=== PATIENT | male | born 1940 | race Caucasian/White ===

== ENCOUNTER → 2016-09-01 | Outpatient (CLI) | payer OTHER ==
[~2016-09-01] MED LIST: ACET-1487 PO; AMLO-110 PO; ASPI81TA28 PO; ATOR-24 PO; EMPA1TAB3 PO; GLIM4TAB2 PO; LOSA100T2 PO; METF-384 PO; METO-551 PO; OMEP20CA9 PO; POTA10CA PO; [UNRECOGNIZED DRUG - CODE] PO
[2016-09-01 13:27] LABS: BLOOD UREA NITROGEN 27 mg/dl (7-18); GLUCOSE 127 mg/dl (70-99)
[2016-09-01 13:28] LABS: ALT/SGPT 19 U/L (12-78); AST/SGOT 15 U/L (15-37); BUN/CREATININE RATIO 16.8 (10-20); CALCIUM 9.6 mg/dl (8.5-10.1); CARBON DIOXIDE 24 mmol/L (21-32); CHLORIDE 103 mmol/L (98-107); CHOLESTEROL 172 mg/dl (0-200); SODIUM 139 mmol/L (136-145); TRIGLYCERIDES 222 mg/dl (0-150); VERY LOW DENSITY LIPOPROT CALC 44 mg/dl
[2016-09-01 13:31] LABS: CHOLESTEROL/HDL RATIO 2.9; HDL CHOLESTEROL 60 mg/dl; LDL CHOLESTEROL CALCULATED 68 mg/dl
== END | disposition home or self-care (01) ==
LOC: C.LABMFLN 11:05
PROVIDERS: ATTEND Family Medicine
DX: I10 Essential (primary) hypertension (principal); E11.49 Type 2 diabetes mellitus with other diabetic neurological complication; E78.00 Pure hypercholesterolemia, unspecified

== ENCOUNTER → 2016-09-08 | Outpatient (CLI) | payer OTHER ==
[2016-09-08 13:50] LABS: ESTIMATED AVERAGE GLUCOSE 177 mg/dl; HA1C FLAG Normal (Normal)
== END | disposition home or self-care (01) ==
LOC: C.LABMFLN 09:14
PROVIDERS: ATTEND Family Medicine
DX: E11.49 Type 2 diabetes mellitus with other diabetic neurological complication (principal)

== ENCOUNTER → 2016-12-25 | Outpatient (CLI) | payer OTHER ==
[~2016-12-25] MED LIST changes: +CANA1TAB8; +HYZ/50125 PO; +OMEG10007 PO
--- NOTE | 2017-01-26 08:03 | CODING QUERY NO DIAGNOSIS ---
TREATMENT RENDERED WITHOUT A DIAGNOSIS To promote full compliance with coding requirements relating to patient care, physician participation is requested in all cases of mud car worker uncertainty. Please assist us with providing a diagnosis/symptom for the test(s) below: A diagnosis/symptom was not documented on your Order. A valid diagnosis/symptom is required to bill all insurances. Please remember that we are unable to code a diagnosis of rule out, probable, possible, questionable, or suspected. Tests that require a diagnosis: * PSA DIAGNOSIS: Provider Signature: Date: Thank you Sangeetha Carvalho [employer] Once completed, please kindly fax back to [phone] For questions please call [phone]
== END | disposition home or self-care (01) ==
LOC: C.LABMFLN 18:24
PROVIDERS: ATTEND Physician Assistant Medical
DX: C61 Malignant neoplasm of prostate (principal)

== ENCOUNTER → 2017-01-04 | Outpatient (CLI) | payer OTHER ==
[2017-01-04 13:24] LABS: ALT/SGPT 24 U/L (12-78); AST/SGOT 15 U/L (15-37); BLOOD UREA NITROGEN 32 mg/dl (7-18); BUN/CREATININE RATIO 18.8 (10-20); CARBON DIOXIDE 25 mmol/L (21-32); CHLORIDE 107 mmol/L (98-107); CHOLESTEROL 159 mg/dl (0-200); GLUCOSE 143 mg/dl (70-99); POTASSIUM 3.7 mmol/L (3.5-5.1); SODIUM 143 mmol/L (136-145)
[2017-01-04 13:26] LABS: ALB/GLOB RATIO 1.2 (0.9-2); ALKALINE PHOSPHATASE 59 U/L (45-117); CHOLESTEROL/HDL RATIO 2.7; HDL CHOLESTEROL 58 mg/dl; LDL CHOLESTEROL CALCULATED 74 mg/dl; TRIGLYCERIDES 135 mg/dl (0-150); VERY LOW DENSITY LIPOPROT CALC 27 mg/dl
[2017-01-04 13:30] LABS: CALCIUM 9.5 mg/dl (8.5-10.1)
[2017-01-04 13:37] LABS: RATIO 125.8 mcg/mg (0-30.0)
== END | disposition home or self-care (01) ==
LOC: C.LABMFLN 10:22
PROVIDERS: ATTEND Family Medicine
DX: I25.10 Atherosclerotic heart disease of native coronary artery without angina pectoris (principal); E11.49 Type 2 diabetes mellitus with other diabetic neurological complication; E78.00 Pure hypercholesterolemia, unspecified; M54.16 Radiculopathy, lumbar region

== ENCOUNTER → 2017-01-15 | Outpatient (CLI) | payer OTHER ==
[2017-01-16 07:39] LABS: ESTIMATED AVERAGE GLUCOSE 183 mg/dl; HA1C FLAG Normal (Normal)
== END ==
LOC: C.LABMFLN 11:51
PROVIDERS: ATTEND Family Medicine
DX: I10 Essential (primary) hypertension (principal); E11.49 Type 2 diabetes mellitus with other diabetic neurological complication; E78.00 Pure hypercholesterolemia, unspecified

== ENCOUNTER → 2017-01-16 | Outpatient (CLI) | payer OTHER ==
[~2017-01-16] MED LIST changes: -CANA1TAB8; -HYZ/50125 PO; -OMEG10007 PO
[2017-01-16 13:44] VITALS: BP 137/78; PULSE 67; O2SAT 95
--- NOTE | 2017-01-16 15:14 | Radiation Oncology Follow-Up ---
Radiation Oncology Follow-Up Date of Visit Jan 16, 2017. Reason For Visit This patient returns today for his regular scheduled active surveillance follow- up visit. He was last seen in July 2016 and is being followed every 6 months. Radiation Completion Date none, Active Surveillance History of Present Illness Mr. Conde was previously seen on 09/03/2015. He was seen initially on 2014 for a consultation. The patient decided at that time to proceed with active surveillance. He presented with a prostate-specific antigen of 8.64 and a clinical stage TIc. 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 His prostate-specific antigen at that time was performed on 05/05/2015 and was 6.9. Since that time the patient continues to do well. He denies any bony pain or discomfort. He denies any significant change in his all or bladder status. His AUA remains very good with a value of 6. He also completed The Expanded Prostate Cancer Index Composite for Clinical Practice (EPIC-CP). He recorded 0 of 12 urinary incontinence symptom score, one of 12 urinary irritation/obstruction symptom score, 0 of 12 bowel symptom score, 6 of 12 sexual symptom score and 2 of 12 vitality/hormonal symptom score. His Overall Prostate Cancer Quality of Life Score was 9 out of 60. This is relatively stable with his prior score being 10 out of 60. His AUA has significantly improved from 15 in June. Since August the patient has continued to do fairly well. He has noticed a slight increase in his AUA score which was 9-10 compared to 6 in August.-His EPIC-CP score is remained fairly stable at 9 today compared to 10 in August. The patient does note occasional discomfort in the right groin region that is intermittent and unrelated to bowel movements or urination. He denies any significant bowel changes. He underwent a repeat prostate-specific antigen as ordered by Dr. Bean performed on 01/07/2016. This was 7.47 which was increased from 7.28 in August of this year. Since the patient's visit in February 2016 he continued to do well. His AUA score was a 9 which is unchanged from his previous reported scores. HisEPIC-CP score was an 11/60. This was slightly higher than the 9. He reported in February and a 10 in August. The patient has had a repeat prostate-specific antigens. His prostate-specific antigen from 04/28/2016 was 8.43. This was repeated on 2015 and was 9.07. Both of these are an increase from his reported prostate- specific antigen from December 2015 of 7.47. Interim History Since the patient's last visit on 07/18/2016 he is noted the presence of some back pain. He was seen by his PCP Dr. Bean who ordered a MRI. This was performed on 12/31/2014. This revealed multilevel degenerative disc disease with the worst affected areas at L4-L5 followed by L3-L4 and L5-S1. There was no evidence of metastatic bony disease. The patient's urinary symptoms continue to improve. His AUA score in July was a 9. Today he did improve to a 5. We also continue to follow his EPIC-CP QoL score which in July was in 11 and today was a 7. He continues to be followed with serial prostate-specific antigens. His most recent was on 12/25/2016. This showed a slow but steady increase to 9.55. This is up from his prostate-specific antigen on 07/04/2016 at 9.07. Patient otherwise has no other complaints and remains stable. Allergies Coded Allergies: No Known Allergies (Verified , NONE, 04/07/15) Home Medications Scheduled Amlodipine (Norvasc), 5 MG PO DAILY Aspirin (Aspirin Ec), 81 MG PO DAILY Atorvastatin (Lipitor), 40 MG PO HS Empagliflozin (Jardiance), 25 MG PO QAM Empagliflozin (Jardiance), 1 TAB PO DAILY Losartan Potassium & Hydrochlo (Hyzaar), 1 TAB PO DAILY Metformin Hcl (Glucophage), 1,000 MG PO BID Metoprolol Tartrate (Lopressor), 50 MG PO Q12 Omeprazole (Prilosec), 20 MG PO QAM Potassium Chloride (Potassium Chloride), 10 MEQ PO BID Terazosin HCl (Terazosin HCl), 5 MG PO HS Scheduled PRN Acetaminophen (Tylenol Arthritis Ext Rel), 1,300 MG PO Q8H PRN for Pain Review of Systems Gastrointestinal: Symptoms: WNL Oral: Symptoms: No Problems Respiratory: Symptoms: WNL Urinary: Symptoms: Frequency Comments: denies pain or burning, nocturia 2 - 3 , Skin: Symptoms: No Problems Physical Exam Vital Signs Date Time Temp Pulse Resp B/P (MAP) Pulse Ox O2 Delivery O2 Flow Rate FiO2 6/6/17 13:44 67 20 137/78 95 Pain: Side: Bilateral Patient Pain Scale: 0 - 10 Initial Pain Intensity: 0.0 General Appearance: WD/WN, + mild distress (from his intermittent low back pain.) Eyes: normal inspection ENT: normal ENT inspection Neck: supple, no adenopathy Respiratory/Chest: chest non-tender, lungs clear, normal breath sounds Cardiovascular: regular rate, rhythm, no murmur Abdomen: non tender Anal / Rectum: On digital rectal exam there is normal sphincter tone. The prostate is not enlarged. There is no induration or nodularity palpated on the prostate. There are no rectal mucosal abnormalities appreciated and no blood on the examining finger. Extremities: normal range of motion Neurologic/Psychiatric: normal mood/affect, oriented x 3 Skin: normal color Lymphatic: no adenopathy Laboratory Studies Test 12/25/16 14:56 01/04/17 10:02 01/15/17 16:33 Prostate Specific Antigen 9.550 ng/ml (0.000-4.000) Urine Random Creatinine 93.0 mg/dl Urine Random Microalbumin 117.0 mg/L Urine Microalbumin/Creatinine Ratio 125.8 mcg/mg (0-30.0) Sodium Level 143 mmol/L (136-145) Potassium Level 3.7 mmol/L (3.5-5.1) Chloride Level 107 mmol/L (98-107) Carbon Dioxide Level 25 mmol/L (21-32) Anion Gap 11.0 mmol/L (3-11) Blood Urea Nitrogen 32 mg/dl (7-18) Creatinine 1.70 mg/dl (0.60-1.40) Estimated GFR () 43.8 Estimated GFR (Non- 37.8 BUN/Creatinine Ratio 18.8 (10-20) Random Glucose 143 mg/dl (70-99) Calcium Level 9.5 mg/dl (8.5-10.1) Total Bilirubin 0.7 mg/dl (0.2-1) Aspartate Amino Transferase (AST) 15 U/L (15-37) Alanine Aminotransferase (ALT) 24 U/L (12-78) Alkaline Phosphatase 59 U/L (45-117) Total Protein 7.2 gm/dl (6.4-8.2) Albumin 3.9 gm/dl (3.4-5.0) Globulin 3.3 gm/dl (2.5-4.0) Albumin/Globulin Ratio 1.2 (0.9-2) Triglycerides Level 135 mg/dl (0-150) Cholesterol Level 159 mg/dl (0-200) HDL Cholesterol 58 mg/dl LDL Cholesterol, Calculated 74 mg/dl VLDL Cholesterol, Calculated 27 mg/dl Cholesterol/HDL Ratio 2.7 Estimated Average Glucose 183 mg/dl Hemoglobin A1c 8.0 % (4.5-5.6) Assessment & Plan In summary Mr. Conde is a 76-year-old male was diagnosed with an intermediate risk prostate cancer in October 2014. His presenting prostate-specific antigen was 8.64. His presenting [place] was 3.4 and 4.3. Based on the anticipated growth rate of these [place] scores I would anticipate a doubling time of 3-4 years. We entered his prostate-specific antigen data into the [facility] prostate-specific antigen doubling time total. This gave a doubling time of 39.3 months or 3.3 years. The velocity is 1.4 ng per mL per year. This is consistent with the anticipated growth rate. I therefore spoke with the patient about the decision to continue with active surveillance. The patient at this point felt comfortable and would like to continue active surveillance. For this reason we will see him again in 6 months with a repeat prostate-specific antigen. Given a prostate-specific antigen under 10 at this time with a normal MRI showing degenerative changes but no metastatic disease no additional studies I believe are necessary at this time. However as the patient's prostate-specific antigen continues to gradually increase as anticipated and especially if he becomes symptomatic in other areas a bone scan would be reasonable to consider at that time. We will therefore see this patient in follow-up in 6 months with a repeat prostate-specific antigen. Thank you for allowing us to participate in the care of this patient. This chart was completed in part utilizing [employer] Voice Recognition software. Attempts were made to minimize the grammatical errors, random word insertions, pronoun errors and incomplete sentences. Any formal questions or concerns about the content, text or information contained within the body of this dictation should be directly addressed to the provider for clarification. Rico Lyons MD Department of Radiation Oncology [facility] Total Time In Follow-Up I spent 15 minutes in discussion of the prostate-specific antigen changes and its implications. I spent 15 minutes in review of his chart and in preparation of this document. Copy To Jb Bean M.D.; Cristopher Tobar MD
== END | disposition home or self-care (01) ==
LOC: C.ONC 13:05
PROVIDERS: ATTEND Physician Assistant Medical
DX: Z08 Encounter for follow-up examination after completed treatment for malignant neoplasm (principal); Z92.3 Personal history of irradiation; Z85.46 Personal history of malignant neoplasm of prostate

== ENCOUNTER → 2017-05-17 | Outpatient (CLI) | payer OTHER ==
[~2017-05-17] MED LIST changes: -GLIM4TAB2 PO
[2017-05-17 14:32] LABS: ALT/SGPT 21 U/L (12-78); BLOOD UREA NITROGEN 25 mg/dl (7-18); BUN/CREATININE RATIO 15.9 (10-20); CALCIUM 9.8 mg/dl (8.5-10.1); CARBON DIOXIDE 26 mmol/L (21-32); CHLORIDE 106 mmol/L (98-107); CHOLESTEROL 159 mg/dl (0-200); GLUCOSE 130 mg/dl (70-99); POTASSIUM 4.2 mmol/L (3.5-5.1); SODIUM 140 mmol/L (136-145); TRIGLYCERIDES 194 mg/dl (0-150); VERY LOW DENSITY LIPOPROT CALC 39 mg/dl
[2017-05-17 14:35] LABS: ALB/GLOB RATIO 1.2 (0.9-2); ALKALINE PHOSPHATASE 65 U/L (45-117); AST/SGOT 17 U/L (15-37); CHOLESTEROL/HDL RATIO 2.6; HDL CHOLESTEROL 62 mg/dl; LDL CHOLESTEROL CALCULATED 58 mg/dl
== END | disposition home or self-care (01) ==
LOC: C.LABMFLN 11:46
PROVIDERS: ATTEND Family Medicine
DX: I10 Essential (primary) hypertension (principal); E11.49 Type 2 diabetes mellitus with other diabetic neurological complication; E78.00 Pure hypercholesterolemia, unspecified

== ENCOUNTER → 2017-07-03 | Outpatient (CLI) | payer OTHER | END | disposition home or self-care (01) | LOC: C.LABMFLN 12:47 | PROVIDERS: ATTEND Physician Assistant Medical | DX: C61 Malignant neoplasm of prostate (principal) ==

== ENCOUNTER → 2017-07-19 | Outpatient (CLI) | payer OTHER ==
[~2017-07-19] MED LIST changes: -AMLO-110 PO; +AMLO5TAB3 PO; +CANA1TAB8; +GLIM4TAB2 PO; +HYZ/50125 PO; +OMEG10007 PO; +TERA5CAP59 PO; -[UNRECOGNIZED DRUG - CODE] PO
[2017-07-19 13:12] VITALS: BP 122/71; PULSE 65; TEMP 36.6; O2SAT 96
--- NOTE | 2017-07-19 14:36 | Radiation Oncology Follow-Up ---
Radiation Oncology Follow-Up Date of Visit Jul 19, 2017. Reason For Visit This patient returns for his regular scheduled 6 month follow-up visit. Radiation Completion Date none History of Present Illness Mr. Conde was previously seen on 09/03/2015. He was seen initially on 2014 for a consultation. The patient decided at that time to proceed with active surveillance. He presented with a prostate-specific antigen of 8.64 and a clinical stage TIc. His biopsy at the time revealed an adenocarcinoma with a [place] grade 3+4 and 4+3. His prostate-specific antigen at that time was performed on 05/05/2015 and was 6.9. Since that time the patient continues to do well. He denies any bony pain or discomfort. He denies any significant change in his all or bladder status. His AUA remains very good with a value of 6. He also completed The Expanded Prostate Cancer Index Composite for Clinical Practice (EPIC-CP). He recorded 0 of 12 urinary incontinence symptom score, one of 12 urinary irritation/obstruction symptom score, 0 of 12 bowel symptom score, 6 of 12 sexual symptom score and 2 of 12 vitality/hormonal symptom score. His Overall Prostate Cancer Quality of Life Score was 9 out of 60. This is relatively stable with his prior score being 10 out of 60. His AUA has significantly improved from 15 in June. Since August the patient had continued to do fairly well. He had noticed a slight increase in his AUA score which was 9-10 compared to 6 in August.-His EPIC-CP score is remained fairly stable at 9 on 01/16/2017 compared to 10 in August 2016. The patient does note occasional discomfort in the right groin region that is intermittent and unrelated to bowel movements or urination. He denies any significant bowel changes. He underwent a repeat prostate-specific antigen as ordered by Dr. Bean performed on 01/07/2016. This was 7.47 which was increased from 7.28 in August of this year. Since the patient's visit in February 2016 he continued to do well. His AUA score was a 9 which is unchanged from his previous reported scores. His EPIC-CP score was an 11/60. This was slightly higher than the 9. He reported in February and a 10 in August. The patient has had a repeat prostate-specific antigens. His prostate-specific antigen from 04/28/2016 was 8.43. This was repeated on and was 9.07. Both of these are an increase from his reported prostate -specific antigen from December 2015 of 7.47. Since the patient's last visit on 07/18/2016 he has noted the presence of some back pain. He was seen by his PCP Dr. Bean who ordered a MRI. This was performed on 12/31/2014. This revealed multilevel degenerative disc disease with the worst affected areas at L4-L5 followed by L3-L4 and L5-S1. There was no evidence of metastatic bony disease. The patient's urinary symptoms continue to improve. His AUA score in July was a 9. Today he did improve to a 5. We also continue to follow his EPIC-CP QoL score which in July was in 11 and today was a 7. He continues to be followed with serial prostate-specific antigens. His most recent was on 12/25/2016. This showed a slow but steady increase to 9.55. This is up from his prostate-specific antigen on 07/04/2016 at 9.07. Patient otherwise has no other complaints and remains stable. Interim History Since the patient's last follow-up visit on 01/16/2017 he has continued to do fairly well. His medical status is stable. His urination is slightly improved. His AUA score was a 9 in January 2017 and on 07/19/2017 it was a 5-6. His EPIC-CP Overall Prostate Cancer Quality of Life Score has improved slightly from 11 in January 2017 to a 7 in July 2017. The patient had a repeat prostate -specific antigen which was performed on 07/03/2017. This showed a value of 12.0 which is increased from 9.55 from 12/25/2016. The patient's presenting [place] grade was 4+3 several years ago a continued rise in prostate-specific antigen is anticipated. This change is consistent with a doubling time of 2 years which would be consistent with a [place] grade of 4+3 or 4+4. Allergies Coded Allergies: No Known Allergies (Verified , NONE, 04/07/15) Home Medications Scheduled Amlodipine (Norvasc), 5 MG PO DAILY Aspirin (Aspirin Ec), 81 MG PO DAILY Atorvastatin (Lipitor), 40 MG PO HS Canagliflozin-Metformin HCl (Invokamet 150-1000 mg), BIDM Hctz/Losartan (Hyzaar 12.5MG/50MG), 1 TAB PO DAILY Losartan Potassium & Hydrochlo (Hyzaar), 1 TAB PO DAILY Metoprolol Tartrate (Lopressor), 50 MG PO Q12 Omeprazole (Prilosec), 20 MG PO QAM Potassium Chloride (Potassium Chloride), 10 MEQ PO BID Terazosin HCl (Terazosin HCl), 5 MG PO HS Scheduled PRN Acetaminophen (Tylenol Arthritis Ext Rel), 1,300 MG PO Q8H PRN for Pain Miscellaneous Medications Fish Oil (Elma-3), 1 CAP PO Review of Systems Gastrointestinal: Symptoms: WNL Oral: Symptoms: No Problems, Mild Soreness Other Oral Symptoms: cld blister lower lip Urinary: Symptoms: Nocturia, Frequency Comments: about the same as last visit Skin: Symptoms: No Problems Physical Exam Vital Signs Date Time Temp Pulse Resp B/P (MAP) Pulse Ox O2 Delivery O2 Flow Rate FiO2 07/19/17 13:12 36.6 65 20 122/71 96 Fatigue: Mild General Appearance: WD/WN, no apparent distress Eyes: normal inspection ENT: normal ENT inspection Neck: supple, no adenopathy Respiratory/Chest: chest non-tender, lungs clear, normal breath sounds Cardiovascular: regular rate, rhythm, no murmur Abdomen: non tender, soft, no organomegaly Anal / Rectum: On rectal exam there is good sphincter tone. The prostate remains soft without evidence of induration or nodularity. Extremities: normal range of motion, no pedal edema Neurologic/Psychiatric: alert, normal mood/affect, oriented x 3 Skin: normal color Lymphatic: no adenopathy Pain Management Patient Reports Pain: No Pain Location: None Patient Preferred Pain Scale: 0 - 10 (patient denies pain) Initial Pain Intensity: 0.0 Pain Management Plan The patient is expressing no pain at this time. We will review the bone scan and modify our treatment approach if there is evidence of bony metastatic disease. Otherwise we will continue to follow the patient on a six-month basis. Laboratory Laboratory Results: were reviewed, and pertinent findings noted in HPI Pathology Pathology Results: not applicable Imaging Imaging Studies: pending Assessment & Plan (Attending) We had a long discussion about the significance of the continued prostate- specific antigen rise. We reviewed the initial rationale behind active surveillance. The patient at the time expressed a desire to avoid aggressive local treatment understanding at that time that the tumor would continue to progress. His wish was 2 avoid treatment until either he become symptomatic or is at high risk for symptoms. With his prostate-specific antigen passing the 10.0 threshold with a recent reading of 12.0 I felt it was prudent to consider a repeat bone scan. The patient had had a prior negative bone scan in November 2014. The patient agreed to this test and it will be scheduled and reviewed with the patient. I indicated that if there is evidence of metastatic disease then we would discuss the initiation of therapy at that time. If however there is no evidence of metastatic disease we will continue to proceed with active surveillance following the patient's wishes and repeat his prostate-specific antigen in 6 months. The patient does understand that at some point, given his anticipated survival of up to 8 years, that he will likely require treatment. He understands the treatment when appropriate is likely to consist of Lupron initially and would not be curative but palliative in nature. He remains comfortable with this decision as his overriding wish is quality of life and the avoidance of unwanted side effects. We will therefore see the patient in follow-up at 6 months with repeat prostate- specific antigen unless his bone scan dictates otherwise. Thank you for allowing us to participate in the care of this patient. This chart was completed in part utilizing [employer] Speech Voice Recognition software. Attempts were made to minimize the grammatical errors, random word insertions, pronoun errors and incomplete sentences. Any formal questions or concerns about the content, text or information contained within the body of this dictation should be directly addressed to the provider for clarification. Rico Lyons MD Department of Radiation Oncology [facility] . Total Time (Attending) In Follow-Up I spent 20 minutes in discussion of his recent prostate-specific antigen and examination of the patient, 15 minutes reviewing his chart from prior scans and in preparation of this document. Copy To Jb Bean M.D.; Cristopher Tobar MD
== END | disposition home or self-care (01) ==
LOC: C.ONC 12:47
PROVIDERS: ATTEND Physician Assistant Medical
DX: Z08 Encounter for follow-up examination after completed treatment for malignant neoplasm (principal); C61 Malignant neoplasm of prostate

== ENCOUNTER → 2017-07-26 | Outpatient (CLI) | payer OTHER ==
[~2017-07-26] MED LIST changes: +AMLO-110 PO; -AMLO5TAB3 PO; -EMPA1TAB3 PO; -GLIM4TAB2 PO; -METF-384 PO; -TERA5CAP59 PO; +[UNRECOGNIZED DRUG - CODE] PO
--- NOTE | 2017-07-26 14:58 | DIAGNOSTIC IMAGING REPORT ---
BONE SCAN WHOLE BODY HISTORY: Prostate carcinoma PROSTATE CA RADIOTRACER: 25.4 mCi Tc-99m MDP STUDY/IMAGES: Planar anterior and posterior whole body imaging was performed 3 hours following the intravenous administration of radiotracer. COMPARISON: 12/02/2014 FINDINGS: Bilateral renal activity is present. Mild increase in activity at T11 and T9 unchanged from the prior study. This presumably is degenerative. Mild degenerative activity of the acromioclavicular joints. No evidence for abnormal soft tissue activity. IMPRESSION: 1. No evidence for metastatic bone disease. 2. Scattered degenerative activity unchanged from the prior study. The above report was generated using voice recognition software. It may contain grammatical, syntax or spelling errors. Electronically signed by: Calvin Nelson M.D. 07/26/2017 2:57 PM Dictated Date/Time: 07/26/2017 2:54 PM
== END | disposition home or self-care (01) ==
LOC: C.NUCL 11:12
PROVIDERS: ATTEND Radiology Radiation Oncology
DX: C61 Malignant neoplasm of prostate (principal)

== ENCOUNTER → 2017-09-21 | Outpatient (CLI) | payer OTHER ==
[2017-09-21 13:19] LABS: HEMOGLOBIN A1C 8.6 % (4.5-5.6)
[2017-09-21 13:35] LABS: ALBUMIN 4.1 gm/dl (3.4-5.0); ALT/SGPT 20 U/L (12-78); AST/SGOT 16 U/L (15-37); BLOOD UREA NITROGEN 19 mg/dl (7-18); CALCIUM 9.2 mg/dl (8.5-10.1); CARBON DIOXIDE 28 mmol/L (21-32); CREATININE 1.75 mg/dl (0.60-1.40); GLUCOSE 129 mg/dl (70-99); SODIUM 139 mmol/L (136-145)
[2017-09-21 13:38] LABS: ALKALINE PHOSPHATASE 64 U/L (45-117); CHOLESTEROL 164 mg/dl (0-200); LDL CHOLESTEROL CALCULATED 65 mg/dl; TOTAL PROTEIN 7.7 gm/dl (6.4-8.2)
== END | disposition home or self-care (01) ==
LOC: C.LABMFLN 10:22
PROVIDERS: ATTEND Family Medicine
DX: I25.10 Atherosclerotic heart disease of native coronary artery without angina pectoris (principal); E11.49 Type 2 diabetes mellitus with other diabetic neurological complication; E78.00 Pure hypercholesterolemia, unspecified

== ENCOUNTER 2019-05-27 14:19 | Inpatient (IN) ==
[2019-05-27 14:43] LABS: Basophils # (auto) 0.02 K/uL (0-0.2); Basophils % (auto) 0.1 %; Eosinophils # (auto) 0.08 K/uL (0-0.5); Eosinophils % (auto) 0.5 %; Hematocrit (blood only) 38.9 % (42-52); Hemoglobin 13.3 g/dL (14.0-18.0); Immature Granulocytes # (auto) 0.05 K/uL (0.00-0.02); Immature Granulocytes % (auto) 0.3 %; Lymphocytes # (auto) 2.51 K/uL (1.2-3.4); Lymphocytes % (auto) 16.8 %; Mean Corpuscular Hemoglobin 29.9 pg (25-34); Mean Corpuscular Hgb Conc 34.2 g/dL (32-36); Mean Corpuscular Volume 87.4 fL (80-100); Mean Platelet Volume 10.7 fL (7.4-10.4); Monocytes # (auto) 0.96 K/uL (0.11-0.59); Monocytes % (auto) 6.4 %; Neutrophils # (auto) 11.29 K/uL (1.4-6.5); Neutrophils % (auto) 75.9 %; Platelet Count 233 K/uL (130-400); RDW Coefficient of Variation 13.5 % (11.5-14.5); RDW Standard Deviation 43.6 fL (36.4-46.3); Red Blood Count 4.45 M/uL (4.7-6.1); White Blood Count 14.91 K/uL (4.8-10.8)
[2019-05-27] MEDS ORDERED: SODIUM CHLORIDE 0.9% 500 ML IV SCH (14:45)
--- NOTE | 2019-05-27 14:55 | XRay Report ---
XR chest 1V portable CLINICAL HISTORY: Weakness. COMPARISON STUDY: No previous studies for comparison. FINDINGS: The patient is is mildly rotated. Note is made of mild cardiomegaly without evidence for pu lmonary edema. There is no consolidation to suggest pneumonia. No pneumothorax or pleural effusion is noted. IMPRESSION: 1. No acute cardiopulmonary findings. 2. Mildly rotated study. 3. Mild cardiomegaly. Electronically signed by: Albino Kim M.D. 05/27/2019 2:53 PM
[2019-05-27 14:58] LABS: Partial Thromboplastin Ratio 0.9; Partial Thromboplastin Time 23.5 Seconds (21.0-31.0); Prothrombin Time 10.7 Seconds (9.0-12.0)
[2019-05-27 15:01] LABS: Albumin Level 4.1 gm/dl (3.4-5.0); BUN Creatinine Ratio 19.2 (10-20); Calcium 9.5 mg/dl (8.5-10.1); Creatinine Clr Calc Pharmacy 28.9 ml/min; Magnesium 1.8 mg/dl (1.8-2.4); Potassium 4.3 mmol/L (3.5-5.1)
[2019-05-27] MEDS ORDERED: SODIUM CHLORIDE 0.9% 1000ML 500 ML IV ONE (15:18)
[2019-05-27 15:21] LABS: Albumin Globulin Ratio 1.2 (0.9-2); Bilirubin,Total 0.6 mg/dl (0.2-1); Globulin 3.5 gm/dl (2.5-4.0); Thyroid Stimulating Hormone 3.43 uIu/ml (0.300-4.500); Total Protein 7.6 gm/dl (6.4-8.2); Troponin I 0.314 ng/ml (0-0.045)
--- NOTE | 2019-05-27 16:32 | History & Physical Report ---
Date of Service May 27, 2019 Assessment & Plan (1) SVT (supraventricular tachycardia): Consult cardiology. Check echocardiogram. Monitor electrolytes closely. Continue beta-blockers. Present on Admission?: Yes (2) Elevated troponin: Monitor EKG and cardiology. Further plan per cardiology. Present on Admission?: Yes (3) PAUL (acute kidney injury): Hold metformin. Hold losartan and HCTZ. Add gentle IV fluids. May need nephrology consultation if does not improve by a.m. Present on Admission?: Yes (4) 2-vessel coronary artery disease: (5) Benign essential hypertension: Continue home medication. Losartan HCTZ on hold for now. Present on Admission?: Yes (6) Hypercholesterolemia: Continue home meds. (7) Diabetes mellitus with neurological manifestation: Add Sliding-scale insulin. Continue home insulin. Present on Admission?: Yes History of Present Illness Chief Complaint: Abnormal EKG Primary Care Provider: Jb Bean MD The patient is 79 years old male who was sent from the carpet installer's office after he was found to be having cardiac arrhythmia. There was question of atrial flutter versus SVT. Patient denies any chest pain or palpitations. No dizziness or lightheadedness. No syncope. Here in the ER , he was found to be having SVT and it resolved after Valsalva maneuver. Currently the patient is feeling better. He will be admitted for further evaluation and management. The blood labs show acute renal failure. He denies any nausea vomiting. No diarrhea. No shortness of breath. Allergies Allergy/AdvReac Type Severity Reaction Status Date / Time No Known Drug Allergies Allergy Verified 05/07/19 13:04 Home Medications Home Medications Medication Instructions Recorded Confirmed Type aspirin 81 mg tablet 81 mg PO DAILY #1 tab 01/20/19 05/27/19 History atorvastatin 40 mg tablet 40 mg PO DAILY #90 tab 01/23/19 05/27/19 Rx glimepiride 4 mg tablet 4 mg PO BID #180 tab 01/23/19 05/27/19 Rx insulin glargine (U-300) conc. 300 10 units SQ HS #4.5 ml 01/23/19 05/27/19 Rx unit/mL (1.5 mL) subcutaneous pen isosorbide mononitrate ER 30 mg 30 mg PO DAILY #90 tab 01/23/19 05/27/19 Rx tablet,extended release 24 hr magnesium 400 mg (as magnesium 400 mg PO DAILY #90 tab 01/23/19 05/27/19 Rx oxide) tablet omega-3 acid ethyl esters 1 gram 1 cap PO BID #180 cap 01/23/19 05/27/19 Rx capsule amlodipine 5 mg tablet 2.5 mg PO DAILY #45 tab 02/11/19 05/27/19 Rx losartan 50 mg-hydrochlorothiazide 1 tab PO DAILY #90 tab 02/26/19 05/27/19 Rx 12.5 mg tablet metformin 1,000 mg tablet 1,000 mg PO BID #180 tab 03/13/19 05/27/19 Rx potassium chloride ER 10 mEq 10 meq PO BID #180 tab 04/22/19 05/27/19 Rx tablet,extended release metoprolol tartrate 50 mg tablet 50 mg PO BID #180 tab 05/16/19 05/27/19 Rx omeprazole 20 mg capsule,delayed 20 mg PO DAILY #90 cap 05/21/19 05/27/19 Rx release terazosin 5 mg capsule 5 mg PO DAILY #90 cap 05/26/19 05/27/19 Rx Past Med/Surg History Medical History Impingement syndrome of right shoulder (Acute) Proteinuria (Acute) Lumbar radiculopathy (Acute) Hypertension (Acute) Hypercholesterolemia (Acute) Hearing loss of both ears due to cerumen impaction (Acute) Falling (Acute) Essential familial hypercholesterolemia (Acute) Esophageal reflux (Acute) Diabetic peripheral neuropathy (Acute) Diabetes mellitus with neurological manifestation (Acute) Back pain (Acute) Allergic rhinitis (Acute) Age-related cognitive decline (Acute) Adenomatous polyposis coli (Acute) 2-vessel coronary artery disease (Acute) Family History Other Cancer Diabetes Social History Preferred Language: Indian Communication Ability: Effective Rock Breaker Required: No Beliefs That Will Affect Care: None Current Living Situation: Spouse Other Information That Helps Us Care for You: No Feels Safe at Home: Yes Safety Concerns: Feels Safe At This Time Smoking Status: Never smoker Hx Alcohol Use: No Hx Substance Use: No caffeine: Yes Seatbelt Use: sometimes Review of Systems Review of Systems: All systems reviewed & are unremarkable except as noted in HPI & below Physical Exam Physical Exam: GENERAL : No acute distress EYES: No icterus, gaze conjugate NOSE: No evidence of epistaxis MOUTH: No lesions or candidiasis, mucosa moist NECK: Supple LUNGS: CTA B/L, no wheezes, rales or rhonchi HEART: Regular, rate controlled ABDOMEN: Soft, NT, ND, BS Present EXTREMITIES: No LE edema, pedal pulses intact NEURO: A&OX3 Results & Data Vital Signs (Past 12 Hours) Vital Signs Temp Pulse Pulse Resp BP BP Pulse Ox 05/27/19 15:22 72 20 105/71 96 05/27/19 14:43 96 05/27/19 14:21 97.3 F L 164 H 18 99/67 L 98 Laboratory Results 05/27/19 14:35 05/27/19 14:35 05/27/19 05/27/19 05/27/19 Range/Units 14:35 14:35 14:35 WBC 14.91 H (4.8-10.8) K/uL RBC 4.45 L (4.7-6.1) M/uL Hgb 13.3 L (14.0-18.0) g/dL Hct 38.9 L (42-52) % MCV 87.4 (80-100) fL MCH 29.9 (25-34) pg MCHC 34.2 (32-36) g/dL RDW Std Deviation 43.6 (36.4-46.3) fL RDW Coeff of Alexa 13.5 (11.5-14.5) % Plt Count 233 (130-400) K/uL MPV 10.7 H (7.4-10.4) fL Immature Gran % (Auto) 0.3 % Neut % (Auto) 75.9 % Lymph % (Auto) 16.8 % [place] % (Auto) 6.4 % Eos % (Auto) 0.5 % Baso % (Auto) 0.1 % Immature Gran # (Auto) 0.05 H (0.00-0.02) K/uL Neut # (Auto) 11.29 H (1.4-6.5) K/uL Lymph # (Auto) 2.51 (1.2-3.4) K/uL [place] # (Auto) 0.96 H (0.11-0.59) K/uL Eos # (Auto) 0.08 (0-0.5) K/uL Baso # (Auto) 0.02 (0-0.2) K/uL PT 10.7 (9.0-12.0) Seconds INR 1.0 (0.9-1.1) APTT 23.5 (21.0-31.0) Seconds PTT Ratio 0.9 Sodium 137 (136-145) mmol/L Potassium 4.3 (3.5-5.1) mmol/L Chloride 104 (98-107) mmol/L Carbon Dioxide 22 (21-32) mmol/L Anion Gap 11.0 (3-11) BUN 45 H (7-18) mg/dl Creatinine 2.35 H (0.6-1.4) mg/dl Est Cr Clr Drug Dosing 28.9 ml/min Est GFR ( Amer) 29.0 Est GFR (Non-Af Amer) 25.0 BUN/Creatinine Ratio 19.2 (10-20) Glucose 201 H (70-99) mg/dl Calcium 9.5 (8.5-10.1) mg/dl Magnesium 1.8 (1.8-2.4) mg/dl Total Bilirubin 0.6 (0.2-1) mg/dl AST 13 L (15-37) U/L ALT 27 (12-78) U/L Alkaline Phosphatase 68 (45-117) U/L Troponin I 0.314 H* (0-0.045) ng/ml Total Protein 7.6 (6.4-8.2) gm/dl Albumin 4.1 (3.4-5.0) gm/dl Globulin 3.5 (2.5-4.0) gm/dl Albumin/Globulin Ratio 1.2 (0.9-2) TSH 3.430 (0.300-4.500) uIu/ml Diagnostic Findings XR chest 1V portable CLINICAL HISTORY: Weakness. COMPARISON STUDY: No previous studies for comparison. FINDINGS: The patient is is mildly rotated. Note is made of mild cardiomegaly without evidence for pulmonary edema. There is no consolidation to suggest pneumonia. No pneumothorax or pleural effusion is noted. IMPRESSION: 1. No acute cardiopulmonary findings. 2. Mildly rotated study. 3. Mild cardiomegaly. Code Status & VTE Plan Code Status Full code PG Care Time/CCT Total # of Minutes Spent Total Time Spent with Patient: Total time spent is greater than 50% in coordination of care (as documented) at patient's floor/unit and/or counseling patient:
[2019-05-27] MEDS ORDERED: ACETAMINOPHEN 325 MG TAB PO PRN (17:55)
[2019-05-27 18:48] LABS: Appearance Urine Clear (Clear); Bacteria Urine Automated Negative (Negative); Bilirubin Urine Negative (Negative); Blood Urine Negative (Negative); Color Urine Dark Yellow; Glucose Urine UA Negative (Negative); Ketones Urine Trace (Negative); Leukocyte Esterase Urine Negative (Negative); Nitrite Urine Negative (Negative); Protein Urine 1+ (Negative); RBC Urine Automated 0-4 /hpf (0-4); Specific Gravity Urine 1.025 (1.000-1.030); Urobilinogen Urine Negative (Negative)
[2019-05-27 19:16] LABS: Urine Potassium 87.9 mmol/L
[2019-05-27] MEDS: SODIUM CHLORIDE 0.9% 1000ML 1,000 ML IV SCH (19:21)
[2019-05-27] MEDS: INSULIN ASPART 100 UNITS/ML 3 ML PEN SC SCH ×2 (19:22→20:47)
[2019-05-27] MEDS: POTASSIUM CHLORIDE 10 MEQ TABCR PO SCH (19:23)
[2019-05-27] MEDS: METOPROLOL TARTRATE 50 MG TAB PO SCH (19:24)
[2019-05-27] MEDS: OMEGA-3 (PURIFIED FISH OIL) 1 GM CAP PO SCH (19:25)
[2019-05-27] MEDS ORDERED: INSULIN GLARGINE SOLOSTAR 100 UNITS/ML 3 ML PEN SQ ONE (21:00)
--- NOTE | 2019-05-27 21:36 | Emergency Department Note ---
Entered by Tiff Hinojosa acting as a scribe for History of Present Illness General Chief complaint: Cardiac Assessment Stated complaint: SENT FROM DR MANDEL - CARDIAC Time Seen by Provider: 05/27/19 14:26 Source: patient Mode of arrival: ambulatory Limitations: no limitations History of Present Illness Onset (ago): hour(s) 6 Location: chest Radiation: non-radiation Pain Consistency: + constant Relieved By: + none Exacerbated By: + none Associated symptoms: + nausea/vomiting Treatments prior to arrival: none The patient is an 79 year old male who presents to the Emergency Room with complaints of needing a cardiac assessment. The patients states that today the patient was seeing Dr. Mandel when he instructed him to come to the ED due to his heart rate. She states that she has no idea why. She notes that he did vomit this morning for no reason. She notes that he has had a stress test in the past. The patient denies feeling his heart race, loss of appetite, a history of an AK, a history of a-fib, a history of a heart cath, use of alcohol, use of tobacco, and having any complaints over the last few days. Home Medications Home Medications Medication Instructions Recorded Confirmed Type aspirin 81 mg tablet 81 mg PO DAILY #1 tab 01/20/19 05/27/19 History atorvastatin 40 mg tablet 40 mg PO DAILY #90 tab 01/23/19 05/27/19 Rx glimepiride 4 mg tablet 4 mg PO BID #180 tab 01/23/19 05/27/19 Rx insulin glargine (U-300) conc. 300 10 units SQ HS #4.5 ml 01/23/19 05/27/19 Rx unit/mL (1.5 mL) subcutaneous pen isosorbide mononitrate ER 30 mg 30 mg PO DAILY #90 tab 01/23/19 05/27/19 Rx tablet,extended release 24 hr magnesium 400 mg (as magnesium 400 mg PO DAILY #90 tab 01/23/19 05/27/19 Rx oxide) tablet omega-3 acid ethyl esters 1 gram 1 cap PO BID #180 cap 01/23/19 05/27/19 Rx capsule amlodipine 5 mg tablet 2.5 mg PO DAILY #45 tab 02/11/19 05/27/19 Rx losartan 50 mg-hydrochlorothiazide 1 tab PO DAILY #90 tab 02/26/19 05/27/19 Rx 12.5 mg tablet metformin 1,000 mg tablet 1,000 mg PO BID #180 tab 03/13/19 05/27/19 Rx potassium chloride ER 10 mEq 10 meq PO BID #180 tab 04/22/19 05/27/19 Rx tablet,extended release metoprolol tartrate 50 mg tablet 50 mg PO BID #180 tab 05/16/19 05/27/19 Rx omeprazole 20 mg capsule,delayed 20 mg PO DAILY #90 cap 05/21/19 05/27/19 Rx release terazosin 5 mg capsule 5 mg PO DAILY #90 cap 05/26/19 05/27/19 Rx Allergies Allergy/AdvReac Type Severity Reaction Status Date / Time No Known Drug Allergies Allergy Verified 05/07/19 13:04 Past Med/Surg History Medical History Impingement syndrome of right shoulder (Acute) Proteinuria (Acute) Lumbar radiculopathy (Acute) Hypertension (Acute) Hypercholesterolemia (Acute) Hearing loss of both ears due to cerumen impaction (Acute) Falling (Acute) Essential familial hypercholesterolemia (Acute) Esophageal reflux (Acute) Diabetic peripheral neuropathy (Acute) Diabetes mellitus with neurological manifestation (Acute) Back pain (Acute) Allergic rhinitis (Acute) Age-related cognitive decline (Acute) Adenomatous polyposis coli (Acute) 2-vessel coronary artery disease (Acute) Family History Other Cancer Diabetes Social History Preferred Language: Barbadian Communication Ability: Effective Optical Laboratory Manager Required: No Beliefs That Will Affect Care: None Current Living Situation: Spouse Other Information That Helps Us Care for You: No Feels Safe at Home: Yes Safety Concerns: Feels Safe At This Time Smoking Status: Never smoker Hx Alcohol Use: No Hx Substance Use: No caffeine: Yes Seatbelt Use: sometimes Review of Systems See HPI for pertinent positives & negatives. and A total of 10 systems reviewed and were otherwise negative Physical Exam Vital Signs Vital Signs - 24 hr 05/27/19 14:21 05/27/19 14:43 05/27/19 15:22 Temperature 36.3 C L Temperature Source Oral Sepsis Recent Fever Within 48 Hours No Sepsis New/Unexplained Change in Mental Status No Sepsis Action Taken by Nursing No Action Required Pulse Rate 164 H Pulse Rate [Right Finger] 72 Respiratory Rate 18 20 Respiratory Effort / Characteristics Non-Labored Respiratory Depth Normal Blood Pressure 99/67 L Blood Pressure [Left Arm] 105/71 Blood Pressure Mean 77 Blood Pressure Mean [Left Arm] 82 Pulse Oximetry 98 96 96 Oxygen Delivery Method Room Air Room Air GENERAL: Patient is awake, alert, very anxious appearing, appears to be in distress. EYES: The conjunctivae are clear. The pupils are round and reactive. EARS, NOSE, MOUTH AND THROAT: The nose is without any evidence of any deformity. Mucous membranes are moist.Tongue is midline NECK: The neck is nontender and supple. RESPIRATORY: Normal respiratory effort is noted. There is no evidence of wheezing rhonchi or rales to auscultation. CARDIOVASCULAR: Heart rate is tachycardic, regular rhythm. There no murmurs rubs or gallops normal S1 normal S2 GASTROINTESTINAL: The abdomen is soft. Bowel sounds are present in all quadrants. Abdomen is nontender. MUSCULOSKELETAL/EXTREMITIES: There is no evidence of gross deformity. Full range of motion is noted in the hips and shoulders. SKIN: There is no obvious evidence of any rash. There are no petechiae, pallor or cyanosis noted. Pedal edema bilaterally. NEUROLOGIC: Patient is awake alert and oriented x3. Course 1426: Past medical records reviewed. The patient was evaluated in room A2. A complete history and physical exam was performed. 1014: I performed a Valsalva maneuver and the patient went from SVT to Normal Sinus Rhythm. 1550: I discussed the patients case with Dr. Stone, [facility]. The patient will be further evaluated. 1555: I reevaluated the patient. I discussed his results and my recommendation he remain in the hospital for further evaluation and management and he is agreeable with the plan. Consultations Consultation #1: I discussed the patients case with Dr. Stone, [facility]. The patient will be further evaluated. Time: 15:50 Administered Medications Fish Oil (Bolivar-3 (Purified Fish Oil)) 1 gm PO BID ZACH Stop: 06/26/19 20:59 Last Admin: 05/27/19 19:25 Dose: 1 gm Documented by: [id number] Sodium Chloride (Nss 1000ml) 1,000 mls @ 100 mls/hr IV .Q10H ZACH Stop: 06/26/19 17:54 Last Admin: 05/27/19 19:21 Dose: 100 mls/hr Documented by: [id number] Insulin Aspart (Novolog Flexpen) 0 units SC ACHS ZACH Stop: 06/26/19 18:14 Last Admin: 05/27/19 20:47 Dose: Not Given Documented by: [id number] Cosigned by: [id number] Admin: 05/27/19 19:22 Dose: 4 units Documented by: [id number] Cosigned by: [id number] Metoprolol Tartrate (Lopressor) 50 mg PO BID ZACH Stop: 06/26/19 20:59 Last Admin: 05/27/19 19:24 Dose: 50 mg Documented by: [id number] Potassium Chloride (Klor-Con M10) 10 meq PO BID ZACH Stop: 06/26/19 20:59 Last Admin: 05/27/19 19:23 Dose: 10 meq Documented by: [id number] Discontinued Medications Sodium Chloride (Nss) 500 mls @ 999 mls/hr IV .Q31M ZACH Stop: 05/27/19 15:15 Last Infusion: 05/27/19 15:23 Dose: 0 mls/hr Documented by: [id number] Admin: 05/27/19 14:54 Dose: 999 mls/hr Documented by: [id number] Sodium Chloride (Nss 1000ml) 500 mls @ 999 mls/hr IV .Q31M ONE Stop: 05/27/19 15:48 Last Infusion: 05/27/19 16:31 Dose: 0 mls/hr Documented by: [id number] Admin: 05/27/19 15:21 Dose: 999 mls/hr Documented by: [id number] Insulin Glargine (Lantus Solostar Pen) 8 units SQ HS ONE Stop: 05/27/19 21:01 Last Admin: 05/27/19 19:23 Dose: 8 units Documented by: [id number] Cosigned by: [id number] Medical Decision Making Differential Diagnosis Differential: NSR, SVT, PACs, PVCs, Cardiac Dysrhythmia, Endocrine Dysfunction, Electrolyte/Metabolic Abnormality, Pulmonary Embolism, Infectious, GI, amongst other pathologies entertained. Medical Records Attestation: I reviewed the patient's medical records. Home Medications Current Medication List: was personally reviewed by me Laboratory Data Attestation: I reviewed the patient's lab results. Result diagrams: 05/27/19 14:35 05/27/19 14:35 Lab Results 05/27/19 05/27/19 05/27/19 Range/Units 14:35 14:35 14:35 WBC 14.91 H (4.8-10.8) K/uL RBC 4.45 L (4.7-6.1) M/uL Hgb 13.3 L (14.0-18.0) g/dL Hct 38.9 L (42-52) % MCV 87.4 (80-100) fL MCH 29.9 (25-34) pg MCHC 34.2 (32-36) g/dL RDW Std Deviation 43.6 (36.4-46.3) fL RDW Coeff of Alexa 13.5 (11.5-14.5) % Plt Count 233 (130-400) K/uL MPV 10.7 H (7.4-10.4) fL Immature Gran % (Auto) 0.3 % Neut % (Auto) 75.9 % Lymph % (Auto) 16.8 % [place] % (Auto) 6.4 % Eos % (Auto) 0.5 % Baso % (Auto) 0.1 % Immature Gran # (Auto) 0.05 H (0.00-0.02) K/uL Neut # (Auto) 11.29 H (1.4-6.5) K/uL Lymph # (Auto) 2.51 (1.2-3.4) K/uL [place] # (Auto) 0.96 H (0.11-0.59) K/uL Eos # (Auto) 0.08 (0-0.5) K/uL Baso # (Auto) 0.02 (0-0.2) K/uL PT 10.7 (9.0-12.0) Seconds INR 1.0 (0.9-1.1) APTT 23.5 (21.0-31.0) Seconds PTT Ratio 0.9 Sodium 137 (136-145) mmol/L Potassium 4.3 (3.5-5.1) mmol/L Chloride 104 (98-107) mmol/L Carbon Dioxide 22 (21-32) mmol/L Anion Gap 11.0 (3-11) BUN 45 H (7-18) mg/dl Creatinine 2.35 H (0.6-1.4) mg/dl Est Cr Clr Drug Dosing 28.9 ml/min Est GFR ( Amer) 29.0 Est GFR (Non-Af Amer) 25.0 BUN/Creatinine Ratio 19.2 (10-20) Glucose 201 H (70-99) mg/dl Calcium 9.5 (8.5-10.1) mg/dl Magnesium 1.8 (1.8-2.4) mg/dl Total Bilirubin 0.6 (0.2-1) mg/dl AST 13 L (15-37) U/L ALT 27 (12-78) U/L Alkaline Phosphatase 68 (45-117) U/L Troponin I 0.314 H* (0-0.045) ng/ml Total Protein 7.6 (6.4-8.2) gm/dl Albumin 4.1 (3.4-5.0) gm/dl Globulin 3.5 (2.5-4.0) gm/dl Albumin/Globulin Ratio 1.2 (0.9-2) TSH 3.430 (0.300-4.500) uIu/ml Imaging Data Radiologist's Impression: Radiology results as stated below per my review and the radiologist's interpretation: XR chest 1V portable CLINICAL HISTORY: Weakness. COMPARISON STUDY: No previous studies for comparison. FINDINGS: The patient is is mildly rotated. Note is made of mild cardiomegaly without evidence for pulmonary edema. There is no consolidation to suggest pneumonia. No pneumothorax or pleural effusion is noted. IMPRESSION: 1. No acute cardiopulmonary findings. 2. Mildly rotated study. 3. Mild cardiomegaly. Electronically signed by: Albino Kim M.D. 05/27/2019 2:53 PM ECG Data Attestation: I personally reviewed and interpreted this ECG as follows: Indication: palpitations Rate (beats per minute): 159 Rhythm: sinus tachycardia (Narrow complex tachycardia) Findings: + ST depression; no PVC Comparison ECG Date: from (previous tracing done same day in the office) Change: no significant change Additional Comments: 2nd EKG on 05/27/19: Sinus rhythm, rate of 76, frequent PVC's noted, no acute ST segment abnormalities, SVT has been replaced with sinus rhythm. Blood Pressure Blood Pressure Findings: Normal blood pressure Blood Pressure Disposition: did not require urgent referral MDM Narrative The patient is an 79-year-old male who presented to the emergency department for feeling ill. The patient was seen at his rx specialist's office and was found to have narrow complex tachycardia. The patient was hypotensive and tachycardic upon arrival. He looked very ill. The patient was treated with modified Valsalva maneuver which resulted in normal sinus rhythm with frequent PVCs. I discussed patient's laboratory and radiographic studies with him. He did appear to have signs of dehydration with an elevated creatinine compared to his baseline. He was treated with IV fluids. It is unclear how long the patient's symptoms are ongoing but he does have a mildly elevated troponin and I suspect this is secondary to the narrow complex tachycardia which was likely going on all day. I discussed the patient's laboratory and radiographic studies with the on-call [facility] hospitalist. They have agreed to evaluate the patient in the emergency department for further management disposition. It is possible the patient may require further cardiac work-up. Impression & Plan Chest pain, SVT (supraventricular tachycardia), Elevated troponin, PAUL (acute kidney injury) Discharge Plan Visit Data *Final* Discharge Date/Time: 05/27/19 17:35 Chief Complaint: Cardiac Assessment Stated Complaint: SENT FROM DR MANDEL - CARDIAC ED Provider: Sherif Balderrama Discharge Problem: Chest pain, SVT (supraventricular tachycardia), Elevated troponin, PAUL (acute kidney injury) Patient Disposition: Admitted As Inpatient Discharge Instructions Interventions: ED Discharge Assessment Last Done: 05/27/19 17:35 The scribe's documentation has been prepared under my direction and personally reviewed by me in its entirety. I confirm that the note above accurately reflects all work, treatment, procedures, and medical decision making performed by me.
[2019-05-28] MEDS: SODIUM CHLORIDE 0.9% 1000ML 1,000 ML IV SCH ×2 (05:32→16:00)
[2019-05-28 07:32] LABS: Basophils # (auto) 0.02 K/uL (0-0.2); Basophils % (auto) 0.2 %; Eosinophils # (auto) 0.19 K/uL (0-0.5); Eosinophils % (auto) 2.1 %; Hematocrit (blood only) 33.5 % (42-52); Hemoglobin 11.3 g/dL (14.0-18.0); Immature Granulocytes # (auto) 0.02 K/uL (0.00-0.02); Immature Granulocytes % (auto) 0.2 %; Lymphocytes # (auto) 2.18 K/uL (1.2-3.4); Lymphocytes % (auto) 24.3 %; Mean Corpuscular Hemoglobin 29.2 pg (25-34); Mean Corpuscular Hgb Conc 33.7 g/dL (32-36); Mean Corpuscular Volume 86.6 fL (80-100); Mean Platelet Volume 10.1 fL (7.4-10.4); Monocytes # (auto) 0.78 K/uL (0.11-0.59); Monocytes % (auto) 8.7 %; Neutrophils # (auto) 5.77 K/uL (1.4-6.5); Neutrophils % (auto) 64.5 %; Platelet Count 204 K/uL (130-400); RDW Coefficient of Variation 13.7 % (11.5-14.5); RDW Standard Deviation 43.2 fL (36.4-46.3); Red Blood Count 3.87 M/uL (4.7-6.1); White Blood Count 8.96 K/uL (4.8-10.8)
[2019-05-28] MEDS: INSULIN ASPART 100 UNITS/ML 3 ML PEN SC SCH ×4 (07:44→21:06)
[2019-05-28] MEDS: AMLODIPINE BESYLATE 5 MG TAB PO SCH (07:45)
[2019-05-28] MEDS: ISOSORBIDE MONO EXTENDED REL 30 MG TABCR PO SCH (07:46)
[2019-05-28] MEDS: METOPROLOL TARTRATE 50 MG TAB PO SCH ×2 (07:46→21:08)
[2019-05-28] MEDS: ASPIRIN 81 MG ECTAB PO SCH (07:46)
[2019-05-28] MEDS: ATORVASTATIN 40 MG TAB PO SCH (07:46)
[2019-05-28] MEDS: TERAZOSIN HCL 5 MG CAP PO SCH (07:46)
[2019-05-28] MEDS: MAGNESIUM OXIDE 400 MG TAB PO SCH (07:46)
[2019-05-28] MEDS: POTASSIUM CHLORIDE 10 MEQ TABCR PO SCH ×2 (07:47→21:07)
[2019-05-28] MEDS: OMEGA-3 (PURIFIED FISH OIL) 1 GM CAP PO SCH ×2 (07:47→21:08)
[2019-05-28] MEDS ORDERED: GLIMEPIRIDE 2 MG TAB PO SCH (08:00)
[2019-05-28 08:06] LABS: Albumin Level 3.5 gm/dl (3.4-5.0); BUN Creatinine Ratio 24.2 (10-20); Calcium 9.1 mg/dl (8.5-10.1); Est GFR (African American) 40.3; Est GFR (Non-African American) 34.8; Potassium 3.9 mmol/L (3.5-5.1)
[2019-05-28 08:15] LABS: Albumin Globulin Ratio 1.2 (0.9-2); Bilirubin,Total 0.5 mg/dl (0.2-1); Globulin 2.8 gm/dl (2.5-4.0); Total Protein 6.3 gm/dl (6.4-8.2)
[2019-05-28] MEDS ORDERED: PANTOprazole 40 MG TAB PO SCH (09:00)
--- NOTE | 2019-05-28 09:06 | Cardiology Consultation ---
Date of Consultation May 28, 2019 Assessment & Plan (1) SVT (supraventricular tachycardia): paroxysmal SVT converting to NSR with Valsalva maneuver in ER. No recurrence Likely in setting of dehydration, PAUL Continue metoprolol 50 mg BID for now, home dose. Plan for outpatient ZIO monitor on discharge to evaluate for recurrent arrhythmia. (2) Elevated troponin: Likely demand ischemia in setting of tachycardia and PAUL He has no symptoms to suggest ACS. Echo with preserved LV systolic function, no wall motion abnormalities. (3) PAUL (acute kidney injury): continue IV fluids creatinine trending down hold losartan/hctz today and likely resume on discharge (4) Hypertension: continue current home medications for now. Monitor. BP improved this morning after AM medications. likely resume losartan/hctz on discharge Case discussed in detail with Dr. Carmona Supervising Physician Co-Signing Physician Notes Patient seen and examined with Vikki Blackman PA-C. Agree with findings and assessment as above. Pt presents after being found to be in asymptomatic SVT with RVR. Broken with vagal maneuvers. Will monitor on tele for now. Hold off on med changes at this time. General: Awake, alert and oriented x 3. No acute distress. HEENT: Normocephalic, atraumatic. Pupils equal, round and reactive to light and accommodation. Extraocular muscles are intact. Anicteric sclera. Moist mucous membranes. Neck: No JVD. No bruit. Cardiovascular: Regular. Positive S-4. Normal S-1 and S-2. No S-3. 3/6 mid to late systolic ejection murmur, greatest at the right sternal border, second intercostal space with radiation to the bilateral carotids. No rubs. Pulmonary: Clear to auscultation bilaterally. No rales, rhonchi, or wheezing. Abdomen: Bowel sounds x 4, soft. No rebound, guarding or tenderness. No organomegaly. Extremities: No clubbing, cyanosis or edema. +2 pedal pulses bilaterally. Skin: Warm and dry. History of Present Illness Reason for Consultation: SVT Requesting Physician: Dr. Moreno Attending Physician: Dr. Cramona History of Present Illness Patient is a 79 year old male known to [facility], following with Dr. Mandel. Yesterday patient presented to cardiology office for routine follow up. He apparently had been experiencing nausea and feeling ill yesterday morning. Upon arrival he was found to be tachycardic and hypertensive. EKG demonstrated supraventricular tachycardia vs 2:1 atrial flutter with RVR. Ventricular rates at 156 bpm. He was sent to ER for evaluation and treatment. Upon arrival to ER, he was in persistent SVT. ER physician performed Valsalva maneuvers with patient and successfully converted to NSR with PVC's. He was found to have PAUL, possible dehydration and started on IV fluids. Losartan/HCTZ held on admission. troponin minimally elevated, consistent with demand ischemia in setting of tachycardia. He reports he ate "bad soup" the day prior and had significant nausea, diarrhea and GI upset for 24 hours. He denies ches pain, SOB, dizziness, or sense of palpitations. At time of consult, patient reports feeling "great". Nausea improved. Creatinine trending down this morning. BP improved after AM medications. No recurrent arrhythmias on telemetry. Frequent PVC's noted, consistent with history. HR's ranging 50-60's. He denies chest pain, SOB, palpitations, dizziness, orthopnea, PND or edema. History includes: 1. Mild to moderate coronary atherosclerosis without obstruction by cardiac catheterization 2009.Stable. 2. Hypertension. 3. Hyperlipidemia. 4. Sensed ventricular ectopy 5. Lower extremity peripheral edema 6. Type II diabetes mellitus 7. Chronic back pain, status post epidural steroid injection May 20, 2019 Allergies Allergy/AdvReac Type Severity Reaction Status Date / Time No Known Drug Allergies Allergy Verified 05/07/19 13:04 Home Medications Home Medications Medication Instructions Recorded Confirmed Type aspirin 81 mg tablet 81 mg PO DAILY #1 tab 01/20/19 05/27/19 History atorvastatin 40 mg tablet 40 mg PO DAILY #90 tab 01/23/19 05/27/19 Rx glimepiride 4 mg tablet 4 mg PO BID #180 tab 01/23/19 05/27/19 Rx insulin glargine (U-300) conc. 300 10 units SQ HS #4.5 ml 01/23/19 05/27/19 Rx unit/mL (1.5 mL) subcutaneous pen isosorbide mononitrate ER 30 mg 30 mg PO DAILY #90 tab 01/23/19 05/27/19 Rx tablet,extended release 24 hr magnesium 400 mg (as magnesium 400 mg PO DAILY #90 tab 01/23/19 05/27/19 Rx oxide) tablet omega-3 acid ethyl esters 1 gram 1 cap PO BID #180 cap 01/23/19 05/27/19 Rx capsule amlodipine 5 mg tablet 2.5 mg PO DAILY #45 tab 02/11/19 05/27/19 Rx losartan 50 mg-hydrochlorothiazide 1 tab PO DAILY #90 tab 02/26/19 05/27/19 Rx 12.5 mg tablet metformin 1,000 mg tablet 1,000 mg PO BID #180 tab 03/13/19 05/27/19 Rx potassium chloride ER 10 mEq 10 meq PO BID #180 tab 04/22/19 05/27/19 Rx tablet,extended release metoprolol tartrate 50 mg tablet 50 mg PO BID #180 tab 05/16/19 05/27/19 Rx omeprazole 20 mg capsule,delayed 20 mg PO DAILY #90 cap 05/21/19 05/27/19 Rx release terazosin 5 mg capsule 5 mg PO DAILY #90 cap 05/28/19 Rx Patient History Medical History Impingement syndrome of right shoulder (Acute) Proteinuria (Acute) Lumbar radiculopathy (Acute) Hypertension (Acute) Hypercholesterolemia (Acute) Hearing loss of both ears due to cerumen impaction (Acute) Falling (Acute) Essential familial hypercholesterolemia (Acute) Esophageal reflux (Acute) Diabetic peripheral neuropathy (Acute) Diabetes mellitus with neurological manifestation (Acute) Back pain (Acute) Allergic rhinitis (Acute) Age-related cognitive decline (Acute) Adenomatous polyposis coli (Acute) 2-vessel coronary artery disease (Acute) Family History Other Cancer Diabetes Social History Preferred Language: Arabic Communication Ability: Effective Pain Management Physician Required: No Beliefs That Will Affect Care: None Current Living Situation: Spouse Feels Safe at Home: Yes Smoking Status: Never smoker Hx Alcohol Use: No Hx Substance Use: No caffeine: Yes Seatbelt Use: sometimes Review of Systems Review of Systems: All systems reviewed & are unremarkable except as noted in HPI & below Physical Exam Constitutional: WD/WN, vitals as above well nourished; no acute distress Respiratory: normal respiratory effort, lungs clear to auscultation Cardiovascular: RRR, no murmur, no edema Gastrointestinal (Abdomen): normal bowel sounds, soft, nontender, no hepatosplenomegaly Musculoskeletal: no cyanosis or clubbing, extremities motor strength 5/5 Neurologic: PERRL, EOMI, accommodation nl, no face palsy, no dysarthria Results & Data Vital Signs (Past 12 Hours) Vital Signs Temp Pulse Pulse Resp BP Pulse Ox 05/28/19 07:31 36.5 C 55 L 16 171/82 H 92 05/28/19 04:15 36.7 C 55 L 19 168/88 H 93 05/28/19 01:22 36.7 C 71 19 130/77 94 05/28/19 00:00 67 Laboratory Results 05/28/19 05/28/19 05/28/19 Range/Units 07:42 07:17 07:17 WBC 8.96 (4.8-10.8) K/uL RBC 3.87 L (4.7-6.1) M/uL Hgb 11.3 L (14.0-18.0) g/dL Hct 33.5 L (42-52) % MCV 86.6 (80-100) fL MCH 29.2 (25-34) pg MCHC 33.7 (32-36) g/dL RDW Std Deviation 43.2 (36.4-46.3) fL RDW Coeff of Alexa 13.7 (11.5-14.5) % Plt Count 204 (130-400) K/uL MPV 10.1 (7.4-10.4) fL Immature Gran % (Auto) 0.2 % Neut % (Auto) 64.5 % Lymph % (Auto) 24.3 % Swisher % (Auto) 8.7 % Eos % (Auto) 2.1 % Baso % (Auto) 0.2 % Immature Gran # (Auto) 0.02 (0.00-0.02) K/uL Neut # (Auto) 5.77 (1.4-6.5) K/uL Lymph # (Auto) 2.18 (1.2-3.4) K/uL Swisher # (Auto) 0.78 H (0.11-0.59) K/uL Eos # (Auto) 0.19 (0-0.5) K/uL Baso # (Auto) 0.02 (0-0.2) K/uL PT (9.0-12.0) Seconds INR (0.9-1.1) APTT (21.0-31.0) Seconds PTT Ratio Sodium 142 (136-145) mmol/L Potassium 3.9 (3.5-5.1) mmol/L Chloride 109 H (98-107) mmol/L Carbon Dioxide 27 (21-32) mmol/L Anion Gap 6.0 (3-11) BUN 43 H (7-18) mg/dl Creatinine 1.79 H D (0.6-1.4) mg/dl Est Cr Clr Drug Dosing 38.0 ml/min Est GFR ( Amer) 40.3 Est GFR (Non-Af Amer) 34.8 BUN/Creatinine Ratio 24.2 H (10-20) Glucose 59 L (70-99) mg/dl POC Glucose 76 (70-99) Calcium 9.1 (8.5-10.1) mg/dl Magnesium (1.8-2.4) mg/dl Total Bilirubin 0.5 (0.2-1) mg/dl AST 12 L (15-37) U/L ALT 23 (12-78) U/L Alkaline Phosphatase 62 (45-117) U/L Troponin I (0-0.045) ng/ml Total Protein 6.3 L (6.4-8.2) gm/dl Albumin 3.5 (3.4-5.0) gm/dl Globulin 2.8 (2.5-4.0) gm/dl Albumin/Globulin Ratio 1.2 (0.9-2) TSH (0.300-4.500) uIu/ml Urine Color Urine Appearance (Clear) Urine pH (4.5-7.5) Ur Specific [place] (1.000-1.030) Urine Protein (Negative) Urine Glucose (UA) (Negative) Urine Ketones (Negative) Urine Blood (Negative) Urine Nitrite (Negative) Urine Bilirubin (Negative) Urine Urobilinogen (Negative) Ur Leukocyte Esterase (Negative) Urine WBC (Auto) (0-5) /hpf Urine RBC (Auto) (0-4) /hpf U Hyaline Cast (Auto) (0-5) /lpf U Epithel Cells (Auto) (0-5) /lpf Urine Bacteria (Auto) (Negative) Urine Yeast Urine Sodium mmol/L Urine Potassium mmol/L Urine Chloride mmol/L 05/27/19 05/27/19 05/27/19 Range/Units 20:31 18:25 18:25 WBC (4.8-10.8) K/uL RBC (4.7-6.1) M/uL Hgb (14.0-18.0) g/dL Hct (42-52) % MCV (80-100) fL MCH (25-34) pg MCHC (32-36) g/dL RDW Std Deviation (36.4-46.3) fL RDW Coeff of Alexa (11.5-14.5) % Plt Count (130-400) K/uL MPV (7.4-10.4) fL Immature Gran % (Auto) % Neut % (Auto) % Lymph % (Auto) % Swisher % (Auto) % Eos % (Auto) % Baso % (Auto) % Immature Gran # (Auto) (0.00-0.02) K/uL Neut # (Auto) (1.4-6.5) K/uL Lymph # (Auto) (1.2-3.4) K/uL Swisher # (Auto) (0.11-0.59) K/uL Eos # (Auto) (0-0.5) K/uL Baso # (Auto) (0-0.2) K/uL PT (9.0-12.0) Seconds INR (0.9-1.1) APTT (21.0-31.0) Seconds PTT Ratio Sodium (136-145) mmol/L Potassium (3.5-5.1) mmol/L Chloride (98-107) mmol/L Carbon Dioxide (21-32) mmol/L Anion Gap (3-11) BUN (7-18) mg/dl Creatinine (0.6-1.4) mg/dl Est Cr Clr Drug Dosing ml/min Est GFR ( Amer) Est GFR (Non-Af Amer) BUN/Creatinine Ratio (10-20) Glucose (70-99) mg/dl POC Glucose 172 H (70-99) Calcium (8.5-10.1) mg/dl Magnesium (1.8-2.4) mg/dl Total Bilirubin (0.2-1) mg/dl AST (15-37) U/L ALT (12-78) U/L Alkaline Phosphatase (45-117) U/L Troponin I (0-0.045) ng/ml Total Protein (6.4-8.2) gm/dl Albumin (3.4-5.0) gm/dl Globulin (2.5-4.0) gm/dl Albumin/Globulin Ratio (0.9-2) TSH (0.300-4.500) uIu/ml Urine Color Dark Yellow Urine Appearance Clear (Clear) Urine pH 5.0 (4.5-7.5) Ur Specific [place] 1.025 (1.000-1.030) Urine Protein 1+ H (Negative) Urine Glucose (UA) Negative (Negative) Urine Ketones Trace H (Negative) Urine Blood Negative (Negative) Urine Nitrite Negative (Negative) Urine Bilirubin Negative (Negative) Urine Urobilinogen Negative (Negative) Ur Leukocyte Esterase Negative (Negative) Urine WBC (Auto) 1-5 (0-5) /hpf Urine RBC (Auto) 0-4 (0-4) /hpf U Hyaline Cast (Auto) 10-30 H (0-5) /lpf U Epithel Cells (Auto) 10-20 H (0-5) /lpf Urine Bacteria (Auto) Negative (Negative) Urine Yeast Not Reportable Urine Sodium 27 mmol/L Urine Potassium 87.9 mmol/L Urine Chloride 105 mmol/L 05/27/19 05/27/19 05/27/19 Range/Units 18:01 14:35 14:35 WBC (4.8-10.8) K/uL RBC (4.7-6.1) M/uL Hgb (14.0-18.0) g/dL Hct (42-52) % MCV (80-100) fL MCH (25-34) pg MCHC (32-36) g/dL RDW Std Deviation (36.4-46.3) fL RDW Coeff of Alexa (11.5-14.5) % Plt Count (130-400) K/uL MPV (7.4-10.4) fL Immature Gran % (Auto) % Neut % (Auto) % Lymph % (Auto) % Swisher % (Auto) % Eos % (Auto) % Baso % (Auto) % Immature Gran # (Auto) (0.00-0.02) K/uL Neut # (Auto) (1.4-6.5) K/uL Lymph # (Auto) (1.2-3.4) K/uL Swisher # (Auto) (0.11-0.59) K/uL Eos # (Auto) (0-0.5) K/uL Baso # (Auto) (0-0.2) K/uL PT 10.7 (9.0-12.0) Seconds INR 1.0 (0.9-1.1) APTT 23.5 (21.0-31.0) Seconds PTT Ratio 0.9 Sodium 137 (136-145) mmol/L Potassium 4.3 (3.5-5.1) mmol/L Chloride 104 (98-107) mmol/L Carbon Dioxide 22 (21-32) mmol/L Anion Gap 11.0 (3-11) BUN 45 H (7-18) mg/dl Creatinine 2.35 H (0.6-1.4) mg/dl Est Cr Clr Drug Dosing 28.9 ml/min Est GFR ( Amer) 29.0 Est GFR (Non-Af Amer) 25.0 BUN/Creatinine Ratio 19.2 (10-20) Glucose 201 H (70-99) mg/dl POC Glucose 137 H (70-99) Calcium 9.5 (8.5-10.1) mg/dl Magnesium 1.8 (1.8-2.4) mg/dl Total Bilirubin 0.6 (0.2-1) mg/dl AST 13 L (15-37) U/L ALT 27 (12-78) U/L Alkaline Phosphatase 68 (45-117) U/L Troponin I 0.314 H* (0-0.045) ng/ml Total Protein 7.6 (6.4-8.2) gm/dl Albumin 4.1 (3.4-5.0) gm/dl Globulin 3.5 (2.5-4.0) gm/dl Albumin/Globulin Ratio 1.2 (0.9-2) TSH 3.430 (0.300-4.500) uIu/ml Urine Color Urine Appearance (Clear) Urine pH (4.5-7.5) Ur Specific [place] (1.000-1.030) Urine Protein (Negative) Urine Glucose (UA) (Negative) Urine Ketones (Negative) Urine Blood (Negative) Urine Nitrite (Negative) Urine Bilirubin (Negative) Urine Urobilinogen (Negative) Ur Leukocyte Esterase (Negative) Urine WBC (Auto) (0-5) /hpf Urine RBC (Auto) (0-4) /hpf U Hyaline Cast (Auto) (0-5) /lpf U Epithel Cells (Auto) (0-5) /lpf Urine Bacteria (Auto) (Negative) Urine Yeast Urine Sodium mmol/L Urine Potassium mmol/L Urine Chloride mmol/L 05/27/19 Range/Units 14:35 WBC 14.91 H (4.8-10.8) K/uL RBC 4.45 L (4.7-6.1) M/uL Hgb 13.3 L (14.0-18.0) g/dL Hct 38.9 L (42-52) % MCV 87.4 (80-100) fL MCH 29.9 (25-34) pg MCHC 34.2 (32-36) g/dL RDW Std Deviation 43.6 (36.4-46.3) fL RDW Coeff of Alexa 13.5 (11.5-14.5) % Plt Count 233 (130-400) K/uL MPV 10.7 H (7.4-10.4) fL Immature Gran % (Auto) 0.3 % Neut % (Auto) 75.9 % Lymph % (Auto) 16.8 % Swisher % (Auto) 6.4 % Eos % (Auto) 0.5 % Baso % (Auto) 0.1 % Immature Gran # (Auto) 0.05 H (0.00-0.02) K/uL Neut # (Auto) 11.29 H (1.4-6.5) K/uL Lymph # (Auto) 2.51 (1.2-3.4) K/uL Swisher # (Auto) 0.96 H (0.11-0.59) K/uL Eos # (Auto) 0.08 (0-0.5) K/uL Baso # (Auto) 0.02 (0-0.2) K/uL PT (9.0-12.0) Seconds INR (0.9-1.1) APTT (21.0-31.0) Seconds PTT Ratio Sodium (136-145) mmol/L Potassium (3.5-5.1) mmol/L Chloride (98-107) mmol/L Carbon Dioxide (21-32) mmol/L Anion Gap (3-11) BUN (7-18) mg/dl Creatinine (0.6-1.4) mg/dl Est Cr Clr Drug Dosing ml/min Est GFR ( Amer) Est GFR (Non-Af Amer) BUN/Creatinine Ratio (10-20) Glucose (70-99) mg/dl POC Glucose (70-99) Calcium (8.5-10.1) mg/dl Magnesium (1.8-2.4) mg/dl Total Bilirubin (0.2-1) mg/dl AST (15-37) U/L ALT (12-78) U/L Alkaline Phosphatase (45-117) U/L Troponin I (0-0.045) ng/ml Total Protein (6.4-8.2) gm/dl Albumin (3.4-5.0) gm/dl Globulin (2.5-4.0) gm/dl Albumin/Globulin Ratio (0.9-2) TSH (0.300-4.500) uIu/ml Urine Color Urine Appearance (Clear) Urine pH (4.5-7.5) Ur Specific [place] (1.000-1.030) Urine Protein (Negative) Urine Glucose (UA) (Negative) Urine Ketones (Negative) Urine Blood (Negative) Urine Nitrite (Negative) Urine Bilirubin (Negative) Urine Urobilinogen (Negative) Ur Leukocyte Esterase (Negative) Urine WBC (Auto) (0-5) /hpf Urine RBC (Auto) (0-4) /hpf U Hyaline Cast (Auto) (0-5) /lpf U Epithel Cells (Auto) (0-5) /lpf Urine Bacteria (Auto) (Negative) Urine Yeast Urine Sodium mmol/L Urine Potassium mmol/L Urine Chloride mmol/L Diagnostic Findings 2D echo report reviewed, completed earlier today: Compared to prior study, there is no significant change. Normal LV chamber size with mild concentric LVH. Normal LV systolic function with ejection fraction 55 to 60%. No segmental left ventricular wall motion abnormalities are noted. Grade 2 diastolic dysfunction. Aortic valve sclerosis moderate without significant aortic valvular stenosis. Moderate mitral annular calcification. Moderate mitral regurgitation. No mitral valve stenosis. Telemetry reviewed: NSR with PVC's. No recurrent paroxysmal SVT or tachyarrhythmias. Repeat EKG post Valsalva maneuver NSR with PVCs EKG on arrival to ER, reviewed: SVT at 159 bpm EKG at cardiology office visit reviewed: SVT at 156 bpm, vs atrial flutter 2:[address]/T wave abnormality September 03, 2017 [facility] Interpretation Summary (as per Dr. Nino): The stress echo is negative for inducible ischemia. Resting Study: The qualitative LV ejection fraction is 55-59% (normal). The LV wall thickness is mildly increased (concentric). The left ventricular diastolic function is mildly abnormal (grade I). Moderate aortic valve sclerosis is present. Mild mitral regurgitation is present. Trace tricuspid regurgitation. There is no evidence of pulmonary hypertension. The aortic root is mildly enlarged. Compared to prior study of 06/19/2016, there is no significant change. Medications Administered Current Inpatient Medications Acetaminophen (Tylenol) 650 mg PO Q4H PRN PRN Reason: Pain or Fever Stop: 06/26/19 17:54 Amlodipine Besylate (Norvasc) 2.5 mg PO DAILY ZACH Stop: 06/27/19 08:59 Last Admin: 05/28/19 07:45 Dose: 2.5 mg Documented by: Aspirin (Ecotrin Ectab) 81 mg PO DAILY ZACH Stop: 06/27/19 08:59 Last Admin: 05/28/19 07:46 Dose: 81 mg Documented by: Atorvastatin Calcium (Lipitor) 40 mg PO DAILY ZACH Stop: 06/27/19 08:59 Last Admin: 05/28/19 07:46 Dose: 40 mg Documented by: Fish Oil ([place]-3 (Purified Fish Oil)) 1 gm PO BID ZACH Stop: 06/26/19 20:59 Last Admin: 05/28/19 07:47 Dose: 1 gm Documented by: Glimepiride (Amaryl) 4 mg PO BIDM ZACH Stop: 06/27/19 07:59 Last Admin: 05/28/19 07:45 Dose: 4 mg Documented by: Sodium Chloride (Nss 1000ml) 1,000 mls @ 100 mls/hr IV .Q10H ZACH Stop: 06/26/19 17:54 Last Admin: 05/28/19 05:32 Dose: 100 mls/hr Documented by: Insulin Aspart (Novolog Flexpen) 0 units SC ACHS ZACH Stop: 06/26/19 18:14 Last Admin: 05/28/19 07:44 Dose: 1 units Documented by: Insulin Glargine (Lantus Solostar Pen) 10 units SQ HS ZACH Stop: 06/27/19 20:59 Isosorbide Mononitrate (Imdur Extended Rel) 30 mg PO DAILY ZACH Stop: 06/27/19 08:59 Last Admin: 05/28/19 07:46 Dose: 30 mg Documented by: Magnesium Oxide (Mag-Ox) 400 mg PO DAILY ZACH Stop: 06/27/19 08:59 Last Admin: 05/28/19 07:46 Dose: 400 mg Documented by: Metoprolol Tartrate (Lopressor) 50 mg PO BID ZACH Stop: 06/26/19 20:59 Last Admin: 05/28/19 07:46 Dose: 50 mg Documented by: Pantoprazole Sodium (Protonix) 40 mg PO DAILY ZACH Stop: 06/27/19 08:59 Last Admin: 05/28/19 07:46 Dose: 40 mg Documented by: Potassium Chloride (Klor-Con M10) 10 meq PO BID ZACH Stop: 06/26/19 20:59 Last Admin: 05/28/19 07:47 Dose: 10 meq Documented by: Terazosin HCl (Hytrin) 5 mg PO DAILY [facility] Stop: 06/27/19 08:59 Last Admin: 05/28/19 07:46 Dose: 5 mg Documented by:
--- NOTE | 2019-05-28 10:37 | Hospitalist Progress Note ---
Date of Service May 28, 2019 Assessment & Plan (1) SVT (supraventricular tachycardia): Appreciate cardiology recommendations Continue monitoring blood pressure SVT (supraventricular tachycardia): paroxysmal SVT converting to NSR with Valsalva maneuver in ER. No recurrence, most likely due to dehydration and acute kidney Continue metoprolol 50 mg BID home dose and titrate up as needed Plan for outpatient ZIO monitor on discharge to evaluate for recurrent arrhythmia. Elevated troponin:Likely demand ischemia in setting of tachycardia and PAUL He has no symptoms to suggest ACS. Echo with preserved LV systolic function, no wall motion abnormalities. (2) Elevated troponin: Elevated troponin: Likely demand ischemia in setting of tachycardia and PAUL He has no symptoms to suggest ACS. Echo with preserved LV systolic function, no wall motion abnormalities. (3) PAUL (acute kidney injury): Slowly improving hold metformin. Hold losartan and HCTZ. Continue gentle IV fluids. (4) 2-vessel coronary artery disease: (5) Benign essential hypertension: Continue home medication-amlodipine 2.5 mg daily, aspirin 81 mg daily. Hold losartan HCTZ for now while patient is an acute kidney injury. (6) Hypercholesterolemia: Lipid panel pending, continue atorvastatin 40 mg daily. (7) Diabetes mellitus with neurological manifestation: Add Sliding-scale insulin. Continue home insulin. Glycemic control per pharmacy. Subjective Patient seen and examined at the bedside. Denies chest pain at this time. Patient is afebrile. Good p.o. intake. Patient denies fever chills abdominal pain shortness of breath frequency urgency hemoptysis hematemesis hematemesis hematuria and dysuria. Review of Systems Review of Systems: All systems reviewed & are unremarkable except as noted in HPI & below Physical Exam Constitutional: WD/WN, vitals as above well developed Eyes: PERRL, conjunctivae normal, anicteric sclerae ENMT: external ear and nose normal, oropharynx normal Neck: trachea midline, no thyromegaly Respiratory: normal respiratory effort, lungs clear to auscultation Cardiovascular: Rate/Rhythm: + irregularly irregular Gastrointestinal (Abdomen): normal bowel sounds, soft, nontender, no hepatosplenomegaly Musculoskeletal: no cyanosis or clubbing, extremities motor strength 5/5 Skin: no rashes, warm and dry Neurologic: patellar DTR's 2+ bilat, sensation intact Psychiatric: A+Ox3, euthymic affect Lymphatic: no cervical or axillary lymphadenopathy Results & Data Vital Signs (Past 12 Hours) Vital Signs Temp Pulse Pulse Resp BP Pulse Ox 05/28/19 09:25 138/76 05/28/19 07:31 36.5 C 55 L 16 171/82 H 92 05/28/19 04:15 36.7 C 55 L 19 168/88 H 93 05/28/19 01:22 36.7 C 71 19 130/77 94 05/28/19 00:00 67 PG Care Time/CCT Total # of Minutes Spent Total Time Spent with Patient: Total time spent is greater than 50% in coordination of care (as documented) at patient's floor/unit and/or counseling patient:
[2019-05-28] MEDS ORDERED: GLUCAGON FOR INJ 1 MG VIAL SQ PRN (13:29)
[2019-05-28] MEDS ORDERED: GLUCOSE 40% GEL 15 GM TUBE PO PRN (13:29)
[2019-05-28] MEDS ORDERED: DEXTROSE 50% 50 ML SYRINGE IV PRN (13:29)
[2019-05-28] MEDS ORDERED: GLUCOSE 10 TABS/TUBE PO PRN (13:29)
[2019-05-28] MEDS ORDERED: CARBOHYDRATES FOR HYPOGLYCEMIA PO PRN (13:29)
[2019-05-28] MEDS ORDERED: PHARMACY GLYCEMIC MGMT CONSULT PRN (13:32)
--- NOTE | 2019-05-28 14:25 | Pharmacy Report ---
Glycemic Control Consultation - Date of Service May 28, 2019 - Scope Scope: Glycemic Pharmacist consulted by Dr Moreno on 05/28 for glycemic control and to write orders per [facility] inpatient glycemic control protocol - Objective Weight: 94.5 kg [place] BSG (last 24hrs): 05/27/19 05/27/19 05/27/19 14:35 18:01 20:31 Glucose 201 H POC Glucose 137 H 172 H 05/28/19 05/28/19 05/28/19 07:17 07:42 11:36 Glucose 59 L POC Glucose 76 138 H Laboratory Data (last 24hrs): 05/27/19 05/28/19 14:35 07:17 Potassium 4.3 3.9 Carbon Dioxide 22 27 Anion Gap 11.0 6.0 Creatinine 2.35 H 1.79 H D Est Cr Clr Drug Dosing 28.9 38.0 - Recent Pertinent Medications Outpatient Anti-diabetic Regimen: * Metformin 83423 mg BID, glimeperide 4 mg BID * A1c = 8.4 % 04/28/19 The patient is currently receiving: * Basal insulin: Lantus 10 units every 24 hours * Correctional Insulin: Novolog Correction per scale ACHS Goal Range: Low 110 mg/dL - High 140 mg/dL Correction Factor: 35 mg/dL/unit * Prandial insulin: Per carb ratio of 1 unit per 11 grams CHO consumed Risk Factors for Insulin Resistance: * Steroids: * Infection: * Pressors: * IVF: * Recent Surgery * Diet: T2DM * Mechanical Ventilation: - Assessment & Plan Assessment & Plan: ASSESSMENT: * Mr. Conde is admitted for cardiac assessment/SVT/elevated troponins * BSG on admission elevated in 200s but has been below or within goal range today * Per medication history patient on glimeperide,metformin, toujeo outpatient- attempting to confirm toujeo * Patient received 8 units of lantus last evening (reduction for first dose), fasting this morning 76, will set scale with reduced dose tonight * Patient was started on bolus insulin between weight based stress of 1 and 2- will continue this dosing for now * Patient's home glimeperide was continued on admission, patient did receive dose this morning- will hold for now * Will evaluate possible regimen changes for renal function PLAN FOR INPATIENT GLYCEMIC CONTROL: * Holding outpatient oral diabetes medications * Basal insulin * Lantus 6/8 units hs * Bolus insulin * NovoLog per scale ACHS or Q6hrs while NPO * Goal Range: Low 110 mg/dL - High 140 mg/dL * Correction Factor: 35 mg/dL/unit * Nutritional / Prandial insulin per carb ratio of 1 unit per 11 grams CHO consumed * Please note that the plan above was derived based on current level of insulin resistance and hospital stress. These recommendations are appropriate for inpatient admission only. Plan of care upon discharge will need to be reassessed to avoid potential outpatient hypo/hyperglycemia. Thank you.
[2019-05-28] MEDS ORDERED: INSULIN GLARGINE SOLOSTAR 100 UNITS/ML 3 ML PEN SQ SCH ×3 (21:00)
[2019-05-29 00:14] VITALS: O2SAT 95
[2019-05-29 04:19] VITALS: TEMP 98.2
[2019-05-29] MEDS: INSULIN ASPART 100 UNITS/ML 3 ML PEN SC SCH ×2 (08:35→12:50)
[2019-05-29] MEDS: ASPIRIN 81 MG ECTAB PO SCH (08:38)
[2019-05-29] MEDS: TERAZOSIN HCL 5 MG CAP PO SCH (08:39)
[2019-05-29] MEDS: ISOSORBIDE MONO EXTENDED REL 30 MG TABCR PO SCH (08:40)
[2019-05-29] MEDS: ATORVASTATIN 40 MG TAB PO SCH (08:41)
[2019-05-29] MEDS: POTASSIUM CHLORIDE 10 MEQ TABCR PO SCH (08:41)
[2019-05-29] MEDS: METOPROLOL TARTRATE 50 MG TAB PO SCH (08:42)
[2019-05-29] MEDS: MAGNESIUM OXIDE 400 MG TAB PO SCH (08:42)
[2019-05-29] MEDS: AMLODIPINE BESYLATE 5 MG TAB PO SCH (08:43)
[2019-05-29] MEDS: OMEGA-3 (PURIFIED FISH OIL) 1 GM CAP PO SCH (08:48)
--- NOTE | 2019-05-29 09:10 | Cardiology Progress Note ---
Date of Service May 29, 2019 Assessment & Plan (1) SVT (supraventricular tachycardia): Paroxysmal SVT converting to NSR with Valsalva maneuver in ER. No recurrence on telemetry. Likely in setting of dehydration, PAUL Continue metoprolol 50 mg BID for now, home dose. Plan for outpatient ZIO monitor on discharge to evaluate for recurrent arrhythmia. Cardiology office will contact patient. (2) Elevated troponin: Likely demand ischemia in setting of tachycardia and PAUL He has no symptoms to suggest ACS. Echo with preserved LV systolic function, no wall motion abnormalities. (3) PAUL (acute kidney injury): BMP pending. Likely resume home dose losartan/hctz on discharge (4) Hypertension: continue current home medications for now. Monitor. likely resume losartan/hctz on discharge Stable cardiac symptoms. BMP currently pending. Anticipate discharge today. Cardiology office will contact patient to arrange placement of 7 day ZIO monitor. Case discussed in detail with Dr. Carmona Supervising Physician Co-Signing Physician Notes Patient seen and examined with Vikki Blackman PA-C. Agree with findings and assessment as above. Pt presents after being found to be in asymptomatic SVT with RVR. Broken with vagal maneuvers. Has remained in sinus since admission. Ok to d/c to home, will arrange for 1 week Zio patch monitor as outpatient. General: Awake, alert and oriented x 3. No acute distress. HEENT: Normocephalic, atraumatic. Pupils equal, round and reactive to light and accommodation. Extraocular muscles are intact. Anicteric sclera. Moist mucous membranes. Neck: No JVD. No bruit. Cardiovascular: Regular. Positive S-4. Normal S-1 and S-2. No S-3. 3/6 mid to late systolic ejection murmur, greatest at the right sternal border, second intercostal space with radiation to the bilateral carotids. No rubs. Pulmonary: Clear to auscultation bilaterally. No rales, rhonchi, or wheezing. Abdomen: Bowel sounds x 4, soft. No rebound, guarding or tenderness. No organomegaly. Extremities: No clubbing, cyanosis or edema. +2 pedal pulses bilaterally. Skin: Warm and dry. Subjective Patient feeling well this morning. Offers no acute cardiac complaints.Denies recent chest pain or unusual shortness of breath. No sense of palpitations or tachypalpitations. No dizziness, syncope or near syncope. No nausea or vomiting. Review of Systems Review of Systems: All systems reviewed & are unremarkable except as noted in HPI & below Physical Exam Constitutional: WD/WN, vitals as above well nourished; no acute distress Respiratory: normal respiratory effort, lungs clear to auscultation Cardiovascular: RRR, no murmur, no edema Gastrointestinal (Abdomen): normal bowel sounds, soft, nontender, no hepatosplenomegaly Musculoskeletal: no cyanosis or clubbing, extremities motor strength 5/5 Neurologic: PERRL, EOMI, accommodation nl, no face palsy, no dysarthria Results & Data Vital Signs (Past 12 Hours) Vital Signs Temp Pulse Pulse Resp BP Pulse Ox 05/29/19 04:16 36.8 C 65 20 135/72 95 05/29/19 01:59 66 05/29/19 00:09 36.9 C 62 19 142/84 H 95 Laboratory Results 05/29/19 05/29/19 05/28/19 Range/Units 08:42 07:50 20:25 Sodium Pending Potassium Pending Chloride Pending Carbon Dioxide Pending Anion Gap Pending BUN Pending Creatinine Pending Est Cr Clr Drug Dosing Pending Est GFR ( Amer) Pending Est GFR (Non-Af Amer) Pending BUN/Creatinine Ratio Pending Glucose Pending POC Glucose 100 H 209 H (70-99) Calcium Pending Troponin I (0-0.045) ng/ml 05/28/19 05/28/19 05/28/19 Range/Units 19:38 17:18 11:36 Sodium Potassium Chloride Carbon Dioxide Anion Gap BUN Creatinine Est Cr Clr Drug Dosing Est GFR ( Amer) Est GFR (Non-Af Amer) BUN/Creatinine Ratio Glucose POC Glucose 255 H 138 H (70-99) Calcium Troponin I 0.211 H* (0-0.045) ng/ml Diagnostic Findings Telemetry reviewed: NSR with PVC's. No recurrent SVT. Medications Administered Current Inpatient Medications Acetaminophen (Tylenol) 650 mg PO Q4H PRN PRN Reason: Pain or Fever Stop: 06/26/19 17:54 Amlodipine Besylate (Norvasc) 2.5 mg PO DAILY ZACH Stop: 06/27/19 08:59 Last Admin: 05/29/19 08:43 Dose: 2.5 mg Documented by: Aspirin (Ecotrin Ectab) 81 mg PO DAILY ZACH Stop: 06/27/19 08:59 Last Admin: 05/29/19 08:38 Dose: 81 mg Documented by: Atorvastatin Calcium (Lipitor) 40 mg PO DAILY ZACH Stop: 06/27/19 08:59 Last Admin: 05/29/19 08:41 Dose: 40 mg Documented by: Dextrose (Dextrose 50%) 25 - 50 ml IV UD PRN; Protocol PRN Reason: Hypoglycemia Protocol Stop: 06/27/19 13:28 Fish Oil (Victoria-3 (Purified Fish Oil)) 1 gm PO BID ZACH Stop: 06/26/19 20:59 Last Admin: 05/29/19 08:48 Dose: 1 gm Documented by: Glucagon (Glucagen) 1 mg SQ UD PRN; Protocol PRN Reason: Hypoglycemia Protocol Stop: 06/27/19 13:28 Glucose (Glucose 40%) 15 - 30 gm PO UD PRN; Protocol PRN Reason: Hypoglycemia Protocol Stop: 06/27/19 13:28 Glucose (Dex4 Glucose) 4 - 8 tabs PO UD PRN; Protocol PRN Reason: Hypoglycemia Protocol Stop: 06/27/19 13:28 Sodium Chloride (Nss 1000ml) 1,000 mls @ 100 mls/hr IV .Q10H [facility] Stop: 06/26/19 17:54 Last Infusion: 05/29/19 01:13 Dose: 0 mls/hr Documented by: Insulin Aspart (Novolog Flexpen) 0 units SC ACHS [facility] Stop: 06/26/19 18:14 Last Admin: 05/29/19 08:35 Dose: 3 units Documented by: Insulin Glargine (Lantus Solostar Pen) 0 units SQ HS [facility]; Protocol Stop: 06/27/19 20:59 Last Admin: 05/28/19 21:07 Dose: 8 units Documented by: Isosorbide Mononitrate (Imdur Extended Rel) 30 mg PO DAILY [facility] Stop: 06/27/19 08:59 Last Admin: 05/29/19 08:40 Dose: 30 mg Documented by: Magnesium Oxide (Mag-Ox) 400 mg PO DAILY [facility] Stop: 06/27/19 08:59 Last Admin: 05/29/19 08:42 Dose: 400 mg Documented by: Metoprolol Tartrate (Lopressor) 50 mg PO BID [facility] Stop: 06/26/19 20:59 Last Admin: 05/29/19 08:42 Dose: 50 mg Documented by: Miscellaneous (Carbohydrates For Hypoglycemia) 15 - 30 gm PO UD PRN PRN Reason: Hypoglycemia Treatment Stop: 06/27/19 13:28 Miscellaneous Information (Consult Glycemic Management Pharmacy) 1 ea N/A UD PRN; Protocol PRN Reason: Consult Stop: 06/27/19 13:31 Potassium Chloride (Klor-Con M10) 10 meq PO BID [facility] Stop: 06/26/19 20:59 Last Admin: 05/29/19 08:41 Dose: 10 meq Documented by: Terazosin HCl (Hytrin) 5 mg PO DAILY [facility] Stop: 06/27/19 08:59 Last Admin: 05/29/19 08:39 Dose: 5 mg Documented by:
[2019-05-29 09:36] LABS: Calcium 8.7 mg/dl (8.5-10.1); Creatinine Clr Calc Pharmacy 40.6 ml/min; Est GFR (African American) 43.8; Est GFR (Non-African American) 37.8; Potassium 4.1 mmol/L (3.5-5.1)
[2019-05-29 12:18] VITALS: BP 121/71; PULSE 68
[2019-05-29 12:47] LABS: Basophils # (auto) 0.02 K/uL (0-0.2); Basophils % (auto) 0.2 %; Eosinophils # (auto) 0.18 K/uL (0-0.5); Eosinophils % (auto) 2.2 %; Hematocrit (blood only) 34.6 % (42-52); Hemoglobin 11.6 g/dL (14.0-18.0); Immature Granulocytes # (auto) 0.03 K/uL (0.00-0.02); Immature Granulocytes % (auto) 0.4 %; Lymphocytes # (auto) 1.45 K/uL (1.2-3.4); Lymphocytes % (auto) 17.4 %; Mean Corpuscular Hemoglobin 29.4 pg (25-34); Mean Corpuscular Volume 87.6 fL (80-100); Mean Platelet Volume 10.7 fL (7.4-10.4); Monocytes # (auto) 0.87 K/uL (0.11-0.59); Monocytes % (auto) 10.4 %; Neutrophils % (auto) 69.4 %; Platelet Count 212 K/uL (130-400); RDW Coefficient of Variation 13.6 % (11.5-14.5); RDW Standard Deviation 43.8 fL (36.4-46.3); Red Blood Count 3.95 M/uL (4.7-6.1); White Blood Count 8.35 K/uL (4.8-10.8)
[2019-05-29 13:10] LABS: Albumin Globulin Ratio 1.1 (0.9-2); Albumin Level 3.5 gm/dl (3.4-5.0); BUN Creatinine Ratio 20.2 (10-20); Bilirubin,Total 0.5 mg/dl (0.2-1); Calcium 8.6 mg/dl (8.5-10.1); Est GFR (African American) 41.7; Globulin 3.3 gm/dl (2.5-4.0); Potassium 4.5 mmol/L (3.5-5.1); Total Protein 6.8 gm/dl (6.4-8.2)
[2019-05-29 13:18] LABS: Mean Corpuscular Hgb Conc 33.5 g/dL (32-36)
--- NOTE | 2019-05-29 13:35 | Pharmacy Report ---
Pharmacy Glycemic Short Note 2 - Date of Service May 29, 2019 - Glycemic Short BSG Results (Last 24 hours): 05/28/19 05/28/19 05/29/19 17:18 20:25 07:50 Glucose POC Glucose 255 H 209 H 100 H 05/29/19 05/29/19 05/29/19 08:42 11:49 12:30 Glucose 202 H 249 H POC Glucose 268 H OUTPATIENT ANTIDIABETIC REGIMEN: * Metformin 27242 mg BID, glimeperide 4 mg BID * A1c = 8.4 % 04/28/19 ASSESSMENT: * 79yo T2DM male with near adequate outpatient control- however, change in renal function warrants regimen change- see discharge recs below * Currently- oral antidiabetic agents on hold and utilizing SQ basal bolus insulin regimen * patient has received 19 units of insulin over the past 24hrs * 8 units of basal insulin * 11 units of prandial/correctional insulin * AM fasting BSG in goal range at 100 mg/dl --> may even be too low based on age/co-morbidities * Post-prandial BSGs elevated --> will tighten CR PLAN FOR INPATIENT GLYCEMIC CONTROL: * Hold outpatient oral diabetes medications * Basal insulin: decrease dose slightly * Lantus 6-8 units SQ HS - dose based on BSG * BSG below 120 mg/dl --> 6 units * BSG 120 mg/dl or above --> 8 units * Bolus insulin: tighten CR * NovoLog per scale ACHS or Q6hrs while NPO * Goal Range: Low 110 mg/dL - High 140 mg/dL * Correction Factor: 35 mg/dL/unit * Nutritional / Prandial insulin per carb ratio of 1 unit per 11 grams CHO consumed PLAN FOR DISCHARGE: * A1c = 8.4 % on 04/28/19 * Goal A1c = 8 % based on age and comorbidities- however it is noted that PCP wa nts A1c <7.5% * Less stringent A1C goals (such as less than 8%) may be appropriate for patients with a history of severe hypoglycemia, limited life expectancy, advanced microvascular or macrovascular complications, extensive comorbid conditions, or long-standing diabetes in whom the goal is difficult to achieve despite diabetes self-management education, appropriate glucose monitoring, and effective doses of multiple glucose-lowering agents including insulin. * Based on hypo on admission and PAUL recommend stopping glipizide at pr. Metformin may be continued until eGFR ~ 30 ml/min since it was initiated when eGFR > 45ml/min and patient is tolerating well. Will leave this up to PCP * If Metformin + Glipizide are not continued at the time of discharge below are possible regimens * Insulin. May consider basal insulin + prandial insulin at a total daily dose of ~ 25 units/day. May consider * Lantus 8 units SQ HS + NovoLog 5-6 units SQ TIDM * Premixed insulin Novolin 70/30 insulin ~ 15 units in the morning + 10 units in the evening with meals. Premixed insulin is inexpensive and minimal number of injects (4-5 with Lantus + Novolog vs only 2 with premixed) * May consider the Sodium-Glucose Co-Transporter 2 (SGLT2) Inhibitor, Invokana [canagliflozin] 100mg PO daily {max} if eGRD persistently > 45ml/min * May consider TZD [Pioglitazone (Actos)] since no dosage adjustment is nece ssary with renal impairment, however, TZDs are not effective in long- standing diabetes * May consider DPP-IV [Sitagliptin (Januvia)] but would not be able to exceed 50mg PO daily if CrCL < 50 ml/min. Again, DPP-IV not effective in long standing diabetes * GLP-1 would be another consideration (Bydureon, Byetta, Saxenda, Tanzeum, Trulicity, Victoza, etc). No renal dosage adjustment is necessary. However, these medications are expensive and are injectables. If patient is willing to do injections, recommend SQ basal bolus insulin regimen vs SQ basal insulin + GLP-1. Preferred agents
--- NOTE | 2019-05-29 13:52 | Hospitalist Progress Note ---
Date of Service May 29, 2019 Assessment & Plan (1) SVT (supraventricular tachycardia): Appreciate cardiology recommendations Continue monitoring blood pressure SVT (supraventricular tachycardia): paroxysmal SVT converting to NSR with Valsalva maneuver in ER. No recurrence, most likely due to dehydration and acute kidney Continue metoprolol 50 mg BID home dose and titrate up as needed Plan for outpatient ZIO monitor on discharge to evaluate for recurrent arrhythmia. Elevated troponin:Likely demand ischemia in setting of tachycardia and PAUL He has no symptoms to suggest ACS. Echo with preserved LV systolic function, no wall motion abnormalities. (2) Elevated troponin: Elevated troponin: Likely demand ischemia in setting of tachycardia and PAUL He has no symptoms to suggest ACS. Echo with preserved LV systolic function, no wall motion abnormalities. (3) PAUL (acute kidney injury): Slowly improving. Creatinine 1.74 today which is above patient baseline. Will discontinue metformin and glimepiride and continue only with insulin glargine home dose. We will also hold losartan/hydrochlorothiazide due to possible nephrotoxicity. Instead we will increase the dose of amlodipine to 5 mg p.o. daily. This dose needs to be titrated up as per patient PCP once when patient is discharged home. At the present time patient blood pressure is normal on average upper limit is 135/80. Patient understands that once at home he needs to drink 2 L of fluid daily. He needs to follow-up with his primary care physician within a 7 days and recheck his kidney function. If kidney function not improved by that time would recommend referral to market development executive. (4) 2-vessel coronary artery disease: Stable, continue metoprolol heart rate 50 mg p.o. twice daily and potassium chloride 10 mEq p.o. twice daily Present on Admission?: Yes (5) Benign essential hypertension: Keep hydrochlorothiazide losartan on hold due to impaired renal function. For better blood pressure control will increase amlodipine from 2.5 mg to 5 mg daily. Patient will have follow-up with PCP within 7 days keep blood pressure elevated amlodipine should be titrated to higher dose to keep blood pressure under control. At this time patient blood pressure is normal and an average 120/80 with upper limit 135/80. Continue aspirin 81 mg daily. (6) Hypercholesterolemia: Continue atorvastatin 40 mg daily. (7) Diabetes mellitus with neurological manifestation: Add Sliding-scale insulin. Continue home insulin. Glycemic control per pharmacy. Subjective Patient is seen and examined at the bedside his . Patient is eager to go home. We discussed patient current treatment options including stopping metformin, glyburide, and pantoprazole due to possible adverse side effects to patient kidneys. Patient understands that he supposed to follow-up with his primary care physician within 1 week and recheck kidney function. Patient understands that he has to avoid all nephrotoxic agents and hydrate himself with 2 L of fluid daily. In regards of SVTs patient will have placed a ZIO Patch with cardiology and followed up with them.Denies recent chest pain or unusual shortness of breath. No sense of palpitations or tachypalpitations. No dizziness, syncope or near syncope. No nausea or vomiting. Review of Systems Review of Systems: All systems reviewed & are unremarkable except as noted in HPI & below Physical Exam Constitutional: WD/WN, vitals as above well developed Eyes: PERRL, conjunctivae normal, anicteric sclerae ENMT: external ear and nose normal, oropharynx normal Neck: trachea midline, no thyromegaly Respiratory: normal respiratory effort, lungs clear to auscultation Cardiovascular: Rate/Rhythm: + irregularly irregular Gastrointestinal (Abdomen): normal bowel sounds, soft, nontender, no hepatosplenomegaly Musculoskeletal: no cyanosis or clubbing, extremities motor strength 5/5 Skin: no rashes, warm and dry Neurologic: patellar DTR's 2+ bilat, sensation intact Psychiatric: A+Ox3, euthymic affect Lymphatic: no cervical or axillary lymphadenopathy Results & Data Vital Signs (Past 12 Hours) Vital Signs Temp Pulse Pulse Resp BP BP Pulse Ox 05/29/19 12:15 36.8 C 68 20 121/71 95 05/29/19 04:16 36.8 C 65 20 135/72 95 05/29/19 01:59 66 PG Care Time/CCT Total # of Minutes Spent Total Time Spent with Patient: Total time spent is greater than 50% in coordination of care (as documented) at patient's floor/unit and/or counseling patient:
--- NOTE | 2019-05-29 14:21 | Discharge Summary ---
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 There was question of atrial flutter versus SVT. Patient denies any chest pain or palpitations. No dizziness or lightheadedness. No syncope. Here in the ER , he was found to be having SVT and it resolved after Valsalva maneuver. Currently the patient is feeling better. He will be admitted for further evaluation and management. The blood labs show acute renal failure. He denies any nausea vomiting. No diarrhea. No shortness of breath. Principal Diagnosis none Discharge Exam Constitutional WD/WN, vitals as above well developed Eyes PERRL, conjunctivae normal, anicteric sclerae ENMT external ear and nose normal, oropharynx normal Hard of hearing Neck trachea midline, no thyromegaly Respiratory normal respiratory effort, lungs clear to auscultation Cardiovascular RRR, no murmur, no edema Gastrointestinal (Abdomen) normal bowel sounds, soft, nontender, no hepatosplenomegaly Musculoskeletal no cyanosis or clubbing, extremities motor strength 5/5 Skin no rashes, warm and dry Neurologic patellar DTR's 2+ bilat, sensation intact Psychiatric A+Ox3, euthymic affect Lymphatic no cervical or axillary lymphadenopathy Discharge Data Allergies Allergy/AdvReac Type Severity Reaction Status Date / Time No Known Drug Allergies Allergy Verified 05/07/19 13:04 Consultations 05/27/19 15:49 ED Decision to Admit Stat 05/27/19 17:55 Consult Cardiology Routine Hospital Course (1) SVT (supraventricular tachycardia): Appreciate cardiology recommendations Continue monitoring blood pressure SVT (supraventricular tachycardia): paroxysmal SVT converting to NSR with Valsalva maneuver in ER. No recurrence, most likely due to dehydration and acute kidney Continue metoprolol 50 mg BID home dose and titrate up as needed Plan for outpatient ZIO monitor on discharge to evaluate for recurrent arrhythmia. Elevated troponin:Likely demand ischemia in setting of tachycardia and PAUL He has no symptoms to suggest ACS. Echo with preserved LV systolic function, no wall motion abnormalities. (2) Elevated troponin: Elevated troponin: Likely demand ischemia in setting of tachycardia and PAUL He has no symptoms to suggest ACS. Echo with preserved LV systolic function, no wall motion abnormalities. (3) PAUL (acute kidney injury): Slowly improving. Creatinine 1.74 today which is above patient baseline. Will discontinue metformin and glimepiride and continue only with insulin glargine home dose. We will also hold losartan/hydrochlorothiazide due to possible nephrotoxicity. Instead we will increase the dose of amlodipine to 5 mg p.o. daily. This dose needs to be titrated up as per patient PCP once when patient is discharged home. At the present time patient blood pressure is normal on average upper limit is 135/80. Patient understands that once at home he needs to drink 2 L of fluid daily. He needs to follow-up with his primary care physician within a 7 days and recheck his kidney function. If kidney function not improved by that time would recommend referral to construction equipment mechanic helper. (4) 2-vessel coronary artery disease: Stable, continue metoprolol heart rate 50 mg p.o. twice daily and potassium chloride 10 mEq p.o. twice daily (5) Benign essential hypertension: Keep hydrochlorothiazide losartan on hold due to impaired renal function. For better blood pressure control will increase amlodipine from 2.5 mg to 5 mg daily. Patient will have follow-up with PCP within 7 days keep blood pressure elevated amlodipine should be titrated to higher dose to keep blood pressure under control. At this time patient blood pressure is normal and an average 120/80 with upper limit 135/80. Continue aspirin 81 mg daily. (6) Hypercholesterolemia: Continue atorvastatin 40 mg daily. (7) Diabetes mellitus with neurological manifestation: Add Sliding-scale insulin. Continue home insulin. Glycemic control per pharmacy. Total Time Total Time Spent Total Time Spent (In Minutes): over 30 min Discharge Plan Discharge Items Patient Disposition: Home - Self-Care Reason For Visit: ARRHYTHMIA Discharge Diagnosis: SVT, demand ischemia Activity: Resume your previous activity Lifting: Gradually increase as tolerated Non-emergency contact: Primary Care Provider Call non-emergency contact if: you have any medication questions, your symptoms worsen, your pain is not controlled, your pain is unusual for you, your pain is concerning for you and your rectal temperature is above 100.4 Follow-up/Referrals: Jb Bean MD [Primary Care Provider] - 06/04/19 1:30 pm (Please, follow up with Dr. Bean on SundayJune 04 at 1:30 pm. *You will also have labs (CBC, CMP) drawn, at this time. If you need to change this appointment, call the office at [phone].) Vikki Blackman PA-C [Physician [employer]al [employer]] - (Please, follow up at [facility] regarding the Zio Patch. *A nurse from this office will contact you with the appointment information. If you have any questions, call their office at [phone].) Diet: Carb Consistent or DM2 and Heart Healthy Addtl Attending Provider Instructions: We will stop your metformin and glimepiride for diabetic control due to impaired kidney function. Instead you will only continue with insulin glargine 10 units subcu nightly. We will also stop your losartan and hydrochlorothiazide because of impaired ki dney function and instead be well increase the dose of amlodipine to 5 mg daily. Please follow-up with your primary care physician within a 7 days and repeat kidney function. Please check your sugar 4 times a day and bring the log to your primary care physician. Your insulin does possibly will need to be upgraded depending on your glycemic control at home. Please check your blood pressure once a day and bring the log to your primary care physician. Your amlodipine will possibly need to be upgraded to higher dose if your blood pressure is not well controlled at home. We will stop Omeprazole since this can also adversely affect kidney. Cardiology will schedule appointment for you to place ZIO Patch electrode on your chest. You will need to follow-up with cardiology. Pending Studies at Discharge: No Stand-Alone Forms: My [facility] Medications and DC Order Prescriptions: New amlodipine [Norvasc] 5 mg Tablet 5 mg PO DAILY Qty: 30 RF: 0 Continued potassium chloride 10 mEq tablet extended release 10 meq PO BID Qty: 180 RF: 3 metoprolol tartrate 50 mg tablet 50 mg PO BID Qty: 180 RF: 3 terazosin 5 mg capsule 5 mg PO DAILY Qty: 90 RF: 3 aspirin 81 mg tablet 81 mg PO DAILY Qty: 1 RF: 0 atorvastatin 40 mg tablet 40 mg PO DAILY Qty: 90 RF: 3 Toudanay SoloStar U-300 Insulin 300 unit/mL (1.5 mL) insulin pen 10 units SQ HS Qty: 4.5 RF: 3 isosorbide mononitrate 30 mg tablet extended release 24 hr 30 mg PO DAILY Qty: 90 RF: 3 magnesium oxide 400 mg magnesium tablet 400 mg PO DAILY Qty: 90 RF: 3 omega-3 acid ethyl esters 1 gram capsule 1 cap PO BID Qty: 180 RF: 3 Discontinued amlodipine 5 mg tablet 2.5 mg PO DAILY Qty: 45 RF: 3 losartan-hydrochlorothiazide 50-12.5 mg tablet 1 tab PO DAILY Qty: 90 RF: 3 metformin 1,000 mg tablet 1,000 mg PO BID Qty: 180 RF: 3 omeprazole 20 mg capsule,delayed release(DR/EC) 20 mg PO DAILY Qty: 90 RF: 3 glimepiride 4 mg tablet 4 mg PO BID Qty: 180 RF: 3 Discharge Orders: Discharge Order (Routine); Ordered 05/29/19 Ordered By: Melly Carbajal/Other Patient Handouts: Insulin Glargine Solution for injection, Log Blood Sugar, Blood Sugar Check, Amlodipine Admission Data Admit Date/Time: 05/27/19 16:26 Attending Provider: Melly Moreno Admit Provider: Kuldip Stone Primary Care Provider: Jb Bean Other Providers: Kuldip Stone ; Ang Mandel
== END 2019-05-29 15:00 | disposition home or self-care (01) | DRG 309 ==
LOC: ED 14:19 → SUATTDRO 16:26 → 2E 16:26

== ENCOUNTER 2020-12-17 15:48 | Inpatient (IN) ==
[2020-12-17 16:25] LABS: Basophils # (auto) 0.04 K/uL (0-0.2); Basophils % (auto) 0.5 %; Eosinophils # (auto) 0.19 K/uL (0-0.5); Eosinophils % (auto) 2.5 %; Hematocrit (blood only) 38.1 % (42-52); Hemoglobin 12.7 g/dL (14.0-18.0); Immature Granulocytes # (auto) 0.02 K/uL (0.00-0.02); Immature Granulocytes % (auto) 0.3 %; Lymphocytes # (auto) 2.04 K/uL (1.2-3.4); Lymphocytes % (auto) 26.5 %; Mean Corpuscular Hemoglobin 29.7 pg (25-34); Mean Corpuscular Hgb Conc 33.3 g/dL (32-36); Mean Corpuscular Volume 89.2 fL (80-100); Mean Platelet Volume 10.5 fL (7.4-10.4); Monocytes % (auto) 9.1 %; Neutrophils # (auto) 4.72 K/uL (1.4-6.5); Neutrophils % (auto) 61.1 %; Platelet Count 244 K/uL (130-400); RDW Coefficient of Variation 13.4 % (11.5-14.5); RDW Standard Deviation 43.9 fL (36.4-46.3); Red Blood Count 4.27 M/uL (4.7-6.1); White Blood Count 7.71 K/uL (4.8-10.8)
--- NOTE | 2020-12-17 16:28 | XRay Report ---
XR chest 1V portable CLINICAL HISTORY: Chest Pain COMPARISON STUDY: Chest radiograph May 27, 2019. FINDINGS: Lung volumes are mildly diminished. There is no pneumothorax or pleural effusion. Minimal b ibasilar opacities are present. Note is made of cardiomegaly without evidence for pulmonary edema. IMPRESSION: 1. Low lung volumes with bibasilar opacities that favor atelectasis. 2. Cardiomegaly. No evidence for pulmonary edema. ACT 112: Negative or not required by law. Electronically signed by: Albino Kim M.D. 12/17/2020 4:27 PM
[2020-12-17] MEDS ORDERED: SODIUM CHLORIDE 0.9% 500 ML IV ONE (16:44)
[2020-12-17 16:49] LABS: Alanine Aminotransferase 58 U/L (12-78); Albumin Level 3.5 gm/dl (3.4-5.0); Aspartate Aminotransferase 37 U/L (15-37); Blood Urea Nitrogen 28 mg/dl (7-18); Calcium 9.4 mg/dl (8.5-10.1); Carbon Dioxide 28 mmol/L (21-32); Chloride 106 mmol/L (98-107); Creatinine Clr Calc Pharmacy 39.8 ml/min; Est GFR (African American) 44.1; Est GFR (Non-African American) 38.1; Glucose 203 mg/dl (70-99); Lipase 211 U/L (73-393); Potassium 3.9 mmol/L (3.5-5.1); Sodium 139 mmol/L (136-145)
[2020-12-17 16:53] LABS: Albumin Globulin Ratio 0.9 (0.9-2); Alkaline Phosphatase 84 U/L (45-117); Bilirubin,Total 0.5 mg/dl (0.2-1); Globulin 3.7 gm/dl (2.5-4.0); Total Protein 7.2 gm/dl (6.4-8.2); Troponin I < 0.015 ng/ml (0-0.045)
[2020-12-17 17:14] LABS: Magnesium 2.3 mg/dl (1.8-2.4); Phosphorus 3.6 mg/dl (2.5-4.9)
--- NOTE | 2020-12-17 17:39 | Emergency Department Note ---
Impression & Plan Hypertensive urgency, Substernal chest pain, Supratherapeutic INR, CKD (chronic kidney disease) ED Provider Note NAME: DEEPAK MILLER AGE: 80 SEX: M ARRIVES VIA: Ambulance INFORMANT: Patient, ED PROVIDER(S): Abhishek Anne MD CHIEF COMPLAINT: Chest pain PLAN: Disposition: Admit MEDICAL DECISION MAKING: The patient is a pleasant 80-year-old gentleman with a past medical history of hypertension, type 2 diabetes, CAD, GERD, hyperlipidemia, paroxysmal atrial fibrillation on Coumadin who presents to the emergency department for evaluation of chest pain which occurred approximately 2 PM when he was getting ready to go to his scheduled doctor's appointment and upon arrival at the office EMS was called and he was given full dose aspirin and sublingual nitroglycerin with improvement in his pain and ultimate resolution upon arrival. Prior to this patient denies any recent pattern of exertional chest pain. He denies any fevers, chills, cough, congestion, GI or symptoms. He reports having his second Covid vaccination more than a month ago. Denies any known COVID-19 exposures. At this time patient reports only feeling a presence of what he felt earlier but denies any significant pain or discomfort. On arrival patient is in no acute distress, afebrile with blood pressure 200s/110s and vital signs otherwise stable. EKG without overt acute ischemia. Chest x-ray negative for acute cardiopulmonary process with most likely atelectasis. WBC and platelets within normal limits. H/H 12.7/30.1 similar to prior range of values. Chemistry without metabolic acidosis. Creatinine 1.6 proximal to prior injury values in the setting of CKD. Electrolytes and LFTs without significant abnormality. Troponin negative/undetectable. INR supratherapeutic at 8.3. No evidence of bleeding. Will defer to admitting team. Heart score 6, moderate risk. Given the patient's symptoms which did resolve with nitroglycerin reasonable to admit the patient for further evaluation. The patient and his at the bedside were in agreement with this. Given hydralazine for persistence of hypertensive urgency. Case was d/w Dr. Del Rosario, [facility] hospitalist who will evaluate the patient for admission. Triage Nursing notes reviewed and agree them. Prior medical records reviewed Vital Signs: reviewed and remarkable for hypertension. Differential diagnosis: Cardiac ischemia, aortic dissection, pulmonary embolism, pneumothorax, pneumonia, pericarditis, myocarditis, esophageal rupture, GERD, cholecystitis, pancreatitis, musculoskeletal, as well as other pathologies. ER treatment provided: See below. Diagnostics interpreted by me: ECG: Sinus rhythm with first-degree AV block, 60 bpm, no ectopy, no overt ST elevation or depression, QTC 480, QRS 90. Cardiac Monitoring: An order for continuous cardiac monitoring was placed and demonstrated sinus rhythm with first-degree AV block, 60 bpm, no ectopy. Laboratory studies: See below Imaging studies: See below Consultation(s): Case was d/w Dr. Del Rosario, [facility] hospitalist who will evaluate the patient for admission. HPI: The patient is a pleasant 80-year-old gentleman with a past medical history of hypertension, type 2 diabetes, CAD, GERD, hyperlipidemia, paroxysmal atrial fibrillation on Coumadin who presents to the emergency department for evaluation of chest pain which occurred approximately 2 PM when he was getting ready to go to his scheduled doctor's appointment and upon arrival at the office EMS was called and he was given full dose aspirin and sublingual nitroglycerin with improvement in his pain and ultimate resolution upon arrival. Prior to this patient denies any recent pattern of exertional chest pain. He denies any fevers, chills, cough, congestion, GI or symptoms. He reports having his second Covid vaccination more than a month ago. Denies any known COVID-19 exposures. At this time patient reports only feeling a presence of what he felt earlier but denies any significant pain or discomfort. ROS: See above HPI for pertinent positives & negatives. A total of 10 systems reviewed and were otherwise negative. PAST MEDICAL HISTORY:See Below PAST SURGICAL HISTORY:See Below FAMILY HISTORY:See Below SOCIAL HISTORY:See Below HOME MEDICATIONS:See Below ALLERGIES:See Below VITALS:See Below PHYSICAL EXAMINATION: GENERAL: Awake, alert, fatigued-appearing, in no distress HENT: Normocephalic, atraumatic. Oropharynx with dry mucous membranes and otherwise unremarkable. EYES: Normal conjunctiva. Sclera non-icteric. NECK: Supple. No nuchal rigidity. FROM. No JVD. RESPIRATORY: Clear to auscultation. CARDIAC: Regular rate, normal rhythm. Extremities warm and well perfused. Pulses equal. ABDOMEN: Soft, non-distended. No tenderness to palpation. No rebound or guarding. No masses. RECTAL: Deferred. MUSCULOSKELETAL: Chest examination reveals no tenderness. The back is symmetrical on inspection without obvious abnormality. There is no CVA tenderness to palpation. No joint edema. LOWER EXTREMITIES: Calves are equal size bilaterally and non-tender. No edema. No discoloration. NEURO: Normal sensorium. No sensory or motor deficits noted. SKIN: No rash or jaundice noted. Abhishek Anne MD Past Med/Surg History Medical History 2-vessel coronary artery disease Adenomatous polyposis coli Age-related cognitive decline Allergic rhinitis Anemia Atopic dermatitis Back pain Constipation Diabetes mellitus with neurological manifestation Diabetic nephropathy Diabetic peripheral neuropathy Esophageal reflux Essential familial hypercholesterolemia Falling Falling Falling Hearing loss of both ears due to cerumen impaction Hypercholesterolemia Hypertension Impingement syndrome of right shoulder Lumbar radiculopathy Proteinuria Sensorineural hearing loss of both ears SNHL (sensorineural hearing loss) Stage 3b chronic kidney disease Type 2 diabetes mellitus with insulin therapy Uncontrolled diabetes mellitus Vitamin D deficiency Surgical History H/O sinus surgery History of colonoscopy History of hernia repair Family History Other Cancer Diabetes Social History Smoking Status: Former smoker Hx Alcohol Use: No Hx Substance Use: No Preferred Language: Stateless Communication Ability: Effective Steel Spar Operator Required: No Beliefs That Will Affect Care: None Current Living Situation: Spouse Feels Safe at Home: Yes caffeine: Yes Seatbelt Use: sometimes Assistive Devices: Glasses Allergies Allergies Allergy/AdvReac Type Severity Reaction Status Date / Time No Known Drug Allergies Allergy Verified 12/17/20 16:00 Home Meds Home Medications Medication Instructions Recorded Confirmed amiodarone 200 mg PO QAM 12/17/20 12/17/20 aspirin 81 mg PO QAM 12/17/20 12/17/20 atorvastatin 40 mg PO QPM 12/17/20 12/17/20 bicalutamide [Casodex] 50 mg PO QPM 12/17/20 12/17/20 duloxetine 30 mg PO QAM 12/17/20 12/17/20 insulin glargine [Basaglar KwikPen 26 unit SQ QPM 12/17/20 12/17/20 U-100 Insulin] isosorbide mononitrate 30 mg PO QAM 12/17/20 12/17/20 magnesium oxide 400 mg PO QAM 12/17/20 12/17/20 warfarin 2.5 mg PO [id number] 12/17/20 12/17/20 warfarin 5 mg PO [id number] 12/17/20 12/17/20 Previous Rx's Medication Instructions Recorded omega-3 acid ethyl esters 1 gram 1 cap PO BID #180 cap 01/23/19 capsule acetaminophen 325 mg tablet 650 mg PO Q4H PRN #60 tab 08/04/19 pen needle, diabetic 32 gauge x #100 ea 10/17/19" nitroglycerin 0.4 mg sublingual 0.4 mg SUBLINGUAL Q5M PRN #25 tab 04/23/20 tablet blood sugar diagnostic #100 ea 05/10/20 metoprolol tartrate 50 mg tablet 25 mg PO BID #90 tab 05/12/20 lancets #100 ea 06/16/20 glimepiride 4 mg tablet 4 mg PO BID #180 tab 08/27/20 ergocalciferol (vitamin D2) 1,250 50,000 unit PO WEEKLY #12 cap 11/23/20 mcg (50,000 unit) capsule Results & Data (ED) Vital Signs Vital Signs - 24 hr 12/17/20 15:47 12/17/20 16:07 12/17/20 16:08 Temperature 37.2 C Temperature Source Oral Pulse Rate 58 L Pulse Rate [Apical] Pulse Rate from SpO2 Sensor Pulse Rhythm [Apical] Respiratory Rate 16 Respiratory Effort / Characteristics Respiratory Depth Respiratory Pattern Blood Pressure 217/122 H Blood Pressure [Right Arm] Blood Pressure Mean 153 Blood Pressure Mean [Right Arm] Pulse Oximetry 95 Oxygen Delivery Method Room Air Room Air Room Air Sepsis Recent Fever Within 48 Hours No Sepsis New/Unexplained Change in Mental Status N/A Sepsis Action Taken by Nursing No Action Required 12/17/20 17:25 12/17/20 17:56 12/17/20 18:49 Temperature Temperature Source Pulse Rate Pulse Rate [Apical] 61 63 70 Pulse Rate from SpO2 Sensor Pulse Rhythm [Apical] Regular Regular Respiratory Rate 20 18 18 Respiratory Effort / Characteristics Non-Labored Non-Labored Spontaneous Respiratory Depth Normal Normal Respiratory Pattern Regular Blood Pressure Blood Pressure [Right Arm] 203/117 H 212/115 H 154/85 H Blood Pressure Mean Blood Pressure Mean [Right Arm] 145 147 108 Pulse Oximetry 94 96 Oxygen Delivery Method Room Air Room Air Sepsis Recent Fever Within 48 Hours Sepsis New/Unexplained Change in Mental Status Sepsis Action Taken by Nursing 12/17/20 19:31 12/17/20 19:32 12/17/20 20:00 Temperature Temperature Source Pulse Rate 73 73 77 Pulse Rate [Apical] Pulse Rate from SpO2 Sensor 73 75 Pulse Rhythm [Apical] Respiratory Rate 22 16 23 Respiratory Effort / Characteristics Respiratory Depth Respiratory Pattern Blood Pressure 171/68 H 154/110 H Blood Pressure [Right Arm] Blood Pressure Mean 102 124 Blood Pressure Mean [Right Arm] Pulse Oximetry 94 96 95 Oxygen Delivery Method Sepsis Recent Fever Within 48 Hours Sepsis New/Unexplained Change in Mental Status Sepsis Action Taken by Nursing Laboratory Data Attestation: I reviewed the patient's lab results. Result diagrams: 12/17/20 16:00 12/17/20 16:00 Lab Results 12/17/20 12/17/20 12/17/20 Range/Units 16:00 16:00 16:00 WBC 7.71 (4.8-10.8) K/uL RBC 4.27 L (4.7-6.1) M/uL Hgb 12.7 L (14.0-18.0) g/dL Hct 38.1 L (42-52) % MCV 89.2 (80-100) fL MCH 29.7 (25-34) pg MCHC 33.3 (32-36) g/dL RDW Std Deviation 43.9 (36.4-46.3) fL RDW Coeff of Alexa 13.4 (11.5-14.5) % Plt Count 244 (130-400) K/uL MPV 10.5 H (7.4-10.4) fL Immature Gran % (Auto) 0.3 % Neut % (Auto) 61.1 % Lymph % (Auto) 26.5 % [place] % (Auto) 9.1 % Eos % (Auto) 2.5 % Baso % (Auto) 0.5 % Neut # (Auto) 4.72 (1.4-6.5) K/uL Lymph # (Auto) 2.04 (1.2-3.4) K/uL [place] # (Auto) 0.70 H (0.11-0.59) K/uL Eos # (Auto) 0.19 (0-0.5) K/uL Baso # (Auto) 0.04 (0-0.2) K/uL Immature Gran # (Auto) 0.02 (0.00-0.02) K/uL PT (9.0-12.0) Seconds INR (0.9-1.1) Sodium 139 (136-145) mmol/L Potassium 3.9 (3.5-5.1) mmol/L Chloride 106 (98-107) mmol/L Carbon Dioxide 28 (21-32) mmol/L Anion Gap 4.0 (3-11) BUN 28 H (7-18) mg/dl Creatinine 1.65 H (0.6-1.4) mg/dl Est Cr Clr Drug Dosing 39.8 ml/min Est GFR ( Amer) 44.1 Est GFR (Non-Af Amer) 38.1 BUN/Creatinine Ratio 17.0 (10-20) Glucose 203 H (70-99) mg/dl Calcium 9.4 (8.5-10.1) mg/dl Phosphorus 3.6 (2.5-4.9) mg/dl Magnesium 2.3 (1.8-2.4) mg/dl Total Bilirubin 0.5 (0.2-1) mg/dl AST 37 (15-37) U/L ALT 58 (12-78) U/L Alkaline Phosphatase 84 (45-117) U/L Troponin I < 0.015 (0-0.045) ng/ml Total Protein 7.2 (6.4-8.2) gm/dl Albumin 3.5 (3.4-5.0) gm/dl Globulin 3.7 (2.5-4.0) gm/dl Albumin/Globulin Ratio 0.9 (0.9-2) Lipase 211 (73-393) U/L Urine Color Urine Appearance (Clear) Urine pH (4.5-7.5) Ur Specific [place] (1.000-1.030) Urine Protein (Negative) Urine Glucose (UA) (Negative) Urine Ketones (Negative) Urine Blood (Negative) Urine Nitrite (Negative) Urine Bilirubin (Negative) Urine Urobilinogen (Negative) Ur Leukocyte Esterase (Negative) Urine WBC (Auto) (0-5) /hpf Urine RBC (Auto) (0-4) /hpf U Hyaline Cast (Auto) (0-5) /lpf U Epithel Cells (Auto) (0-5) /lpf Urine Bacteria (Auto) (Negative) COVID-19 Eval Order SARS-CoV-2 (PCR) (Negative) Influenza Type A (PCR) (Neg) Influenza Type B (PCR) (Neg) RSV (RT-PCR) (Neg) 12/17/20 12/17/20 12/17/20 Range/Units 16:00 17:00 17:15 WBC (4.8-10.8) K/uL RBC (4.7-6.1) M/uL Hgb (14.0-18.0) g/dL Hct (42-52) % MCV (80-100) fL MCH (25-34) pg MCHC (32-36) g/dL RDW Std Deviation (36.4-46.3) fL RDW Coeff of Alexa (11.5-14.5) % Plt Count (130-400) K/uL MPV (7.4-10.4) fL Immature Gran % (Auto) % Neut % (Auto) % Lymph % (Auto) % [place] % (Auto) % Eos % (Auto) % Baso % (Auto) % Neut # (Auto) (1.4-6.5) K/uL Lymph # (Auto) (1.2-3.4) K/uL [place] # (Auto) (0.11-0.59) K/uL Eos # (Auto) (0-0.5) K/uL Baso # (Auto) (0-0.2) K/uL Immature Gran # (Auto) (0.00-0.02) K/uL PT 70.9 H (9.0-12.0) Seconds INR 8.3 H* (0.9-1.1) Sodium (136-145) mmol/L Potassium (3.5-5.1) mmol/L Chloride (98-107) mmol/L Carbon Dioxide (21-32) mmol/L Anion Gap (3-11) BUN (7-18) mg/dl Creatinine (0.6-1.4) mg/dl Est Cr Clr Drug Dosing ml/min Est GFR ( Amer) Est GFR (Non-Af Amer) BUN/Creatinine Ratio (10-20) Glucose (70-99) mg/dl Calcium (8.5-10.1) mg/dl Phosphorus (2.5-4.9) mg/dl Magnesium (1.8-2.4) mg/dl Total Bilirubin (0.2-1) mg/dl AST (15-37) U/L ALT (12-78) U/L Alkaline Phosphatase (45-117) U/L Troponin I (0-0.045) ng/ml Total Protein (6.4-8.2) gm/dl Albumin (3.4-5.0) gm/dl Globulin (2.5-4.0) gm/dl Albumin/Globulin Ratio (0.9-2) Lipase (73-393) U/L Urine Color Yellow Urine Appearance Clear (Clear) Urine pH 7.5 (4.5-7.5) Ur Specific [place] 1.009 (1.000-1.030) Urine Protein 2+ H (Negative) Urine Glucose (UA) 1+ H (Negative) Urine Ketones Negative (Negative) Urine Blood Negative (Negative) Urine Nitrite Negative (Negative) Urine Bilirubin Negative (Negative) Urine Urobilinogen Negative (Negative) Ur Leukocyte Esterase Negative (Negative) Urine WBC (Auto) 0 (0-5) /hpf Urine RBC (Auto) 0-4 (0-4) /hpf U Hyaline Cast (Auto) 0 (0-5) /lpf U Epithel Cells (Auto) 5-10 H (0-5) /lpf Urine Bacteria (Auto) Negative (Negative) COVID-19 Eval Order CovFluRsv at [facility] SARS-CoV-2 (PCR) (Negative) Influenza Type A (PCR) (Neg) Influenza Type B (PCR) (Neg) RSV (RT-PCR) (Neg) 12/17/20 Range/Units 17:15 WBC (4.8-10.8) K/uL RBC (4.7-6.1) M/uL Hgb (14.0-18.0) g/dL Hct (42-52) % MCV (80-100) fL MCH (25-34) pg MCHC (32-36) g/dL RDW Std Deviation (36.4-46.3) fL RDW Coeff of Alexa (11.5-14.5) % Plt Count (130-400) K/uL MPV (7.4-10.4) fL Immature Gran % (Auto) % Neut % (Auto) % Lymph % (Auto) % [place] % (Auto) % Eos % (Auto) % Baso % (Auto) % Neut # (Auto) (1.4-6.5) K/uL Lymph # (Auto) (1.2-3.4) K/uL [place] # (Auto) (0.11-0.59) K/uL Eos # (Auto) (0-0.5) K/uL Baso # (Auto) (0-0.2) K/uL Immature Gran # (Auto) (0.00-0.02) K/uL PT (9.0-12.0) Seconds INR (0.9-1.1) Sodium (136-145) mmol/L Potassium (3.5-5.1) mmol/L Chloride (98-107) mmol/L Carbon Dioxide (21-32) mmol/L Anion Gap (3-11) BUN (7-18) mg/dl Creatinine (0.6-1.4) mg/dl Est Cr Clr Drug Dosing ml/min Est GFR ( Amer) Est GFR (Non-Af Amer) BUN/Creatinine Ratio (10-20) Glucose (70-99) mg/dl Calcium (8.5-10.1) mg/dl Phosphorus (2.5-4.9) mg/dl Magnesium (1.8-2.4) mg/dl Total Bilirubin (0.2-1) mg/dl AST (15-37) U/L ALT (12-78) U/L Alkaline Phosphatase (45-117) U/L Troponin I (0-0.045) ng/ml Total Protein (6.4-8.2) gm/dl Albumin (3.4-5.0) gm/dl Globulin (2.5-4.0) gm/dl Albumin/Globulin Ratio (0.9-2) Lipase (73-393) U/L Urine Color Urine Appearance (Clear) Urine pH (4.5-7.5) Ur Specific [place] (1.000-1.030) Urine Protein (Negative) Urine Glucose (UA) (Negative) Urine Ketones (Negative) Urine Blood (Negative) Urine Nitrite (Negative) Urine Bilirubin (Negative) Urine Urobilinogen (Negative) Ur Leukocyte Esterase (Negative) Urine WBC (Auto) (0-5) /hpf Urine RBC (Auto) (0-4) /hpf U Hyaline Cast (Auto) (0-5) /lpf U Epithel Cells (Auto) (0-5) /lpf Urine Bacteria (Auto) (Negative) COVID-19 Eval Order SARS-CoV-2 (PCR) NEGATIVE (Negative) Influenza Type A (PCR) Negative (Neg) Influenza Type B (PCR) Negative (Neg) RSV (RT-PCR) Negative (Neg) Administered Medications Atorvastatin Calcium (Atorvastatin 40 Mg Tab) 40 mg PO QPM ZACH Stop: 01/16/21 21:36 Last Admin: 12/17/20 22:26 Dose: 40 mg Documented by: [id number] Bicalutamide (Bicalutamide 50 Mg Tab) 50 mg PO QPM ZACH Stop: 01/16/21 21:36 Last Admin: 12/17/20 22:22 Dose: 50 mg Documented by: [id number] Cosigned by: [id number] Fish Oil ([place]lett-3 (Purified Fish Oil) 1 Gm Cap) 1 gm PO BID ZACH Stop: 01/16/21 21:36 Last Admin: 12/17/20 22:37 Dose: 1 gm Documented by: [id number] Insulin Aspart (Insulin Aspart 100 Units/Ml 3 Ml Pen) 0 units SC ACHS ZACH Stop: 01/16/21 21:59 Last Admin: 12/17/20 22:24 Dose: Not Given Documented by: [id number] Cosigned by: [id number] Insulin Glargine (Insulin Glargine Solostar 100 Units/Ml 3 Ml Pen) 26 units SQ QPM ZACH Stop: 01/16/21 21:59 Last Admin: 12/17/20 22:26 Dose: 26 units Documented by: [id number] Cosigned by: [id number] Metoprolol Tartrate (Metoprolol Tartrate 25 Mg Tab) 25 mg PO BID ZACH Stop: 01/16/21 21:36 Last Admin: 12/17/20 22:25 Dose: 25 mg Documented by: [id number] Potassium Chloride (Potassium Chloride 10 Meq Tabcr) 10 meq PO [id number] ZACH Stop: 01/16/21 21:59 Last Admin: 12/17/20 22:26 Dose: 10 meq Documented by: [id number] Discontinued Medications Hydralazine HCl (Hydralazine Hcl 20 Mg/Ml Vial) 10 mg IV NOW STA Stop: 12/17/20 18:03 Last Admin: 12/17/20 18:23 Dose: 10 mg Documented by: [id number] Sodium Chloride (Nss) 500 mls @ 999 mls/hr IV .Q31M ONE Stop: 12/17/20 17:14 Last Infusion: 12/17/20 17:43 Dose: 0 mls/hr Documented by: [id number] Admin: 12/17/20 17:14 Dose: 999 mls/hr Documented by: [id number] Losartan Potassium (Losartan Potassium 25 Mg Tab) 25 mg PO NOW STA Stop: 12/17/20 21:38 Last Admin: 12/17/20 22:25 Dose: 25 mg Documented by: [id number] Phytonadione (Phytonadione 5 Mg Tab) 2.5 mg PO NOW STA Stop: 12/17/20 21:38 Last Admin: 12/17/20 22:25 Dose: 2.5 mg Documented by: [id number] Imaging Data Radiologist's Impression: Chest X-Ray 12/17/20 16:06 XR chest 1V portable CLINICAL HISTORY: Chest Pain COMPARISON STUDY: Chest radiograph May 27, 2019. FINDINGS: Lung volumes are mildly diminished. There is no pneumothorax or pleural effusion. Minimal bibasilar opacities are present. Note is made of cardiomegaly without evidence for pulmonary edema. IMPRESSION: 1. Low lung volumes with bibasilar opacities that favor atelectasis. 2. Cardiomegaly. No evidence for pulmonary edema. ACT 112: Negative or not required by law. Electronically signed by: Albino Kim M.D. 12/17/2020 4:27 PM Discharge Plan Visit Data Chief Complaint: Chest Pain Stated Complaint: CHEST PAIN ED Provider: Abhishek Anne Discharge Problem: Hypertensive urgency, Substernal chest pain, Supratherapeutic INR, CKD (chronic kidney disease) Patient Disposition: Admitted As Inpatient Discharge Instructions Interventions: ED Discharge Assessment Last Done: 12/17/20 21:08 Discharge Problem: CKD (chronic kidney disease) Qualifiers: Chronic kidney disease stage: unspecified stage Qualified Code(s): N18.9 - Chronic kidney disease, unspecified
[2020-12-17] MEDS ORDERED: hydrALAZINE HCL 20 MG/ML VIAL IV STA (18:02)
[2020-12-17 18:27] LABS: Influenza A virus by PCR Negative (Neg); Influenza B virus by PCR Negative (Neg); RSV by PCR Negative (Neg); SARS CoV2 RNA(COVID-19) InHosp NEGATIVE (Negative)
[2020-12-17 18:44] LABS: Prothrombin Time 70.9 Seconds (9.0-12.0)
[2020-12-17 18:45] LABS: INR 8.3 (0.9-1.1)
[2020-12-17 19:22] LABS: Appearance Urine Clear (Clear); Bacteria Urine Automated Negative (Negative); Bilirubin Urine Negative (Negative); Blood Urine Negative (Negative); Cast Urine Automated 0 /lpf (0-5); Color Urine Yellow; Glucose Urine UA 1+ (Negative); Ketones Urine Negative (Negative); Leukocyte Esterase Urine Negative (Negative); Nitrite Urine Negative (Negative); RBC Urine Automated 0-4 /hpf (0-4); Specific Gravity Urine 1.009 (1.000-1.030); Urobilinogen Urine Negative (Negative); WBC Urine Automated 0 /hpf (0-5); pH Urine 7.5 (4.5-7.5)
[2020-12-17 19:24] LABS: Protein Urine 2+ (Negative)
--- NOTE | 2020-12-17 19:50 | History & Physical Report ---
Date of Service December 17, 2020 Assessment & Plan (1) Hypertensive urgency: Jose L is an 80yo dykr-wo-dtdruht gentleman with a history of HTN, CAD, CKD3, T2DM, CAD, GERD, HLD, PAF on Coumadin who presented to the [facility] ER at the request of his PCP for evaluation of hypertensive urgency vs. emergency (BPs ~ 220/140) alongside new chest pain Hypertensive Urgency vs. Emergency -- no current evidence of new end-organ damage, but work-up pending - At PCP office, noted to have new-onset chest pain with BP >200/100 -- got nitro + ASA x 1 en route via EMS - Upon arrival, BP noted to be about the same - Work-up as follows - BMP showing Cr 1.65 (baseline) - CBC without thrombocytopenia or new anemia - Troponin negative - ECG with unchanged 1st degree AVB, no conduction/repolarization abnormalities - CXR with normal aortic caliper, mild L-basilar haziness c/w atelectasis - UE/LE pulses 2+ and equal b/l - Nonfocal neuro exam -- no appreciable papilledema on exam - Possibly d/t medication changes: patient's daughter reports he has not been taking losartan-HCTZ + amlodipine d/t hypotension back in August (per Chart) - Casodex is noted to contribute to HTN in 8% of individuals per review, but low suspicion this is cause of severe-range BPs - Goal: reduce BP by ~20-25% in first 2 hours - S/P hydralazine 10mg IV x 1 in ER with good response - Continuous cardiac monitoring - Neuro checks q4h through the night - Continue home Imdur, metoprolol - Initiate losartan 25mg daily (as, per family hx, has not been taking hctz- losartan at home) -- consider addition of amlodipine thereafter - Consult cardiology - [facility] - Admit to PCU - BMP, CBC, Mg in AM Chest Pain - Suspect likely secondary to profound hypertension, increased afterload/cardiac strain - No evidence of ECG, troponin changes c/f ischemia -- will trend troponins - No evidence of physical exam or CXR findings c/f aortic dissection - Continue to monitor -- suspect this may decrease with blood pressure management - Carefully consider additional nitro p.r.n. - Low threshold for echocardiography - Cardiology consult as above Supratherapeutic INR - On warfarin for paroxysmal AF - Per daughter -- MWF 5mg / TRSaSu 2.5mg (25mg/week) // ?follows with [facility] anticoagulation - Vitamin K 2.5mg PO x 1 in setting of HTN urgency/emergency - Hold home warfarin - Will require coordination with patient's anticoagulation clinic upon d/c - PT/INR in AM Paroxysmal Atrial Fibrillation - NSR upon arrival here, normal rate - Continue home amiodarone 200mg daily - PCU, continuous cardiac monitoring - Hold home warfarin as above T2DM - A1c 9.9 on 10/20 - Hold home medications other than Lantus - Continue home Lantus 26U daily - AC/HS BSG checks with correction 30, goal range 100-140 - May need decrease in correction factor given suspected high resistance Other Chronic Medical Problems CKD3: Noted. Baseline Cr ~1.6. Stable. HLD: Continue statin Anxiety/Back Pain: Continue Cymbalta Prostate Cancer: Continue Casodex Diet: CC/HH/Low Sodium Code: Full code PPX: None given supratherapeutic INR Dispo: PCU (2) Stage 3b chronic kidney disease: (3) 2-vessel coronary artery disease: (4) Coronary atherosclerosis of lower [place] coronary vessel: History of Present Illness Primary Care Provider: Jb Bean MD Jose L is an 80yo qttg-bi-ojwdpyk gentleman with a history of HTN, CAD, CKD3, T2DM, CAD, GERD, HLD, PAF on Coumadin who presented to the [facility] ER at the request of his PCP for evaluation of severe-range BPs (220/140) alongside new chest pain. Patient is very hard of hearing, which limits conversation/history; his daughter aids with history. Jose L reports that he was otherwise in his normal health until early this afternoon when he noticed substernal chest pain around 1400. He proceeded to go to is scheduled PCP visit with Dr. Bean, where he was noted to have a BP of 220/140. EMS was called given the combination of symptoms and BPs, and he was given ASA and nitroglycerin en route with improvement of his chest pain. Jose L reports being in his normal health up until this point. He has not experienced this CP before; at baseline, no shortness of breath or chest pressure with exertion. He denies headaches or changes in vision throughout this time. Denies weakness or new numbness/tingling. Denies shortness of breath. He denies any recent changes in diet to me. He denies any recent illnesses. His daughter does note that following hypotensive readings obtained earlier in the year (August - noted in chart), some of his blood pressure medications were changed. Of note, the daughter arranges his medications each week, and his makes sure that he takes them each day -- so he has been taking his medications as prescribed per daughter. Notably, she notes that he was told to hold the losartan-HCTZ and amlodipine ; however, it is unclear when this hold was initiated or when the last time the patient took the medication -- last prescribe date (for losartan-HCTZ) was 08/26/20, and cardiology note from 09/20 (scanned into [facility] system) does mention recommendation to continue. He has otherwise been taking his metoprolol, isosorbide mono as prescribed. In the ER, he was found to be hypertensive to 217/122 and HRs ~60. While he complained of mild chest pain, he was not experiencing any headache, changes in vision, or FNDs. His renal function was at baseline (Cr 1.65). H+H stable, plat elets normal. LFTs normal. Troponin negative. CXR showing some L basilar haziness, likely c/w atelectasis. Received IV hydralazine 10mg with steady decrease in pressures to around the ~160 SBP range. Allergies Allergy/AdvReac Type Severity Reaction Status Date / Time No Known Drug Allergies Allergy Verified 12/17/20 16:00 Home Medications Medication Instructions Recorded Confirmed Type omega-3 acid ethyl esters 1 gram 1 cap PO BID #180 cap 01/23/19 12/17/20 Rx capsule acetaminophen 325 mg tablet 650 mg PO Q4H PRN #60 tab 08/04/19 12/17/20 Rx pen needle, diabetic 32 gauge x #100 ea 10/17/19 12/17/20 Rx 32" nitroglycerin 0.4 mg sublingual 0.4 mg SUBLINGUAL Q5M PRN #25 tab 04/23/20 12/17/20 Rx tablet blood sugar diagnostic #100 ea 05/10/20 12/17/20 Rx metoprolol tartrate 50 mg tablet 25 mg PO BID #90 tab 09/30/20 05/07/21 Rx lancets #100 ea 06/16/20 12/17/20 Rx glimepiride 4 mg tablet 4 mg PO BID #180 tab 08/27/20 12/17/20 Rx ergocalciferol (vitamin D2) 1,250 50,000 unit PO WEEKLY #12 cap 11/23/20 12/17/20 Rx mcg (50,000 unit) capsule amiodarone 200 mg PO QAM 12/17/20 12/17/20 History aspirin 81 mg PO QAM 12/17/20 12/17/20 History atorvastatin 40 mg PO QPM 12/17/20 12/17/20 History bicalutamide [Casodex] 50 mg PO QPM 12/17/20 12/17/20 History duloxetine 30 mg PO QAM 12/17/20 12/17/20 History insulin glargine [Basaglar KwikPen 26 unit SQ QPM 12/17/20 12/17/20 History U-100 Insulin] isosorbide mononitrate 30 mg PO QAM 12/17/20 12/17/20 History magnesium oxide 400 mg PO QAM 12/17/20 12/17/20 History warfarin 2.5 mg PO 4XWK 12/17/20 12/17/20 History warfarin 5 mg PO 3XWK 12/17/20 12/17/20 History Past Med/Surg History Medical History 2-vessel coronary artery disease Adenomatous polyposis coli Age-related cognitive decline Allergic rhinitis Anemia Atopic dermatitis Back pain Constipation Diabetes mellitus with neurological manifestation Diabetic nephropathy Diabetic peripheral neuropathy Esophageal reflux Essential familial hypercholesterolemia Falling Falling Falling Hearing loss of both ears due to cerumen impaction Hypercholesterolemia Hypertension Impingement syndrome of right shoulder Lumbar radiculopathy Proteinuria Sensorineural hearing loss of both ears SNHL (sensorineural hearing loss) Stage 3b chronic kidney disease Type 2 diabetes mellitus with insulin therapy Uncontrolled diabetes mellitus Vitamin D deficiency Surgical History H/O sinus surgery History of colonoscopy History of hernia repair Family History Other Cancer Diabetes Social History Smoking Status: Former smoker Smoking End Date: 1987; Second Hand Exposure: No; Do You Dip or Chew Tobacco: No; Tobacco Cessation Education Requested by Patient: No Hx Alcohol Use: No Hx Substance Use: No Preferred Language: Faroese Communication Ability: Effective Coal Passer Required: No Beliefs That Will Affect Care: None Current Living Situation: Spouse Other Information That Helps Us Care for You: No Feels Safe at Home: Yes Safety Concerns: Feels Safe At This Time caffeine: Yes Seatbelt Use: sometimes Assistive Devices: Cane, Denture - Upper, Denture - Lower, Glasses and Hearing Aid - Bilateral Review of Systems Review of Systems: As per HPI Physical Exam Physical Exam: General: 80yoM who is alert, oriented, and appears in no acute distress. Appears well overall. Nontoxic appearance. Hard of hearing. Alert and oriented to person, time, unaware of which hospital he is at. He does respond generally appropriately to questions throughout discussion. HEENT: NCAT. Eyes - Sclera are white, anicteric, and without injection. PERRL. EOMs display full ROM bilaterally. Mouth - MMM with no tonsillar edema or exudates. Cardiac: Normal rate and regular rhythm; S1 and S2 present with no murmurs, rubs, or gallops. Pulmonary: Good respiratory effort with symmetric expansion of the chest. No use of accessory muscles. Lungs were clear to auscultation bilaterally with no crackles or wheezes. Abdominal: Normoactive bowel sounds. Abdomen was soft, nondistended, and non- tender to palpation. Extremities: Upper and lower extremities are warm and well perfused. Radial and dorsalis pedis pulses were 2+ b/l and equal. Capillary refill assessed in UE was < 3 sec. Neuro: - Cranial Nerves: CN I, IX, and X - not assessed. II - PERRL. III/IV/ - EOMs WNL. No nystagmus. V - Facial sensation in tact in all three divisions; jaw opening WNL. VII - Patient is able to smile symmetrically and keep eyes close against resistance. VIII - difficulty hearing bilaterally. IX- Patient is able to rotate head and shrug shoulders against resistance. XI - Soft palate raises equally and appropriately while saying "ah." XII - patient is able to stick out tongue and deviate from [id number] appropriately. - Motor: UE - Finger, wrist, elbow, and shoulder strength is 5/5 bilaterally. LE - Hip, knee, and ankle strength is 5/5 bilaterally. - Sensation: UE and LE sensation to light touch is grossly intact bilaterally. - Reflexes - Biceps 2+ b/l; brachioradialis 2+ b/l; patellar 2+ b/l; Achilles 2+ b/l. - [id number]: WNL b/l. No dysmetria. Psych: Well-developed, well-nourished, appropriately dressed for occasion. Behavior is cooperative and appropriate. Affect is WNL. Insight is appropriate. Results & Data Results & Data ([facility]) Vital Signs (Past 12 Hours) Vital Signs Temp Pulse Pulse Resp BP BP Pulse Ox 12/17/20 18:49 70 18 154/85 H 96 12/17/20 17:56 63 18 212/115 H 12/17/20 17:25 61 20 203/117 H 94 12/17/20 15:47 37.2 C 58 L 16 217/122 H 95 Diagnostic Findings Chest X-Ray 12/17/20 16:06 XR chest 1V portable CLINICAL HISTORY: Chest Pain COMPARISON STUDY: Chest radiograph May 27, 2019. FINDINGS: Lung volumes are mildly diminished. There is no pneumothorax or pleural effusion. Minimal bibasilar opacities are present. Note is made of cardiomegaly without evidence for pulmonary edema. IMPRESSION: 1. Low lung volumes with bibasilar opacities that favor atelectasis. 2. Cardiomegaly. No evidence for pulmonary edema. ACT 112: Negative or not required by law. Electronically signed by: Albino Kim M.D. 12/17/2020 4:27 PM Supervising Physician Co-Signing Physician Notes I personally examined the patient and verified all xie points of history and exam, discussed case, and agree with decision making with Dr. Olvera with the following additions/exceptions: Pt presents with left sided chest pain and severely elevated BP that came on suddenly today. He denies any headache, SOB, abd pain, nausea, no numbness/tingling. BPs > 200s/100s systolic and now improved with IV hydralazine and now reports CP is gone. Initial trop and ECG within normal limits History and ROS reviewed Vitals reviewed AAOx3, NAD RRR no mgr CTAB no wcr Abd +SB soft NT ND Ext no edema, no calf tenderness Skin no rashes Labs and Rads reviewed 80 yo male with hypertensive urgency, chest pain serial troponins,Cardio consult, control BP follow BMP Resident Activity Tracking Resident Involvement: Resident Care Provided Care Provided: Adult Hospital Medicine
[2020-12-17] MEDS ORDERED: NITROGLYCERIN SL 0.4 MG/TAB TAB SL PRN (21:37)
[2020-12-17] MEDS ORDERED: GLUCAGON FOR INJ 1 MG VIAL SQ PRN (21:37)
[2020-12-17] MEDS ORDERED: LOSARTAN POTASSIUM 25 MG TAB PO STA (21:37)
[2020-12-17] MEDS ORDERED: DEXTROSE 50% 50 ML SYRINGE IV PRN (21:37)
[2020-12-17] MEDS ORDERED: PHYTONADIONE 5 MG TAB PO STA (21:37)
[2020-12-17] MEDS ORDERED: GLUCOSE 40% GEL 15 GM TUBE PO PRN (21:37)
[2020-12-17] MEDS ORDERED: CARBOHYDRATES FOR HYPOGLYCEMIA PO PRN (21:37)
[2020-12-17] MEDS ORDERED: ACETAMINOPHEN 325 MG TAB PO PRN (21:37)
[2020-12-17] MEDS ORDERED: GLUCOSE 10 TABS/TUBE PO PRN (21:37)
[2020-12-17] MEDS ORDERED: POLYETHYLENE (MIRALAX) 17 GM PACK PO PRN (21:37)
[2020-12-17] MEDS: BICALUTAMIDE 50 MG TAB PO SCH (22:22)
[2020-12-17] MEDS: INSULIN ASPART 100 UNITS/ML 3 ML PEN SC SCH (22:24)
[2020-12-17] MEDS: METOPROLOL TARTRATE 25 MG TAB PO SCH (22:25)
[2020-12-17] MEDS: POTASSIUM CHLORIDE 10 MEQ TABCR PO SCH (22:26)
[2020-12-17] MEDS: INSULIN GLARGINE SOLOSTAR 100 UNITS/ML 3 ML PEN SQ SCH (22:26)
[2020-12-17] MEDS: ATORVASTATIN 40 MG TAB PO SCH (22:26)
[2020-12-17] MEDS: OMEGA-3 (PURIFIED FISH OIL) 1 GM CAP PO SCH (22:37)
--- NOTE | 2020-12-17 22:43 | Billing Data ---
Date of Service December 17, 2020 Coding Level of Care Code 12523 Initial Inpt Care Lvl 3
[2020-12-18 07:03] LABS: Basophils # (auto) 0.02 K/uL (0-0.2); Basophils % (auto) 0.2 %; Eosinophils # (auto) 0.14 K/uL (0-0.5); Eosinophils % (auto) 1.4 %; Hemoglobin 13.5 g/dL (14.0-18.0); Immature Granulocytes # (auto) 0.02 K/uL (0.00-0.02); Immature Granulocytes % (auto) 0.2 %; Lymphocytes # (auto) 1.82 K/uL (1.2-3.4); Lymphocytes % (auto) 17.6 %; Mean Corpuscular Hemoglobin 30.5 pg (25-34); Mean Corpuscular Hgb Conc 34.6 g/dL (32-36); Mean Corpuscular Volume 88.2 fL (80-100); Mean Platelet Volume 10.2 fL (7.4-10.4); Monocytes # (auto) 1.01 K/uL (0.11-0.59); Monocytes % (auto) 9.8 %; Neutrophils # (auto) 7.33 K/uL (1.4-6.5); Neutrophils % (auto) 70.8 %; Platelet Count 255 K/uL (130-400); RDW Coefficient of Variation 13.5 % (11.5-14.5); RDW Standard Deviation 43.1 fL (36.4-46.3); Red Blood Count 4.42 M/uL (4.7-6.1); White Blood Count 10.34 K/uL (4.8-10.8)
[2020-12-18 07:21] LABS: Calcium 8.9 mg/dl (8.5-10.1); Creatinine Clr Calc Pharmacy 44.6 ml/min; Est GFR (African American) 55.8; Est GFR (Non-African American) 48.1; INR 4.4 (0.9-1.1); Magnesium 2.2 mg/dl (1.8-2.4); Potassium 3.9 mmol/L (3.5-5.1); Prothrombin Time 39.3 Seconds (9.0-12.0)
[2020-12-18] MEDS: ASPIRIN 81 MG ECTAB PO SCH (07:39)
[2020-12-18] MEDS: AMIODARONE 200 MG TAB PO SCH (07:39)
[2020-12-18] MEDS: OMEGA-3 (PURIFIED FISH OIL) 1 GM CAP PO SCH ×2 (07:39→20:38)
[2020-12-18] MEDS: DULoxetine HCL 30 MG CAP PO SCH (07:39)
[2020-12-18] MEDS: LOSARTAN POTASSIUM 25 MG TAB PO SCH (07:40)
[2020-12-18] MEDS: METOPROLOL TARTRATE 25 MG TAB PO SCH ×2 (07:40→20:39)
[2020-12-18] MEDS: MAGNESIUM OXIDE 400 MG TAB PO SCH (07:40)
[2020-12-18] MEDS: ISOSORBIDE MONO EXTENDED REL 30 MG TABCR PO SCH (07:40)
[2020-12-18] MEDS: POTASSIUM CHLORIDE 10 MEQ TABCR PO SCH ×2 (07:40→16:54)
[2020-12-18] MEDS: INSULIN ASPART 100 UNITS/ML 3 ML PEN SC SCH ×4 (07:41→20:46)
[2020-12-18 08:10] LABS: Estimated Average Glucose 232 mg/dl; Hemoglobin A1C 9.7 % (4.5-5.6)
--- NOTE | 2020-12-18 09:51 | Electrocardiogram Report ---
Test Reason : Blood Pressure : / mmHG Vent. Rate : 060 BPM Atrial Rate : 060 BPM P-R Int : 338 ms QRS Dur : 090 ms QT Int : 480 ms P-R-T Axes : 096 003 029 degrees QTc Int : 480 ms Poor data quality, interpretation may be adversely affected Sinus rhythm with 1st degree A-V block Prolonged QT Abnormal ECG When compared with ECG of 28-MAY-2019 07:07, Premature ventricular complexes are no longer Present Confirmed by Sherif Jonas ([id number]) on 12/18/2020 9:50:34 AM Referred By: Jb Bean Confirmed By:Sherif Jonas
--- NOTE | 2020-12-18 13:41 | Cardiology Consultation ---
Date of Consultation December 18, 2020 Assessment & Plan (1) Substernal chest pain: (2) Hypertensive urgency: Patient presents with severe hypertension, chest discomfort that has since resolved. Troponin I levels have been negative x3 (undetectable). EKG performed yesterday at 1552 revealed sinus rhythm at 60 bpm, with a long first-degree AV block, NH interval 380 ms, and no significant ST changes. Per [facility] chart, Home blood pressure regimen includes isosorbide mononitrate 30 mg daily, metoprolol tartrate 50 mg, 1/2 tablet twice daily, amlodipine 5 mg daily, losartan/HCTZ 50/25 1 tablet by mouth daily Hytrin 5 mg daily. Per family apparently patient has not been taking losartan/HCTZ. Per medication list in Dr Camarena progress noted dated 11/23/20, he has not been on amlodipine or Hytrin either. Blood pressure at the time of recent outpatient visit was 118/62. I think at this time it is most prudent to continue his known home medications, the admitting team has already resumed the losartan (without HCTZ). Agree with next step would be to add back the amlodipine. Historically, outpatient blood pressures have been well controlled both in his [facility] and [place] charts. Perhaps with patient had missed several doses. With regards to his history of arrhythmia/conduction system disease, he does have a long first-degree AV block, and a history of symptomatic atrial flutter, diagnosed in 2019. Continue cautious treatment with low-dose metoprolol tartrate 25 mg, twice daily and amiodarone 200 mg daily. INR was supratherapeutic on presentation, 8.3, Coumadin held, vitamin K administered, it is trended down to 4.4. Repeat INR tomorrow. At present, I think patient should be in the hospital pending further optimization of his blood pressure. A repeat EKG has been requested. History of Present Illness Attending Physician: Eunice Del Rosario MD History of Present Illness Jose L Conde is an 80-year-old male seen in cardiology consultation per the request of Dr. Del Rosario for the evaluation of chest discomfort and elevated blood pressure. The patient follows with both Dr. Mandel and Dr. Downing of our practice. He presented to the emergency room yesterday for complaint of left-sided chest discomfort, with blood pressure reading of 217/122 on presentation, repeat level of 220/140 shortly thereafter. His most recent repeat blood pressures this afternoon at 1241 was 148/84. He noted a vague chest discomfort in his left chest he states yesterday, but he is not a very good historian. At present, he denies any subjective symptoms. Cardiac Problem List: 1. Mild to moderate coronary atherosclerosis without obstructive disease on remote cardiac catheterization in 2009 2. Hypertension 3. Dyslipidemia 4. Since ventricular ectopy 5. Paroxysmal atrial fibrillation/flutter 6. Lower extremity peripheral edema 7. Type 2 diabetes mellitus 8. Chronic back pain, spinal stenosis 9. Stage III B chronic kidney disease with proteinuria 10. History of prostate carcinoma, for which he is on Casodex Allergies Allergy/AdvReac Type Severity Reaction Status Date / Time No Known Drug Allergies Allergy Verified 12/17/20 16:00 Home Medications Medication Instructions Recorded Confirmed Type omega-3 acid ethyl esters 1 gram 1 cap PO BID #180 cap 01/23/19 12/17/20 Rx capsule acetaminophen 325 mg tablet 650 mg PO Q4H PRN #60 tab 08/04/19 12/17/20 Rx pen needle, diabetic 32 gauge x #100 ea 10/17/19 12/17/20 Rx 5/32" nitroglycerin 0.4 mg sublingual 0.4 mg SUBLINGUAL Q5M PRN #25 tab 04/23/20 12/17/20 Rx tablet blood sugar diagnostic #100 ea 05/10/20 12/17/20 Rx metoprolol tartrate 50 mg tablet 25 mg PO BID #90 tab 05/12/20 12/17/20 Rx lancets #100 ea 06/16/20 12/17/20 Rx glimepiride 4 mg tablet 4 mg PO BID #180 tab 08/27/20 12/17/20 Rx ergocalciferol (vitamin D2) 1,250 50,000 unit PO WEEKLY #12 cap 11/23/20 12/17/20 Rx mcg (50,000 unit) capsule amiodarone 200 mg PO QAM 12/17/20 12/17/20 History aspirin 81 mg PO QAM 12/17/20 12/17/20 History atorvastatin 40 mg PO QPM 12/17/20 12/17/20 History bicalutamide [Casodex] 50 mg PO QPM 12/17/20 12/17/20 History duloxetine 30 mg PO QAM 12/17/20 12/17/20 History insulin glargine [Basaglar KwikPen 26 unit SQ QPM 12/17/20 12/17/20 History U-100 Insulin] isosorbide mononitrate 30 mg PO QAM 12/17/20 12/17/20 History magnesium oxide 400 mg PO QAM 12/17/20 12/17/20 History warfarin 2.5 mg PO 4XWK 12/17/20 12/17/20 History warfarin 5 mg PO 3XWK 12/17/20 12/17/20 History Patient History Medical History 2-vessel coronary artery disease Adenomatous polyposis coli Age-related cognitive decline Allergic rhinitis Anemia Atopic dermatitis Back pain Constipation Diabetes mellitus with neurological manifestation Diabetic nephropathy Diabetic peripheral neuropathy Esophageal reflux Essential familial hypercholesterolemia Falling Falling Falling Hearing loss of both ears due to cerumen impaction Hypercholesterolemia Hypertension Impingement syndrome of right shoulder Lumbar radiculopathy Proteinuria Sensorineural hearing loss of both ears SNHL (sensorineural hearing loss) Stage 3b chronic kidney disease Type 2 diabetes mellitus with insulin therapy Uncontrolled diabetes mellitus Vitamin D deficiency Surgical History H/O sinus surgery History of colonoscopy History of hernia repair Family History Other Cancer Diabetes Social History Smoking Status: Former smoker Smoking End Date: 1987; Second Hand Exposure: No; Do You Dip or Chew Tobacco: No; Tobacco Cessation Education Requested by Patient: No Hx Alcohol Use: No Hx Substance Use: No Preferred Language: Togolese Communication Ability: Effective Aviation Survival Technician Required: No Beliefs That Will Affect Care: None Current Living Situation: Spouse Other Information That Helps Us Care for You: No Feels Safe at Home: Yes Safety Concerns: Feels Safe At This Time caffeine: Yes Seatbelt Use: sometimes Assistive Devices: Cane, Denture - Upper, Denture - Lower, Glasses and Hearing Aid - Bilateral Review of Systems Review of Systems: All systems reviewed & are unremarkable except as noted in HPI & below Physical Exam Physical Exam: Temp Pulse Resp BP Pulse Ox 36.7 C 64 18 148/84 H 95 12/18/20 12:41 12/18/20 12:41 12/18/20 12:41 12/18/20 12:41 12/18/20 12:41 Constitutional: WD/WN, vitals as above Respiratory: normal respiratory effort, lungs clear to auscultation Cardiovascular: RRR, no murmur, no edema Gastrointestinal (Abdomen): normal bowel sounds, soft, nontender, no hepatosplenomegaly Neurologic: PERRL, EOMI, accommodation nl, no face palsy, no dysarthria Results & Data ([facility]) Vital Signs (Past 12 Hours) Vital Signs Temp Pulse Resp BP BP Pulse Ox 12/18/20 12:41 36.7 C 64 18 148/84 H 95 12/18/20 07:24 36.8 C 66 17 169/91 H 95 12/18/20 03:32 37.1 C 69 18 159/82 H 95 Laboratory Results Cardiac Enzymes 12/17/20 12/17/20 12/18/20 Range/Units 16:00 22:07 06:44 AST 37 (15-37) U/L Troponin I < 0.015 < 0.015 < 0.015 (0-0.045) ng/ml Coagulation 12/17/20 12/18/20 Range/Units 16:00 06:44 PT 70.9 H 39.3 H (9.0-12.0) Seconds CBC 12/17/20 12/18/20 Range/Units 16:00 06:44 WBC 7.71 10.34 (4.8-10.8) K/uL RBC 4.27 L 4.42 L (4.7-6.1) M/uL Hgb 12.7 L 13.5 L (14.0-18.0) g/dL Hct 38.1 L 39.0 L (42-52) % Plt Count 244 255 (130-400) K/uL Neut # (Auto) 4.72 7.33 H (1.4-6.5) K/uL Lymph # (Auto) 2.04 1.82 (1.2-3.4) K/uL Ida # (Auto) 0.70 H 1.01 H (0.11-0.59) K/uL Eos # (Auto) 0.19 0.14 (0-0.5) K/uL Baso # (Auto) 0.04 0.02 (0-0.2) K/uL Comprehensive Metabolic Panel 12/17/20 12/18/20 Range/Units 16:00 06:44 Sodium 139 142 (136-145) mmol/L Potassium 3.9 3.9 (3.5-5.1) mmol/L Chloride 106 111 H (98-107) mmol/L Carbon Dioxide 28 26 (21-32) mmol/L BUN 28 H 29 H (7-18) mg/dl Creatinine 1.65 H 1.36 (0.6-1.4) mg/dl Glucose 203 H 108 H (70-99) mg/dl Calcium 9.4 8.9 (8.5-10.1) mg/dl AST 37 (15-37) U/L ALT 58 (12-78) U/L Alkaline Phosphatase 84 (45-117) U/L Total Protein 7.2 (6.4-8.2) gm/dl Albumin 3.5 (3.4-5.0) gm/dl Intake and Output 12/17/20 12/18/20 12/18/20 22:59 06:59 14:59 Intake Total 1050 / 1200 150 / 1200 175 / 175 Output Total 700 / 700 Balance 1050 / 500 -550 / 500 175 / 175 Intake: IV 500 / 500 Sodium Chloride 0.9% 500 ml @ 500 / 500 999 mls/hr IV .Q31M ONE Rx#: [id number] Oral 550 / 700 150 / 700 175 / 175 Output: Urine 700 / 700 Other: Weight 89.5 kg Weight Measurement Method Built in [facility]
--- NOTE | 2020-12-18 13:50 | Hospitalist Progress Note ---
Date of Service December 18, 2020 Assessment & Plan (1) Hypertensive urgency: Jose L is an 80yo [place] gentleman with a history of HTN, CAD, CKD3, T2DM, CAD, GERD, HLD, PAF on Coumadin who presented to the [facility] ER at the request of his PCP for evaluation of hypertensive urgency vs. emergency (BPs ~ 220/140) alongside new chest pain Hypertensive Urgency vs. Emergency -- no current evidence of new end-organ damage, chest pain resolved, troponins negative - At PCP office, noted to have new-onset chest pain with BP >200/100 -- got nitro + ASA x 1 en route via EMS - Upon arrival, BP noted to be about the same -BPs now greatly improved with addition of losartan -there are multiple discrepancies in meds between [facility] list and PR list as per my d/w [facility] Cardiology -missing losartan/HCT and Hytrin, amlodipine from home list now - Work-up as follows - BMP showing Cr 1.65 (baseline) and now improved to 1.3 - CBC without thrombocytopenia or new anemia - Troponin negative x 3 - ECG with unchanged 1st degree AVB, no conduction/repolarization abnorma lities-repeat ECG today - CXR with normal aortic caliber, mild L-basilar haziness c/w atelectasis - UE/LE pulses 2+ and equal b/l - Nonfocal neuro exam -- no appreciable papilledema on exam - Possibly d/t medication changes: patient's daughter reports he has not been taking losartan-HCTZ + amlodipine d/t hypotension back in August (per Chart) - Casodex is noted to contribute to HTN in 8% of individuals per review, but low suspicion this is cause of severe-range BPs - S/P hydralazine 10mg IV x 1 in ER with good response - Continuous cardiac monitoring-NSR, 1st degree AVB-can transfer off tele if ECG here today unchanged - can dc Neuro checks - Continue home Imdur, metoprolol - Initiated losartan 25mg daily (as, per family hx, has not been taking hctz-losartan at home) -- consider addition of amlodipine thereafter - Consult cardiology - [facility]-appreciated - follow BMP Chest Pain-now resolved - Suspect likely secondary to profound hypertension, increased afterload/cardiac strain - No evidence of ECG, troponin changes c/f ischemia -trops neg x 3 - No evidence of physical exam or CXR findings c/f aortic dissection - Continue to monitor -- suspect this may decrease with blood pressure management - Carefully consider additional nitro p.r.n. - Low threshold for echocardiography - Cardiology consult as above Supratherapeutic INR-INR 8.8 on admission, no bleeding but given hypertensive urgency, gave po Vit K 2.5mg x 1 INR down to 4.4 today - On warfarin for paroxysmal AF - Per daughter -- MWF 5mg / TRSaSu 2.5mg (25mg/week) // ?follows with [facility] anticoagulation - continue to hold home warfarin - Will require coordination with patient's anticoagulation clinic upon d/c - PT/INR in AM Paroxysmal Atrial Fibrillation - NSR upon arrival here, normal rate , continues in NSR - Continue home amiodarone 200mg daily - continue to hold home warfarin as above -ok to transfer off tele T2DM - A1c 9.9 on 10/20 and still elevated here at 9.7% -some hyperglycemia with lunch but AM fasting good - Hold home po medications other than Lantus - Continue home Lantus 26U daily - AC/HS BSG checks with Novolog correction fator to be decreased to 25, goal range 100-140, add on CR 1:12 Other Chronic Medical Problems CKD3: Noted. Baseline Cr ~1.6. Stable to improved today at 1.3 HLD: Continue statin Anxiety/Back Pain: Continue Cymbalta Prostate Cancer: Continue Casodex Diet: CC/HH/Low Sodium Code: Full code PPX: None given supratherapeutic INR Dispo: PCU (2) Stage 3b chronic kidney disease: (3) 2-vessel coronary artery disease: (4) Coronary atherosclerosis of [place] coronary vessel: (5) Benign essential hypertension: (6) Chest pain: (7) Diabetes mellitus with neurological manifestation: (8) Essential familial hypercholesterolemia: (9) Fall: (10) GERD (gastroesophageal reflux disease): (11) Paroxysmal atrial fibrillation: Admission and Anticipated Discharge Date Admission Date: December 17, 2020 Subjective Pt feeling better today, has no complaints. No further chest pain. Has been sleeping most of the day which is apparently what he does at home all day as per his daughter. BPs much improved Tele with NSR, 1st degree AVB, rates 60-70s. Discussed care with Cardiology Review of Systems Review of Systems: All systems reviewed & are unremarkable except as noted in HPI & below Physical Exam Constitutional: WD/WN, vitals as above Eyes: + anicteric sclerae ENMT: Ears: + hearing impairment Neck: trachea midline, no thyromegaly Respiratory: normal respiratory effort, lungs clear to auscultation Cardiovascular: RRR, no murmur, no edema Chest (Breasts): Chest: normal inspection of chest Gastrointestinal (Abdomen): normal bowel sounds, soft, nontender, no hepatosplenomegaly Musculoskeletal: Extremities: extremities normal to inspection; no cyanosis and no clubbing Skin: no rashes, warm and dry Neurologic: moves all extremities and awake; no focal motor deficits Psychiatric: A+Ox3, euthymic affect Lymphatic: no lymphedema Results & Data Results & Data ([facility]) Vital Signs (Past 12 Hours) Vital Signs Temp Pulse Resp BP BP Pulse Ox 12/18/20 12:41 36.7 C 64 18 148/84 H 95 12/18/20 07:24 36.8 C 66 17 169/91 H 95 12/18/20 03:32 37.1 C 69 18 159/82 H 95 Laboratory Results 12/18/20 12/18/20 12/18/20 Range/Units 11:31 07:27 06:44 WBC (4.8-10.8) K/uL RBC (4.7-6.1) M/uL Hgb (14.0-18.0) g/dL Hct (42-52) % MCV (80-100) fL MCH (25-34) pg MCHC (32-36) g/dL RDW Std Deviation (36.4-46.3) fL RDW Coeff of Alexa (11.5-14.5) % Plt Count (130-400) K/uL MPV (7.4-10.4) fL Immature Gran % (Auto) % Neut % (Auto) % Lymph % (Auto) % [place] % (Auto) % Eos % (Auto) % Baso % (Auto) % Neut # (Auto) (1.4-6.5) K/uL Lymph # (Auto) (1.2-3.4) K/uL [place] # (Auto) (0.11-0.59) K/uL Eos # (Auto) (0-0.5) K/uL Baso # (Auto) (0-0.2) K/uL Immature Gran # (Auto) (0.00-0.02) K/uL PT (9.0-12.0) Seconds INR (0.9-1.1) Sodium (136-145) mmol/L Potassium (3.5-5.1) mmol/L Chloride (98-107) mmol/L Carbon Dioxide (21-32) mmol/L Anion Gap (3-11) BUN (7-18) mg/dl Creatinine (0.6-1.4) mg/dl Est Cr Clr Drug Dosing ml/min Est GFR ( Amer) Est GFR (Non-Af Amer) BUN/Creatinine Ratio (10-20) Glucose (70-99) mg/dl POC Glucose 191 H 97 (70-99) mg/dl Estimat Average Glucose mg/dl Hemoglobin A1c (4.5-5.6) % Calcium (8.5-10.1) mg/dl Phosphorus (2.5-4.9) mg/dl Magnesium (1.8-2.4) mg/dl Total Bilirubin (0.2-1) mg/dl AST (15-37) U/L ALT (12-78) U/L Alkaline Phosphatase (45-117) U/L Troponin I < 0.015 (0-0.045) ng/ml Total Protein (6.4-8.2) gm/dl Albumin (3.4-5.0) gm/dl Globulin (2.5-4.0) gm/dl Albumin/Globulin Ratio (0.9-2) Lipase (73-393) U/L Urine Color Urine Appearance (Clear) Urine pH (4.5-7.5) Ur Specific [place] (1.000-1.030) Urine Protein (Negative) Urine Glucose (UA) (Negative) Urine Ketones (Negative) Urine Blood (Negative) Urine Nitrite (Negative) Urine Bilirubin (Negative) Urine Urobilinogen (Negative) Ur Leukocyte Esterase (Negative) Urine WBC (Auto) (0-5) /hpf Urine RBC (Auto) (0-4) /hpf U Hyaline Cast (Auto) (0-5) /lpf U Epithel Cells (Auto) (0-5) /lpf Urine Bacteria (Auto) (Negative) COVID-19 Eval Order SARS-CoV-2 (PCR) (Negative) Influenza Type A (PCR) (Neg) Influenza Type B (PCR) (Neg) RSV (RT-PCR) (Neg) 12/18/20 12/18/20 12/18/20 Range/Units 06:44 06:44 06:44 WBC (4.8-10.8) K/uL RBC (4.7-6.1) M/uL Hgb (14.0-18.0) g/dL Hct (42-52) % MCV (80-100) fL MCH (25-34) pg MCHC (32-36) g/dL RDW Std Deviation (36.4-46.3) fL RDW Coeff of Alexa (11.5-14.5) % Plt Count (130-400) K/uL MPV (7.4-10.4) fL Immature Gran % (Auto) % Neut % (Auto) % Lymph % (Auto) % [place] % (Auto) % Eos % (Auto) % Baso % (Auto) % Neut # (Auto) (1.4-6.5) K/uL Lymph # (Auto) (1.2-3.4) K/uL [place] # (Auto) (0.11-0.59) K/uL Eos # (Auto) (0-0.5) K/uL Baso # (Auto) (0-0.2) K/uL Immature Gran # (Auto) (0.00-0.02) K/uL PT 39.3 H (9.0-12.0) Seconds INR 4.4 H (0.9-1.1) Sodium 142 (136-145) mmol/L Potassium 3.9 (3.5-5.1) mmol/L Chloride 111 H (98-107) mmol/L Carbon Dioxide 26 (21-32) mmol/L Anion Gap 5.0 (3-11) BUN 29 H (7-18) mg/dl Creatinine 1.36 (0.6-1.4) mg/dl Est Cr Clr Drug Dosing 44.6 ml/min Est GFR ( Amer) 55.8 Est GFR (Non-Af Amer) 48.1 BUN/Creatinine Ratio 21.0 H (10-20) Glucose 108 H (70-99) mg/dl POC Glucose (70-99) mg/dl Estimat Average Glucose 232 mg/dl Hemoglobin A1c 9.7 H (4.5-5.6) % Calcium 8.9 (8.5-10.1) mg/dl Phosphorus (2.5-4.9) mg/dl Magnesium 2.2 (1.8-2.4) mg/dl Total Bilirubin (0.2-1) mg/dl AST (15-37) U/L ALT (12-78) U/L Alkaline Phosphatase (45-117) U/L Troponin I (0-0.045) ng/ml Total Protein (6.4-8.2) gm/dl Albumin (3.4-5.0) gm/dl Globulin (2.5-4.0) gm/dl Albumin/Globulin Ratio (0.9-2) Lipase (73-393) U/L Urine Color Urine Appearance (Clear) Urine pH (4.5-7.5) Ur Specific [place] (1.000-1.030) Urine Protein (Negative) Urine Glucose (UA) (Negative) Urine Ketones (Negative) Urine Blood (Negative) Urine Nitrite (Negative) Urine Bilirubin (Negative) Urine Urobilinogen (Negative) Ur Leukocyte Esterase (Negative) Urine WBC (Auto) (0-5) /hpf Urine RBC (Auto) (0-4) /hpf U Hyaline Cast (Auto) (0-5) /lpf U Epithel Cells (Auto) (0-5) /lpf Urine Bacteria (Auto) (Negative) COVID-19 Eval Order SARS-CoV-2 (PCR) (Negative) Influenza Type A (PCR) (Neg) Influenza Type B (PCR) (Neg) RSV (RT-PCR) (Neg) 12/18/20 12/17/20 12/17/20 Range/Units 06:44 22:07 21:35 WBC 10.34 (4.8-10.8) K/uL RBC 4.42 L (4.7-6.1) M/uL Hgb 13.5 L (14.0-18.0) g/dL Hct 39.0 L (42-52) % MCV 88.2 (80-100) fL MCH 30.5 (25-34) pg MCHC 34.6 (32-36) g/dL RDW Std Deviation 43.1 (36.4-46.3) fL RDW Coeff of Alexa 13.5 (11.5-14.5) % Plt Count 255 (130-400) K/uL MPV 10.2 (7.4-10.4) fL Immature Gran % (Auto) 0.2 % Neut % (Auto) 70.8 % Lymph % (Auto) 17.6 % [place] % (Auto) 9.8 % Eos % (Auto) 1.4 % Baso % (Auto) 0.2 % Neut # (Auto) 7.33 H (1.4-6.5) K/uL Lymph # (Auto) 1.82 (1.2-3.4) K/uL [place] # (Auto) 1.01 H (0.11-0.59) K/uL Eos # (Auto) 0.14 (0-0.5) K/uL Baso # (Auto) 0.02 (0-0.2) K/uL Immature Gran # (Auto) 0.02 (0.00-0.02) K/uL PT (9.0-12.0) Seconds INR (0.9-1.1) Sodium (136-145) mmol/L Potassium (3.5-5.1) mmol/L Chloride (98-107) mmol/L Carbon Dioxide (21-32) mmol/L Anion Gap (3-11) BUN (7-18) mg/dl Creatinine (0.6-1.4) mg/dl Est Cr Clr Drug Dosing ml/min Est GFR ( Amer) Est GFR (Non-Af Amer) BUN/Creatinine Ratio (10-20) Glucose (70-99) mg/dl POC Glucose 119 H (70-99) mg/dl Estimat Average Glucose mg/dl Hemoglobin A1c (4.5-5.6) % Calcium (8.5-10.1) mg/dl Phosphorus (2.5-4.9) mg/dl Magnesium (1.8-2.4) mg/dl Total Bilirubin (0.2-1) mg/dl AST (15-37) U/L ALT (12-78) U/L Alkaline Phosphatase (45-117) U/L Troponin I < 0.015 (0-0.045) ng/ml Total Protein (6.4-8.2) gm/dl Albumin (3.4-5.0) gm/dl Globulin (2.5-4.0) gm/dl Albumin/Globulin Ratio (0.9-2) Lipase (73-393) U/L Urine Color Urine Appearance (Clear) Urine pH (4.5-7.5) Ur Specific [place] (1.000-1.030) Urine Protein (Negative) Urine Glucose (UA) (Negative) Urine Ketones (Negative) Urine Blood (Negative) Urine Nitrite (Negative) Urine Bilirubin (Negative) Urine Urobilinogen (Negative) Ur Leukocyte Esterase (Negative) Urine WBC (Auto) (0-5) /hpf Urine RBC (Auto) (0-4) /hpf U Hyaline Cast (Auto) (0-5) /lpf U Epithel Cells (Auto) (0-5) /lpf Urine Bacteria (Auto) (Negative) COVID-19 Eval Order SARS-CoV-2 (PCR) (Negative) Influenza Type A (PCR) (Neg) Influenza Type B (PCR) (Neg) RSV (RT-PCR) (Neg) 12/17/20 12/17/20 12/17/20 Range/Units 17:15 17:15 17:00 WBC (4.8-10.8) K/uL RBC (4.7-6.1) M/uL Hgb (14.0-18.0) g/dL Hct (42-52) % MCV (80-100) fL MCH (25-34) pg MCHC (32-36) g/dL RDW Std Deviation (36.4-46.3) fL RDW Coeff of Alexa (11.5-14.5) % Plt Count (130-400) K/uL MPV (7.4-10.4) fL Immature Gran % (Auto) % Neut % (Auto) % Lymph % (Auto) % [place] % (Auto) % Eos % (Auto) % Baso % (Auto) % Neut # (Auto) (1.4-6.5) K/uL Lymph # (Auto) (1.2-3.4) K/uL [place] # (Auto) (0.11-0.59) K/uL Eos # (Auto) (0-0.5) K/uL Baso # (Auto) (0-0.2) K/uL Immature Gran # (Auto) (0.00-0.02) K/uL PT (9.0-12.0) Seconds INR (0.9-1.1) Sodium (136-145) mmol/L Potassium (3.5-5.1) mmol/L Chloride (98-107) mmol/L Carbon Dioxide (21-32) mmol/L Anion Gap (3-11) BUN (7-18) mg/dl Creatinine (0.6-1.4) mg/dl Est Cr Clr Drug Dosing ml/min Est GFR ( Amer) Est GFR (Non-Af Amer) BUN/Creatinine Ratio (10-20) Glucose (70-99) mg/dl POC Glucose (70-99) mg/dl Estimat Average Glucose mg/dl Hemoglobin A1c (4.5-5.6) % Calcium (8.5-10.1) mg/dl Phosphorus (2.5-4.9) mg/dl Magnesium (1.8-2.4) mg/dl Total Bilirubin (0.2-1) mg/dl AST (15-37) U/L ALT (12-78) U/L Alkaline Phosphatase (45-117) U/L Troponin I (0-0.045) ng/ml Total Protein (6.4-8.2) gm/dl Albumin (3.4-5.0) gm/dl Globulin (2.5-4.0) gm/dl Albumin/Globulin Ratio (0.9-2) Lipase (73-393) U/L Urine Color Yellow Urine Appearance Clear (Clear) Urine pH 7.5 (4.5-7.5) Ur Specific [place] 1.009 (1.000-1.030) Urine Protein 2+ H (Negative) Urine Glucose (UA) 1+ H (Negative) Urine Ketones Negative (Negative) Urine Blood Negative (Negative) Urine Nitrite Negative (Negative) Urine Bilirubin Negative (Negative) Urine Urobilinogen Negative (Negative) Ur Leukocyte Esterase Negative (Negative) Urine WBC (Auto) 0 (0-5) /hpf Urine RBC (Auto) 0-4 (0-4) /hpf U Hyaline Cast (Auto) 0 (0-5) /lpf U Epithel Cells (Auto) 5-10 H (0-5) /lpf Urine Bacteria (Auto) Negative (Negative) COVID-19 Eval Order CovFluRsv at [facility] SARS-CoV-2 (PCR) NEGATIVE (Negative) Influenza Type A (PCR) Negative (Neg) Influenza Type B (PCR) Negative (Neg) RSV (RT-PCR) Negative (Neg) 12/17/20 12/17/20 12/17/20 Range/Units 16:00 16:00 16:00 WBC (4.8-10.8) K/uL RBC (4.7-6.1) M/uL Hgb (14.0-18.0) g/dL Hct (42-52) % MCV (80-100) fL MCH (25-34) pg MCHC (32-36) g/dL RDW Std Deviation (36.4-46.3) fL RDW Coeff of Alexa (11.5-14.5) % Plt Count (130-400) K/uL MPV (7.4-10.4) fL Immature Gran % (Auto) % Neut % (Auto) % Lymph % (Auto) % [place] % (Auto) % Eos % (Auto) % Baso % (Auto) % Neut # (Auto) (1.4-6.5) K/uL Lymph # (Auto) (1.2-3.4) K/uL [place] # (Auto) (0.11-0.59) K/uL Eos # (Auto) (0-0.5) K/uL Baso # (Auto) (0-0.2) K/uL Immature Gran # (Auto) (0.00-0.02) K/uL PT 70.9 H (9.0-12.0) Seconds INR 8.3 H* (0.9-1.1) Sodium 139 (136-145) mmol/L Potassium 3.9 (3.5-5.1) mmol/L Chloride 106 (98-107) mmol/L Carbon Dioxide 28 (21-32) mmol/L Anion Gap 4.0 (3-11) BUN 28 H (7-18) mg/dl Creatinine 1.65 H (0.6-1.4) mg/dl Est Cr Clr Drug Dosing 39.8 ml/min Est GFR ( Amer) 44.1 Est GFR (Non-Af Amer) 38.1 BUN/Creatinine Ratio 17.0 (10-20) Glucose 203 H (70-99) mg/dl POC Glucose (70-99) mg/dl Estimat Average Glucose mg/dl Hemoglobin A1c (4.5-5.6) % Calcium 9.4 (8.5-10.1) mg/dl Phosphorus 3.6 (2.5-4.9) mg/dl Magnesium 2.3 (1.8-2.4) mg/dl Total Bilirubin 0.5 (0.2-1) mg/dl AST 37 (15-37) U/L ALT 58 (12-78) U/L Alkaline Phosphatase 84 (45-117) U/L Troponin I < 0.015 (0-0.045) ng/ml Total Protein 7.2 (6.4-8.2) gm/dl Albumin 3.5 (3.4-5.0) gm/dl Globulin 3.7 (2.5-4.0) gm/dl Albumin/Globulin Ratio 0.9 (0.9-2) Lipase 211 (73-393) U/L Urine Color Urine Appearance (Clear) Urine pH (4.5-7.5) Ur Specific [place] (1.000-1.030) Urine Protein (Negative) Urine Glucose (UA) (Negative) Urine Ketones (Negative) Urine Blood (Negative) Urine Nitrite (Negative) Urine Bilirubin (Negative) Urine Urobilinogen (Negative) Ur Leukocyte Esterase (Negative) Urine WBC (Auto) (0-5) /hpf Urine RBC (Auto) (0-4) /hpf U Hyaline Cast (Auto) (0-5) /lpf U Epithel Cells (Auto) (0-5) /lpf Urine Bacteria (Auto) (Negative) COVID-19 Eval Order SARS-CoV-2 (PCR) (Negative) Influenza Type A (PCR) (Neg) Influenza Type B (PCR) (Neg) RSV (RT-PCR) (Neg) 12/17/20 Range/Units 16:00 WBC 7.71 (4.8-10.8) K/uL RBC 4.27 L (4.7-6.1) M/uL Hgb 12.7 L (14.0-18.0) g/dL Hct 38.1 L (42-52) % MCV 89.2 (80-100) fL MCH 29.7 (25-34) pg MCHC 33.3 (32-36) g/dL RDW Std Deviation 43.9 (36.4-46.3) fL RDW Coeff of Alexa 13.4 (11.5-14.5) % Plt Count 244 (130-400) K/uL MPV 10.5 H (7.4-10.4) fL Immature Gran % (Auto) 0.3 % Neut % (Auto) 61.1 % Lymph % (Auto) 26.5 % [place] % (Auto) 9.1 % Eos % (Auto) 2.5 % Baso % (Auto) 0.5 % Neut # (Auto) 4.72 (1.4-6.5) K/uL Lymph # (Auto) 2.04 (1.2-3.4) K/uL [place] # (Auto) 0.70 H (0.11-0.59) K/uL Eos # (Auto) 0.19 (0-0.5) K/uL Baso # (Auto) 0.04 (0-0.2) K/uL Immature Gran # (Auto) 0.02 (0.00-0.02) K/uL PT (9.0-12.0) Seconds INR (0.9-1.1) Sodium (136-145) mmol/L Potassium (3.5-5.1) mmol/L Chloride (98-107) mmol/L Carbon Dioxide (21-32) mmol/L Anion Gap (3-11) BUN (7-18) mg/dl Creatinine (0.6-1.4) mg/dl Est Cr Clr Drug Dosing ml/min Est GFR ( Amer) Est GFR (Non-Af Amer) BUN/Creatinine Ratio (10-20) Glucose (70-99) mg/dl POC Glucose (70-99) mg/dl Estimat Average Glucose mg/dl Hemoglobin A1c (4.5-5.6) % Calcium (8.5-10.1) mg/dl Phosphorus (2.5-4.9) mg/dl Magnesium (1.8-2.4) mg/dl Total Bilirubin (0.2-1) mg/dl AST (15-37) U/L ALT (12-78) U/L Alkaline Phosphatase (45-117) U/L Troponin I (0-0.045) ng/ml Total Protein (6.4-8.2) gm/dl Albumin (3.4-5.0) gm/dl Globulin (2.5-4.0) gm/dl Albumin/Globulin Ratio (0.9-2) Lipase (73-393) U/L Urine Color Urine Appearance (Clear) Urine pH (4.5-7.5) Ur Specific [place] (1.000-1.030) Urine Protein (Negative) Urine Glucose (UA) (Negative) Urine Ketones (Negative) Urine Blood (Negative) Urine Nitrite (Negative) Urine Bilirubin (Negative) Urine Urobilinogen (Negative) Ur Leukocyte Esterase (Negative) Urine WBC (Auto) (0-5) /hpf Urine RBC (Auto) (0-4) /hpf U Hyaline Cast (Auto) (0-5) /lpf U Epithel Cells (Auto) (0-5) /lpf Urine Bacteria (Auto) (Negative) COVID-19 Eval Order SARS-CoV-2 (PCR) (Negative) Influenza Type A (PCR) (Neg) Influenza Type B (PCR) (Neg) RSV (RT-PCR) (Neg) PG Care Time/CCT Total # of Minutes Spent Total Time Spent with Patient: Total time spent is greater than 50% in coordination of care (as documented) at patient's floor/unit and/or counseling patient: Coding Level of Care Code 10233 Subseq Hosp Care Lvl 3 Diagnoses Hypertensive urgency I16.0 Stage 3b chronic kidney disease N18.3 2-vessel coronary artery disease I25.10 Coronary atherosclerosis of [place] coronary vessel I25.10 Benign essential hypertension I10 Chest pain R07.9 Diabetes mellitus with neurological manifestation E11.49 Essential familial hypercholesterolemia E78.01 Fall W19.XXXA GERD (gastroesophageal reflux disease) K21.9 Paroxysmal atrial fibrillation I48.0
--- NOTE | 2020-12-18 14:12 | Communication Note ---
Date of Service: December 18, 2020 Repeat EKG reveals sinus rhythm at 67 bpm with long first-degree AV block, MI interval 330 ms, age-indeterminate inferior infarct pattern noted in leads III and aVF. Although the inferior infarct pattern was not observed on the 12/17/2020 EKG, this was noted on previous historical EKGs including outpatient EKG performed at [facility] dated 09/30/2020. Case discussed with Dr. Del Rosario by phone. OK to transfer patient off of telemetry.
--- NOTE | 2020-12-18 15:41 | Electrocardiogram Report ---
Test Reason : Blood Pressure : / mmHG Vent. Rate : 067 BPM Atrial Rate : 067 BPM P-R Int : 332 ms QRS Dur : 094 ms QT Int : 464 ms P-R-T Axes : -01 008 015 degrees QTc Int : 490 ms Sinus rhythm with 1st degree A-V block Inferior infarct , age undetermined Abnormal ECG When compared with ECG of 17-DEC-2020 15:52, Inferior infarct is now Present Confirmed by Sherif Jonas ([id number]) on 12/18/2020 3:41:08 PM Referred By: Jb Bean Confirmed By:Sherif Jonas
[2020-12-18] MEDS: BICALUTAMIDE 50 MG TAB PO SCH (20:37)
[2020-12-18] MEDS: ATORVASTATIN 40 MG TAB PO SCH (20:38)
[2020-12-18] MEDS: INSULIN GLARGINE SOLOSTAR 100 UNITS/ML 3 ML PEN SQ SCH (21:11)
[2020-12-19 06:27] LABS: INR 1.9 (0.9-1.1); Prothrombin Time 18.7 Seconds (9.0-12.0)
[2020-12-19 06:49] LABS: BUN Creatinine Ratio 24.2 (10-20); Calcium 8.9 mg/dl (8.5-10.1); Creatinine Clr Calc Pharmacy 36.3 ml/min; Est GFR (African American) 43.5; Est GFR (Non-African American) 37.5; Potassium 3.7 mmol/L (3.5-5.1)
[2020-12-19] MEDS: INSULIN ASPART 100 UNITS/ML 3 ML PEN SC SCH ×2 (08:48→12:00)
[2020-12-19] MEDS: OMEGA-3 (PURIFIED FISH OIL) 1 GM CAP PO SCH (08:50)
[2020-12-19] MEDS: LOSARTAN POTASSIUM 25 MG TAB PO SCH (08:50)
[2020-12-19] MEDS: METOPROLOL TARTRATE 25 MG TAB PO SCH (08:50)
[2020-12-19] MEDS: MAGNESIUM OXIDE 400 MG TAB PO SCH (08:51)
[2020-12-19] MEDS: ASPIRIN 81 MG ECTAB PO SCH (08:51)
[2020-12-19] MEDS: POTASSIUM CHLORIDE 10 MEQ TABCR PO SCH (08:51)
[2020-12-19] MEDS: AMIODARONE 200 MG TAB PO SCH (08:51)
[2020-12-19] MEDS: ISOSORBIDE MONO EXTENDED REL 30 MG TABCR PO SCH (08:51)
[2020-12-19] MEDS: DULoxetine HCL 30 MG CAP PO SCH (08:51)
[2020-12-19] MEDS ORDERED: ERGOCALCIFEROL 50,000 UNITS 1250 MCG CAP PO SCH (09:00)
--- NOTE | 2020-12-19 12:02 | Cardiology Progress Note ---
Date of Service December 19, 2020 Assessment & Plan (1) Chest pain: (2) Hypertensive urgency: (3) Paroxysmal atrial fibrillation: Chest pain, in the setting of hypertensive urgency. Serial troponin I levels were undetectable x3. EKG without ischemic changes. Blood pressure ideally controlled for the last several measurements overnight and this morning, most recently 114/75. Question of losartan/HCTZ has been discontinued as an outpatient due to concerns of worsening renal function. Currently creatinine is less than 2, and I think it is reasonable to be on losartan 25 mg daily without the HCTZ. Would recommend ongoing medical therapy with aspirin 81 mg daily given presumed underlying coronary disease, metoprolol, isosorbide mononitrate, losartan, atorvastatin. Stable from cardiac perspective for discharge. PAROXYSMAL ATRIAL FIBRILLATION / FLUTTER Patient has remained in sinus rhythm. Long first-degree AV block noted therefore he is on low-dose metoprolol tartrate 25 mg twice daily, amiodarone. INR had been supratherapeutic on presentation, 8.3, trended down to 4.4 yesterday, and 1.9 today. Discharge on previous home regimen. Follow up: already has visit with Dr Mandel next week, 12/22/20, [facility], Patient arrival 1:45, for 2 pm visit. Admission and Anticipated Discharge Date Admission Date: December 17, 2020 Subjective Mr. Conde is seen in cardiology follow-up of hypertension and chest discomfort. He has a significant hearing impairment. Interview was supplemented with writing him paper messages. He denies chest discomfort. Blood pressure is much better controlled. He is no longer on telemetry. Physical Exam Physical Exam: Temp Pulse Resp BP Pulse Ox 36.7 C 71 17 114/75 92 12/19/20 06:29 12/19/20 08:54 12/19/20 06:29 12/19/20 08:54 12/19/20 06:29 Constitutional: WD/WN, vitals as above Respiratory: normal respiratory effort, lungs clear to auscultation Cardiovascular: Rate/Rhythm: + irregularly irregular Heart Sounds: + murmur (1/6 M) Vessels: no JVD Extremities: no edema Neurologic: PERRL, EOMI, accommodation nl, no face palsy, no dysarthria Results & Data ([facility]) Vital Signs (Past 12 Hours) Vital Signs Temp Pulse Resp BP BP Pulse Ox 12/19/20 08:54 71 114/75 12/19/20 06:29 36.7 C 56 L 17 120/67 92 Laboratory Results Coagulation 12/19/20 Range/Units 06:03 PT 18.7 H (9.0-12.0) Seconds Comprehensive Metabolic Panel 12/19/20 Range/Units 06:03 Sodium 141 (136-145) mmol/L Potassium 3.7 (3.5-5.1) mmol/L Chloride 111 H (98-107) mmol/L Carbon Dioxide 24 (21-32) mmol/L BUN 40 H (7-18) mg/dl Creatinine 1.67 H D (0.6-1.4) mg/dl Glucose 105 H (70-99) mg/dl Calcium 8.9 (8.5-10.1) mg/dl Intake and Output 12/18/20 12/19/20 12/19/20 22:59 06:59 14:59 Intake Total 240 / 1055 0 / 1055 Balance 240 / 1055 0 / 1055 Intake: Oral 240 / 1055 0 / 1055 Other: Weight 85.4 kg Weight Measurement Method Built in [facility]
--- NOTE | 2020-12-19 12:28 | Discharge Summary ---
Date of Service December 19, 2020 Admission HPI Per Admitting Provider Jose L is an 80yo [id number] gentleman with a history of HTN, CAD, CKD3, T2DM, CAD, GERD, HLD, PAF on Coumadin who presented to the [facility] ER at the request of his PCP for evaluation of severe-range BPs (220/140) alongside new chest pain. Patient is very hard of hearing, which limits conversation/history; his daughter aids with history. Jose L reports that he was otherwise in his normal health until early this afternoon when he noticed substernal chest pain around 1400. He proceeded to go to is scheduled PCP visit with Dr. Bean, where he was noted to have a BP of 220/140. EMS was called given the combination of symptoms and BPs, and he was given ASA and nitroglycerin en route with improvement of his chest pain. Jose L reports being in his normal health up until this point. He has not experienced this CP before; at baseline, no shortness of breath or chest pressure with exertion. He denies headaches or changes in vision throughout this time. Denies weakness or new numbness/tingling. Denies shortness of breath. He denies any recent changes in diet to me. He denies any recent illnesses. His daughter does note that following hypotensive readings obtained earlier in the year (August - noted in chart), some of his blood pressure medications were changed. Of note, the daughter arranges his medications each week, and his makes sure that he takes them each day -- so he has been taking his medications as prescribed per daughter. Notably, she notes that he was told to hold the losartan-HCTZ and amlodipine ; however, it is unclear when this hold was initiated or when the last time the patient took the medication -- last prescribe date (for losartan-HCTZ) was 08/26/20, and cardiology note from 09/20 (scanned into [facility] system) does mention recommendation to continue. He has otherwise been taking his metoprolol, isosorbide mono as prescribed. In the ER, he was found to be hypertensive to 217/122 and HRs ~60. While he complained of mild chest pain, he was not experiencing any headache, changes in vision, or FNDs. His renal function was at baseline (Cr 1.65). H+H stable, platelets normal. LFTs normal. Troponin negative. CXR showing some L basilar haziness, likely c/w atelectasis. Received IV hydralazine 10mg with steady decrease in pressures to around the ~160 SBP range. Principal Diagnosis Chest pain, Hypertensive urgency Discharge Exam Constitutional WD/WN, vitals as above Eyes + anicteric sclerae ENMT Ears: + hearing impairment Neck trachea midline, no thyromegaly Respiratory normal respiratory effort, lungs clear to auscultation Cardiovascular RRR, no murmur, no edema Chest (Breasts) Chest: normal inspection of chest Gastrointestinal (Abdomen) normal bowel sounds, soft, nontender, no hepatosplenomegaly Musculoskeletal Extremities: extremities normal to inspection; no cyanosis and no clubbing Skin no rashes, warm and dry Neurologic moves all extremities and awake; no focal motor deficits Psychiatric Orientation: alert, oriented to person, oriented to place and cooperative Lymphatic no lymphedema Discharge Data Allergies Allergy/AdvReac Type Severity Reaction Status Date / Time No Known Drug Allergies Allergy Verified 12/17/20 16:00 Consultations 12/17/20 17:39 ED Decision to Admit Stat 12/17/20 21:37 Consult Cardiology Routine Ordered Studies Chest X-Ray 12/17/20 16:06 XR chest 1V portable CLINICAL HISTORY: Chest Pain COMPARISON STUDY: Chest radiograph May 27, 2019. FINDINGS: Lung volumes are mildly diminished. There is no pneumothorax or pleural effusion. Minimal bibasilar opacities are present. Note is made of cardiomegaly without evidence for pulmonary edema. IMPRESSION: 1. Low lung volumes with bibasilar opacities that favor atelectasis. 2. Cardiomegaly. No evidence for pulmonary edema. ACT 112: Negative or not required by law. Electronically signed by: Albino Kim M.D. 12/17/2020 4:27 PM Diabetes Follow up Diabetes Follow-up Needed for HgbA1c >9% Hospital Course (1) Hypertensive urgency: Jose L is an 80yo mtgi-[id number] gentleman with a history of HTN, CAD, CKD3, T2DM, CAD, GERD, HLD, PAF on Coumadin who presented to the [facility] ER at the request of his PCP for evaluation of hypertensive urgency vs. emergency (BPs ~ 220/140) alongside new chest pain Hypertensive Urgency -- no current evidence of new end-organ damage, chest pain resolved, troponins negative - At PCP office, noted to have new-onset chest pain with BP >200/100 -- got nitro + ASA x 1 en route via EMS - Upon arrival, BP noted to be about the same -BPs now greatly improved with addition of losartan 25mg daily -there are multiple discrepancies in meds between [facility] list and [place] list as per my d/w [facility] -missing losartan/HCT, Hytrin, amlodipine from home list now - Work-up as follows - BMP showing Cr 1.65 (baseline) - CBC without thrombocytopenia or new anemia - Troponin negative x 3 - ECG with unchanged 1st degree AVB, no conduction/repolarization abnormalit ies-repeat ECG similar - CXR with normal aortic caliber, mild L-basilar haziness c/w atelectasis - UE/LE pulses 2+ and equal b/l - Nonfocal neuro exam -- no appreciable papilledema on exam - Possibly d/t medication changes: patient's daughter reports he has not been taking losartan-HCTZ + amlodipine d/t hypotension back in August (per Chart) - Casodex is noted to contribute to HTN in 8% of individuals per review, but low suspicion this is cause of severe-range BPs - S/P hydralazine 10mg IV x 1 in ER with good response - Continuous cardiac monitoring-NSR, 1st degree AVB - Continue home Imdur, metoprolol - Initiated losartan 25mg daily (as, per family hx, has not been taking hctz- losartan at home) and now BPs much improved - Consult cardiology - [facility]-appreciated stable for dc to home with close Cardio follow up planned in 3 days Chest Pain-now resolved - Suspect likely secondary to profound hypertension, increased afterload/cardiac strain - No evidence of ECG, troponin changes c/f ischemia -trops neg x 3 - No evidence of physical exam or CXR findings c/f aortic dissection - Cardiology consult as above Supratherapeutic INR-INR 8.8 on admission, no bleeding but given hypertensive urgency, gave po Vit K 2.5mg x 1 INR down to 1.9 on day of discharge - On warfarin for paroxysmal AF - Per daughter -- MWF 5mg / TRSaSu 2.5mg (25mg/week) // follows with [facility] anticoagulation - restart home warfarin and check INR as outpt in 3 days Paroxysmal Atrial Fibrillation - NSR upon arrival here, normal rate , continues in NSR - Continue home amiodarone 200mg daily - continue warfarin as above T2DM - A1c 9.9 on 10/20 and still elevated here at 9.7% -some hyperglycemia with lunch but AM fasting good -restart home po medications - Continue home Lantus 26U daily Other Chronic Medical Problems CKD3: Noted. Baseline Cr ~1.6. Stable HLD: Continue statin Anxiety/Back Pain: Continue Cymbalta Prostate Cancer: Continue Casodex Diet: CC/HH/Low Sodium Code: Full code PPX: None given supratherapeutic INR Dispo: dc to home with home health to be arranged by [employer] (2) Stage 3b chronic kidney disease: (3) 2-vessel coronary artery disease: (4) Coronary atherosclerosis of [place] coronary vessel: (5) Benign essential hypertension: (6) Chest pain: (7) Diabetes mellitus with neurological manifestation: (8) Essential familial hypercholesterolemia: (9) Fall: (10) GERD (gastroesophageal reflux disease): (11) Paroxysmal atrial fibrillation: Total Time Total Time Spent Total Time Spent (In Minutes): 35 min Total Time Includes: Examination of the Patient, Discharge Planning and Medication Reconciliation Discharge Plan Discharge Items Patient Disposition: Home - Home Health Services Reason For Visit: HTN URGENCY/EMERGENCY Discharge Diagnosis: Hypertensive urgency, chest pain Condition on Discharge: Good Activity: Resume your previous activity Non-emergency contact: Primary Care Provider and Director Of Transportation Call non-emergency contact if: you have any medication questions, your symptoms worsen and your pain is not controlled Follow-up/Referrals: Jb Bean MD [Primary Care Provider] - (Follow up within 1-2 weeks.) Ang Mandel MD [Physician] - (Keep your already scheduled appointment with Dr. Mandel on 12/22/20) Diet: Carb Consistent or DM2 and Heart Healthy Addtl Attending Provider Instructions: You were admitted with severely elevated blood pressures and chest pain as a result of those high blood pressures. Your blood pressure was controlled by adding losartan back on to your regimen. Please follow your medication list exactly as written after you go home as there were quite a few discrepancies as to what you have been taking between your medication list at [facility] vs [facility]. Your PT/INR was quite elevated on admission at 8.8 and you were given vitamin K to reverse your coumadin. Please restart your usual dosing of coumadin and have your INR checked at your Cardiology appointment on 12/22/20. Pending Studies at Discharge: No Stand-Alone Forms: My [facility] Qoof, Smoking Cessation Medications and DC Order Prescriptions: New losartan 25 mg Tablet 25 mg PO QAM Qty: 30 RF: 0 Continued acetaminophen 325 mg tablet 650 mg PO Q4H PRN (Reason: pain) Qty: 60 RF: 0 (DME) pen needle, diabetic [BD Ultra-Fine Cordelia Pen Needle] 32 gauge x 5/32" needle See Rx Instructions .ROUTE .MEDSUPPLY Qty: 100 RF: 3 (DME) Contour Test Strips Strip See Dose Instructions .ROUTE .MEDSUPPLY Qty: 100 RF: 3 metoprolol tartrate 50 mg tablet 25 mg PO BID Qty: 90 RF: 3 (DME) lancets Misc See Dose Instructions .ROUTE .MEDSUPPLY Qty: 100 RF: 3 nitroglycerin 0.4 mg tablet, sublingual 0.4 mg sublingual Q5M PRN (Reason: chest pain) Qty: 25 RF: 0 glimepiride 4 mg tablet 4 mg PO BID Qty: 180 RF: 3 ergocalciferol (vitamin D2) 1,250 mcg (50,000 unit) capsule 50,000 unit PO WEEKLY Qty: 12 RF: 1 omega-3 acid ethyl esters 1 gram capsule 1 cap PO BID Qty: 180 RF: 3 aspirin 81 mg Tablet,Delayed Release (Dr/Ec) 81 mg PO QAM RF: 0 warfarin 5 mg tablet 2.5 mg PO 4XWK RF: 0 duloxetine 30 mg capsule,delayed release(DR/EC) 30 mg PO QAM RF: 0 atorvastatin 40 mg tablet 40 mg PO QPM RF: 0 bicalutamide [Casodex] 50 mg tablet 50 mg PO QPM RF: 0 amiodarone 200 mg tablet 200 mg PO QAM RF: 0 isosorbide mononitrate 30 mg tablet extended release 24 hr 30 mg PO QAM RF: 0 warfarin 5 mg tablet 5 mg PO 3XWK RF: 0 Basaglar KwikPen U-100 Insulin 100 unit/mL (3 mL) insulin pen 26 unit SQ QPM RF: 0 magnesium oxide 400 mg magnesium tablet 400 mg PO QAM RF: 0 Discharge Orders: Discharge Order (Routine); Ordered 12/19/20 Ordered By: Eunice Del Rosario Admission Data Admit Date/Time: 12/17/20 20:06 Attending Provider: Eunice Del Rosario Admit Provider: Maurice Olvera Primary Care Provider: Jb Bean Other Providers: Eunice Del Rosario ; Cristopher Carmona ; Pola Curry ; Ang Mandel ; Feliz Nino ; Richy Morgan ; Calvin Villa ; Vikki Blackman ; Vernell Downing ; Laurie Lopez ; Paresh Mayo ; [facility] Other Interventions: Discharge Summary Assessment (RN) Last Done: 12/19/20 12:45 Coding Level of Care Code D/C Day Management >30 mins Diagnoses Hypertensive urgency I16.0 Stage 3b chronic kidney disease N18.3 2-vessel coronary artery disease I25.10 Coronary atherosclerosis of [place] coronary vessel I25.10 Benign essential hypertension I10 Chest pain R07.9 Diabetes mellitus with neurological manifestation E11.49 Essential familial hypercholesterolemia E78.01 Fall W19.XXXA GERD (gastroesophageal reflux disease) K21.9 Paroxysmal atrial fibrillation I48.0
[2020-12-19 12:30] VITALS: BP 94/55; PULSE 75; TEMP 97.5; O2SAT 95
[2020-12-19] MEDS ORDERED: WARFARIN SOD 2.5 MG TAB PO SCH (16:00)
== END 2020-12-19 15:50 | disposition home health service (06) | DRG 305 ==
LOC: ED 15:48 → 2S 20:06 → 2W 12-18 17:25